=== PATIENT | female | born 1985 | race Caucasian/White ===

== ENCOUNTER 2018-05-16 11:42 | Outpatient (REF) | payer SELFPAY ==
[2018-05-16 14:19] LABS: TSH (W/Ref FT4) 1.11 uIU/mL (0.358-3.74)
== END 2018-05-16 12:02 ==
LOC: NCHCN 11:42
PROVIDERS: PCP Nurse Practitioner Family; Visit Provider Nurse Practitioner Family
DX: E89.0 Postprocedural hypothyroidism (principal)
CPT/HCPCS: 84443

== ENCOUNTER 2018-11-08 06:20 | Emergency (ER) | payer SELFPAY ==
[2018-11-08 06:24] VITALS: BP 126/93; PULSE 75; RESP 18; TEMP 36.4; O2SAT 99
--- NOTE | 2018-11-08 06:26 | W.ED.GENAD ---
Discharge Plan Disposition Patient Disposition: HOME Condition: Good Discharge Details Chief Complaint: Sorethroat Clinical Impression: Strep pharyngitis Primary Care Provider: Kelley Martin ED Provider: Wan Santamaria Home Meds and New Rx's Prescriptions: New clindamycin HCl 300 mg capsule 300 mg PO TID 7 Days Qty: 21 RF: 0 No Action acetaminophen [Tylenol Extra Strength] 500 MG tablet 1,000 mg PO Q6H PRN PRNRF: 0 levothyroxine [Synthroid] 112 MCG tablet 112 mcg PO DAILY RF: 0 ibuprofen 200 mg tablet 800 mg PO TID RF: 0 Discharge Instructions Instructions: Strep Throat (ED) Additional Instructions: You have strep throat. Please take the clindamycin 300 mg 3 times daily. Please take this with the yogurt with live cultures to prevent any diarrhea. Please take 1000 mg of Tylenol every 6 hours and 800 mg of ibuprofen every 6 hours to help with the pain sore throat. If you notice any worsening of your symptoms, or any new symptoms such as vomiting, diarrhea, fever, chills, shortness of breath, chest pain, numbness, weakness, or fainting , please return immediately to the emergency department for reevaluation. Please follow up with your primary care provider as soon as possible for reassessment and reevaluation. As always, it was a pleasure participating in your medical care today. Stand Alone Forms: Work Release Referrals: Kelley Martin [Primary Care Provider] - Medical Decision Making This is a pleasant 33-year-old female who presents today for evaluation of sore throat. Symptoms have been present for the last 24 hours. Physical exam demonstrates no concerning meningeal signs. No evidence of peritonsillar abscess. She has notable enlargement of the tonsils with exudate and notable erythema. Signs and symptoms are clinically consistent with strep. Strep testing was done but was negative, unfortunately this does not correlate with her current clinical scenario. We will send for culture, and treat with clindamycin secondary to her penicillin allergy. We discussed red flags which to return, the importance of fluids and NSAIDs. I have extensively reviewed the treatment plan and discharge instructions with the patient. I have addressed all patient concerns at this time. The patient was made aware of what symptoms to monitor for that would warrant a return to the emergency department. Discussed the plan with the patient, they demonstrate verbal understanding and agreement with our assessment and plan at this time. HPI General Date/Time Provider Initiated Documentation: 11/08/18 06:22. HPI Narrative: This is a pleasant 33-year-old female with a past medical history of hypothyroidism who presents today for evaluation of sore throat. Patient states that for the last 24 hours she has had a mild to moderate sore throat. She noticed exudates in her posterior oropharynx today, and keep to the ER for further evaluation and assessment. She denies any headache, posterior neck pain, cough, fever but does admit to occasional chills. She denies any numbness tingling weakness. She denies any other complaints at this time. Related Data Home Medications Medication Instructions Recorded Confirmed acetaminophen [Tylenol Extra 1,000 mg PO Q6H PRN PRN tab-cap 01/09/14 09/07/18 Strength] levothyroxine [Synthroid] 112 mcg PO DAILY 01/07/15 09/07/18 ibuprofen 200 mg tablet 800 mg PO TID tab 04/20/18 09/07/18 clindamycin HCl 300 mg PO TID 7 Days #21 cap 11/08/18 Previous Rx's Medication Instructions Recorded clindamycin HCl 300 mg PO TID 7 Days #21 cap 11/08/18 Allergies Allergy/AdvReac Type Severity Reaction Status Date / Time Penicillins Allergy Mild Uncertain Unverified 08/30/17 15:07 - very young age with previous reaction Sulfa (Sulfonamide Allergy Mild Uncertain Unverified 08/30/17 15:07 Antibiotics) of reaction - very young age w/previous reaction General Stated Complaint: Sorethroat EKTA: 5 Review of Systems Review of Systems All systems reviewed & are unremarkable except as noted in HPI and below PFSH Social History Smoking/Tobacco Use Status: Current-Occasional Tobacco Type: cigarettes Alcohol Intake: never Drug use: Never Substance use type: does not use 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 3.ENT: Atraumatic external nose and ears. Moist MM. Neck: Symmetric, trachea midline, No thyromegaly. Posterior oropharynx demonstrates notable erythema in the posterior oropharynx, enlarged tonsils, and notable tonsillar exudate. Patient demonstrates good movement of cervical neck. There is no nuchal rigidity, no nuchal tenderness. Patient is able to flex the neck without any difficulty or significant pain. Negative Kernig's and Brudzinski sign. 4.CVS: +S1/S2, No murmurs or gallops. Peripheral pulses 2+ and equal in all extremities. Brisk capillary refill in all extremities. 5.RESP: Unlabored respiratory effort. Clear to auscultation bilaterally. No wheezes rales or rhonchi 6.GI: Soft, Nontender/Nondistended, No hepatosplenomegaly. No guarding or rebound. 7.MSK: Normocephalic/Atraumatic, Extremities w/o deformity or ttp No cyanosis or clubbing, Normal movement of all extremities 8.Skin: Warm, Dry. No rashes or lesions. 9.Neuro: observer gravity prospecting II-XII grossly intact. Sensation grossly intact, no focal neurologic deficits. 10.Psych: (AAO) x3. Appropriate mood and affect Course Vital Signs Temperature 36.4 C L 11/08/18 06:24 Pulse 75 11/08/18 06:24 Respiratory Rate 18 11/08/18 06:24 Blood Pressure 126/93 H 11/08/18 06:24 Pulse Oximetry 99 11/08/18 06:24 Temperature 36.4 C L 11/08/18 06:24 Temperature Source Skin 11/08/18 06:24 Pulse 75 11/08/18 06:24 Respiratory Rate 18 11/08/18 06:24 Blood Pressure 126/93 H 11/08/18 06:24 Blood Pressure Position Sitting 11/08/18 06:24 Pulse Oximetry 99 11/08/18 06:24 Oxygen Delivery Method Room Air 11/08/18 06:24 Oxygen Flow Rate 0 11/08/18 06:24
[2018-11-08] MEDS: Clindamycin 300 MG CAP PO (06:36)
== END 2018-11-08 06:43 | disposition home or self-care (01) ==
LOC: ER 06:32
PROVIDERS: Emergency Provider Student in an Organized Health Care Education/Training Program; PCP Nurse Practitioner Family
DX: J02.0 Streptococcal pharyngitis (principal)
CPT/HCPCS: 99283

== ENCOUNTER 2018-12-28 12:01 | Outpatient (CLI) | payer MEDICAID, SELFPAY ==
[2018-12-28 12:45] LABS: Abs Immature Grans 0.04 k/cumm (0.0-0.09); Absolute Basophil Count 0.03 k/cumm (0.0-0.2); Absolute Eosinophil Count 0.21 k/cumm (0.0-0.7); Absolute Lymphocyte Count 2.54 k/cumm (1.2-3.4); Absolute Monocyte Count 0.64 k/cumm (0.11-0.7); Absolute Neutrophil Count 7.96 k/cumm (1.2-6.7); Basophils % 0.3; Eosinophils % 1.8; HCT 37.3 % (36.0-46.0); HGB 12.6 g/dL (12.0-15.5); Immature Grans % 0.4; Lymphocytes % 22.2; Mean Corp. HGB Concentration 33.8 g/dL (32.0-36.0); Mean Corpuscular Volume 91.6 fL (80-95); Mean Platelet Volume 10.3 fL (8.0-11.0); Monocytes % 5.6; Neutrophils % 69.7; Platelet Count 304 x1000/uL (130-400); RBC 4.07 m/cumm (4.00-5.20); RBC Distribution Width 13.1 % (11.7-14.6); White Blood Cell Count 11.42 k/cumm (4.4-10.8)
[2018-12-28 13:40] LABS: FREE T4 1.07 ng/dL (0.76-1.46); TSH 5.43 uIU/mL (0.36-3.74)
[2018-12-29 10:21] LABS: HIV-1/2 Ag & Ab Screen Negative (NEGAT)
[2018-12-29 10:24] LABS: Hepatitis B Surface Ag Negative (NEGAT)
[2018-12-29 10:25] LABS: Rubella IgG Ab (UVM) Positive; Varicella IgG Antibody Positive
[2018-12-29 10:43] LABS: Hepatitis C Ab w Rflx HCV PCR Negative (NEGAT)
[2018-12-29 16:45] LABS: Syphilis Total Ab w/Reflex Nonreactive (Nonreactive)
[2019-01-05 00:20] LABS: Specimen WB Whole Blood
== END 2018-12-28 12:21 ==
PROVIDERS: PCP Nurse Practitioner Family; Visit Provider Advanced Practice Midwife
DX: Z34.91 Encounter for supervision of normal pregnancy, unspecified, first trimester (principal); E03.9 Hypothyroidism, unspecified; Z11.4 Encounter for screening for human immunodeficiency virus [HIV]; Z11.59 Encounter for screening for other viral diseases; Z01.84 Encounter for antibody response examination
CPT/HCPCS: 36415; 81329; 86787; 86803; 86850; 86900; 86901; 87340; 87389; 84439; 84443; 85025; 86762; 86780

== ENCOUNTER 2018-12-28 14:41 | Outpatient (REF) | payer MEDICAID, SELFPAY ==
[2018-12-28 15:31] LABS: *AMPHETAMINES SCREEN URINE Negative (Negative); *BARBITURATES SCREEN URINE Negative (Negative); *BENZODIAZEPINES SCREEN URINE Negative (Negative); Cannabinoids THC Negative (Negative); Cocaine Screen,Urine Negative (Negative); METHADONE URINE SCREEN Negative (Negative); OPIATES URINE SCREEN Negative (Negative)
[2018-12-28 15:37] LABS: Tricyclic Antidepressants Negative (Negative)
[2018-12-29 16:02] LABS: Chlamydia Result Negative (Negative); GC Result Negative (Negative); Specimen Description CERVIX
[2019-01-01 21:09] LABS: Buprenorphine Negative; Norbuprenorphine Negative
== END 2018-12-28 15:01 ==
LOC: LBN 14:41
PROVIDERS: PCP Nurse Practitioner Family; Visit Provider Advanced Practice Midwife
DX: Z34.91 Encounter for supervision of normal pregnancy, unspecified, first trimester (principal); Z11.3 Encounter for screening for infections with a predominantly sexual mode of transmission
CPT/HCPCS: 80307; 87491; 87591; 87086

== ENCOUNTER 2019-01-11 10:40 | Outpatient (CLI) | payer MEDICAID, SELFPAY ==
[2019-01-11 11:04] LABS: Kit/Specimen SENT
== END 2019-01-11 11:00 ==
PROVIDERS: PCP Nurse Practitioner Family; Visit Provider Advanced Practice Midwife
DX: Z34.91 Encounter for supervision of normal pregnancy, unspecified, first trimester (principal); Z36.89 Encounter for other specified antenatal screening
CPT/HCPCS: 36415

== ENCOUNTER 2019-03-10 09:30 | Outpatient (CLI) | payer MEDICAID, SELFPAY ==
[2019-03-10 11:47] LABS: TSH (W/Ref FT4) 3.14 uIU/mL (0.36-3.74)
== END 2019-03-10 09:50 ==
PROVIDERS: PCP Nurse Practitioner Family; Visit Provider Advanced Practice Midwife
DX: E03.9 Hypothyroidism, unspecified (principal)
CPT/HCPCS: 36415; 84443

== ENCOUNTER 2019-05-03 02:26 | Outpatient (CLI) | payer MEDICAID, SELFPAY ==
[2019-05-03 09:17] LABS: HCT 35.8 % (36.0-46.0); HGB 11.9 g/dL (12.0-15.5); Mean Corp. HGB Concentration 33.2 g/dL (32.0-36.0); Mean Corpuscular Hemoglobin 31.2 pg (27.0-33.0); Mean Platelet Volume 10.4 fL (8.0-11.0); Platelet Count 233 x1000/uL (130-400); RBC 3.81 m/cumm (4.00-5.20); RBC Distribution Width 13.5 % (11.7-14.6); White Blood Cell Count 11.98 k/cumm (4.4-10.8)
[2019-05-03 09:19] LABS: Glucose,1 Hr (Glucola) 138 mg/dL (80-140)
[2019-05-03 10:11] LABS: TSH 4.67 uIU/mL (0.36-3.74)
[2019-05-03 10:31] LABS: FREE T4 0.97 ng/dL (0.76-1.46)
== END 2019-05-03 02:46 ==
PROVIDERS: PCP Nurse Practitioner Family; Visit Provider Advanced Practice Midwife
DX: O99.282 Endocrine, nutritional and metabolic diseases complicating pregnancy, second trimester (principal); E03.9 Hypothyroidism, unspecified; Z3A.26 26 weeks gestation of pregnancy
CPT/HCPCS: 36415; 82950; 85027; 84439; 84443

== ENCOUNTER 2019-05-08 07:43 | Outpatient (CLI) | payer MEDICAID, SELFPAY ==
[2019-05-08 09:48] LABS: Glucose 1 Hour 153 mg/dL
[2019-05-08 11:46] LABS: Glucose 3 Hour 123 mg/dL
== END 2019-05-08 08:03 ==
PROVIDERS: PCP Nurse Practitioner Family; Visit Provider Advanced Practice Midwife
DX: R73.09 Other abnormal glucose (principal); Z34.92 Encounter for supervision of normal pregnancy, unspecified, second trimester
CPT/HCPCS: 36415; 82951

== ENCOUNTER 2019-06-15 01:01 | Outpatient (CLI) | payer MEDICAID, SELFPAY ==
--- NOTE | 2019-06-15 11:45 | DI.US_ITS ---
EXAM: US OB RODNEY WEIGHT CLINICAL HISTORY: Hypothyroidism, , E03.9, Z34.90. COMPARISON: OB US 2-3 TRIMESTER TRANSABD*P from 02/25/2011 TECHNIQUE: Limited obstetrical ultrasound. FINDINGS: There is a single living intrauterine gestation. The estimated sonographic age is 34 weeks 1 day. T he fetus is in the cephalic presentation. heart rate is 158 beats per minute. Estimated weight is 2308 grams which is in the 70th percentile. Amniotic fluid index is 14.5 cm. Visually, t his is within normal limits. The placenta is posterior without evidence of previa. IMPRESSION: Single live intrauterine gestation as above. DATA REPOSITORY:
== END 2019-06-15 01:21 ==
PROVIDERS: PCP Nurse Practitioner Family; Visit Provider Advanced Practice Midwife
DX: O99.283 Endocrine, nutritional and metabolic diseases complicating pregnancy, third trimester (principal); E03.9 Hypothyroidism, unspecified; Z3A.34 34 weeks gestation of pregnancy
CPT/HCPCS: 76816

== ENCOUNTER 2019-07-05 16:31 | Outpatient (REF) | payer MEDICAID, SELFPAY | END 2019-07-05 16:51 | LOC: LBN 16:31 | PROVIDERS: PCP Nurse Practitioner Family; Visit Provider Advanced Practice Midwife | DX: Z34.93 Encounter for supervision of normal pregnancy, unspecified, third trimester (principal); Z36.85 Encounter for antenatal screening for Streptococcus B | CPT/HCPCS: 87081 ==

== ENCOUNTER 2019-07-07 16:41 | Outpatient (REF) | payer MEDICAID, SELFPAY | END 2019-07-07 17:01 | LOC: LBN 16:41 | PROVIDERS: PCP Nurse Practitioner Family; Visit Provider Advanced Practice Midwife | DX: Z34.93 Encounter for supervision of normal pregnancy, unspecified, third trimester (principal); Z36.85 Encounter for antenatal screening for Streptococcus B | CPT/HCPCS: 87081 ==

== ENCOUNTER 2019-07-26 15:53 | Outpatient (CLI) | payer MEDICAID, SELFPAY ==
[2019-07-26 16:55] LABS: FREE T4 0.95 ng/dL (0.76-1.46)
== END 2019-07-26 16:13 ==
PROVIDERS: PCP Nurse Practitioner Family; Visit Provider Advanced Practice Midwife
DX: E03.9 Hypothyroidism, unspecified (principal)
CPT/HCPCS: 84439; 84443

== ENCOUNTER 2019-08-02 12:33 | Outpatient (REF) | payer MEDICAID, SELFPAY ==
[2019-08-02 13:59] LABS: *AMPHETAMINES SCREEN URINE Negative (Negative); *BARBITURATES SCREEN URINE Negative (Negative); *BENZODIAZEPINES SCREEN URINE Negative (Negative); Cannabinoids THC Negative (Negative); Cocaine Screen,Urine Negative (Negative); METHADONE URINE SCREEN Negative (Negative); OPIATES URINE SCREEN Negative (Negative)
[2019-08-02 14:00] LABS: Tricyclic Antidepressants Negative (Negative)
[2019-08-10 14:42] LABS: Buprenorphine Negative
== END 2019-08-02 12:53 ==
LOC: LBN 12:33
PROVIDERS: PCP Nurse Practitioner Family; Visit Provider Advanced Practice Midwife
DX: Z34.93 Encounter for supervision of normal pregnancy, unspecified, third trimester (principal)
CPT/HCPCS: 80307

== ENCOUNTER 2019-08-09 02:19 | Inpatient (IN) | payer MEDICAID, SELFPAY ==
[2019-08-09 03:40] LABS: HCT 37.4 % (36.0-46.0); HGB 12.8 g/dL (12.0-15.5); Mean Corp. HGB Concentration 34.2 g/dL (32.0-36.0); Mean Corpuscular Hemoglobin 31.8 pg (27.0-33.0); Mean Corpuscular Volume 92.8 fL (80-95); Mean Platelet Volume 10.5 fL (8.0-11.0); Platelet Count 219 x1000/uL (130-400); RBC 4.03 m/cumm (4.00-5.20); RBC Distribution Width 14.4 % (11.7-14.6); White Blood Cell Count 9.34 k/cumm (4.4-10.8)
[2019-08-09] MEDS: Lactated Ringers 1,000 ML 125 ML IV (07:30)
[2019-08-09] MEDS: Normal Saline Flush 10 ML SYR IVP ×2 (07:40→09:36)
[2019-08-09] MEDS: Water,Injection,Sterile 10 ML VIAL (09:53)
[2019-08-09] MEDS: Lactated Ringers 1,000 ML 999 ML IV (11:53)
[2019-08-09] MEDS: FentaNYL/ROPIvacaine 2 mcg/ml and 0.1% 200 ML CADD Cassette EP (12:14)
[2019-08-09] MEDS: Hamamelis Leaf/Glycerin 100 EACH BOX PR (17:40)
[2019-08-09] MEDS: Ibuprofen 600 MG TAB PO (19:45)
[2019-08-09] MEDS: Acetaminophen 325 MG TAB 650 MG PO (19:45)
[2019-08-09 21:54] LABS: COVID-19 RT-PCR UVMMC Result Negative (Negative)
[2019-08-10] MEDS: Levothyroxine 125 MCG TAB PO (06:23)
[2019-08-10 06:26] LABS: HCT 32.6 % (36.0-46.0); HGB 10.6 g/dL (12.0-15.5); Mean Corp. HGB Concentration 32.5 g/dL (32.0-36.0); Mean Corpuscular Hemoglobin 30.7 pg (27.0-33.0); Mean Corpuscular Volume 94.5 fL (80-95); Mean Platelet Volume 10.5 fL (8.0-11.0); Platelet Count 189 x1000/uL (130-400); RBC 3.45 m/cumm (4.00-5.20); RBC Distribution Width 14.5 % (11.7-14.6); White Blood Cell Count 9.57 k/cumm (4.4-10.8)
[2019-08-10] MEDS: Ibuprofen 600 MG TAB PO ×2 (08:17→16:18)
[2019-08-10] MEDS: Acetaminophen 325 MG TAB 650 MG PO ×2 (08:17→16:18)
== END 2019-08-10 20:00 | disposition home or self-care (01) | DRG 806 ==
PROVIDERS: Advanced Practice Midwife; Admitting Provider Advanced Practice Midwife; PCP Nurse Practitioner Family; Visit Provider Advanced Practice Midwife
DX: O62.1 Secondary uterine inertia (principal); O71.4 Obstetric high vaginal laceration alone; Z37.0 Single live birth; O69.81X0 Labor and delivery complicated by cord around neck, without compression, not applicable or unspecified; Z3A.40 40 weeks gestation of pregnancy; O76 Abnormality in fetal heart rate and rhythm complicating labor and delivery; O48.0 Post-term pregnancy; O75.89 Other specified complications of labor and delivery; M54.9 Dorsalgia, unspecified; Z14.1 Cystic fibrosis carrier; O99.284 Endocrine, nutritional and metabolic diseases complicating childbirth; E03.9 Hypothyroidism, unspecified; Z87.891 Personal history of nicotine dependence; Z11.59 Encounter for screening for other viral diseases
CPT/HCPCS: 36415; 85027; 86850; 86900; 86901; U0003; J0595; J3490

== ENCOUNTER 2019-09-07 04:30 | Outpatient (CLI) | payer MEDICAID, SELFPAY ==
[2019-09-07 13:51] LABS: FREE T4 1.32 ng/dL (0.76-1.46); TSH 1.15 uIU/mL (0.36-3.74)
[2019-09-08 08:38] LABS: Thyroperoxidase Antibody >1300 U/mL (<=60)
== END 2019-09-07 04:50 ==
PROVIDERS: PCP Nurse Practitioner Family; Visit Provider Advanced Practice Midwife
DX: E03.9 Hypothyroidism, unspecified (principal)
CPT/HCPCS: 36415; 84439; 84443; 86376

== ENCOUNTER 2020-01-09 19:14 | Outpatient (REF) | payer MEDICAID, SELFPAY ==
[2020-01-09 19:07] LABS: TSH (W/Ref FT4) 7.24 uIU/mL (0.36-3.74)
[2020-01-09 19:47] LABS: FREE T4 1.09 ng/dL (0.76-1.46)
== END 2020-01-09 19:34 ==
LOC: NCHCN 19:14
PROVIDERS: PCP Nurse Practitioner Family; Visit Provider Nurse Practitioner Family
DX: E89.0 Postprocedural hypothyroidism (principal)
CPT/HCPCS: 84439; 84443

== ENCOUNTER 2020-01-19 15:00 | Emergency (ER) | payer MEDICAID, SELFPAY ==
[2020-01-19 15:05] VITALS: BP 134/79; PULSE 85; RESP 16; TEMP 36.2; O2SAT 98
--- NOTE | 2020-01-19 15:47 | ED.GENADUL_ITS ---
Discharge Plan Disposition Patient Disposition: HOME Condition: Stable Discharge Details Clinical Impression: Throat pain Primary Care Provider: Kelley Martin ED Provider: Tila Jain Home Meds and New Rx's Prescriptions: No Action One-A-Day Women's 1 28 mg iron- 800 mcg-235 mg capsule 1 cap PO DAILY Qty: 60 RF: 0 docusate sodium [Colace] 100 mg capsule 100 mg PO BID PRN (Reason: constipation, ) RF: 0 medroxyprogesterone [Depo-Provera] 150 mg/mL suspension 150 mg IM Q12W Qty: 1 RF: 4 levothyroxine 125 mcg capsule 137 mcg PO DAILY RF: 0 Discharge Instructions Instructions: Neck Pain (ED) Additional Instructions: You are scheduled for an ultrasound of your thyroid at 10 AM on Wednesday please report to the radiology department approximately 15 minutes before 10 AM. Follow up with primary care provider in 3-5 days. Return to ED sooner if any worsening or concerns. Increase oral fluids. Please take Tylenol or Ibuprofen with food every 4-6 hours as needed for pain and swelling. Referrals: Kelley Martin [Primary Care Provider] - Discharge Data Discharge Date/Time-TO BE ENTERED AT DEPARTURE: 01/19/20 16:52 Medical Decision Making <CHAN Waterman - Last Filed: 01/20/20 16:20> 34-year-old female presents with anterior neck discomfort over her thyroid for the past 24-36 hours. Recent medication changes noted. Clinically she does have mild discomfort to palpation but I do not appreciate any obvious nodules, swelling, erythema, etc. We discussed our options. Will obtain routine laboratory values including TSH and free T4. We will attempt to obtain ultrasound of her thyroid however it is Wednesday afternoon and this may not be a reality. Discussed if ultrasound is not able to be obtained, we could set this up for early next week versus obtaining CT imaging today. Patient will think about it, is unsure at the moment. Clinically she appears well, nontoxic, no evidence of thyroid storm. Medical Records Medical records reviewed: Yes I reviewed the patient's medical records. Lab Data Lab results reviewed: Yes I reviewed the patient's lab results. Lab results narrative: Laboratory Tests Range/Units 01/19/20 15:42 WBC (4.4-10.8) 10^3/uL 7.83 RBC (3.93-5.22) 10^6/uL 4.50 Hgb (11.2-15.7) g/dL 13.9 Hct (36.0-46.0) % 41.2 MCV (80-95) fL 91.6 MCH (27.0-33.0) pg 30.9 MCHC (32.0-36.0) % 33.7 RDW (11.7-14.6) % 12.6 Plt Count (130-400) 10^3/uL 290 MPV (8.0-11.0) fL 10.0 Immature Gran % 0.4 Neutrophils % 52.0 Lymphocytes % 38.8 Monocytes % 5.9 Eosinophils % 2.6 Basophils % 0.3 Nucleated RBC % % 0 Absolute Neutrophils (1.2-6.7) 10^3/uL 4.08 Absolute Lymphocytes (1.2-3.4) 10^3/uL 3.04 Absolute Monocytes (0.1-0.8) 10^3/uL 0.46 Absolute Eosinophils (0.0-0.7) 10^3/uL 0.20 Absolute Basophils (0.0-0.2) 10^3/uL 0.02 <Tila Jain - Last Filed: 01/19/20 17:18> Care handed off to me pending labs and reevaluation by my colleague CHAN Rivero. Please see his original HPI and physical exam. Labs resulted and are largely within normal limits, CBC has no abnormalities, CMP shows carbon dioxide level of 20.2, 12.8 anion gap. TSH level is 3.64 which is in the normal range. Discussed with radiology regarding having patient follow-up on Wednesday morning at 10 AM for an ultrasound they have put her in the schedule rotation as such and I will inform patient of this. HPI <CHAN Waterman - Last Filed: 01/20/20 16:20> General Mode of arrival: ambulatory . Date/Time Provider Initiated Documentation: 01/19/20 15:03 . Limitations to Documentation: no limitations . Information obtained by: patient . HPI Narrative: This is a 34-year-old female, past medical history Paramjit's disease, migraines, former smoker, currently breast-feeding. She states that she had her thyroid studies drawn sometime last week. Her levothyroxine was recently upped from 125, now to 137. She states that over the past 24-36 hours she has had anterior external neck pain over my thyroid. It started off as mild but now is moderate in nature. She denies any injury or trauma. She has never experienced anything like this. She denies any visual changes, sore throat, fever, chest pain, shortness of breath, abdominal pain, nausea, vomiting, jitteriness, excessive thirst, palpitations, anxiety. Related Data Home Medications Medication Instructions Recorded Confirmed vit 123-iron 28 mg-folic 1 cap PO DAILY #60 cap 07/19/19 01/19/20 acid 800 [id number] 235 mg capsule docusate sodium 100 mg capsule 100 mg PO BID PRN cap 09/20/19 medroxyprogesterone 150 mg/mL 150 mg IM Q12W #1 ml 09/20/19 01/19/20 intramuscular suspension levothyroxine 137 mcg PO DAILY 01/19/20 01/19/20 Previous Rx's Medication Instructions Recorded vit 123-iron 28 mg-folic 1 cap PO DAILY #60 cap 07/19/19 acid 800 [id number] 235 mg capsule medroxyprogesterone 150 mg/mL 150 mg IM Q12W #1 ml 09/20/19 intramuscular suspension Allergies Allergy/AdvReac Type Severity Reaction Status Date / Time Penicillins Allergy Mild Uncertain Unverified 01/19/20 15:09 - very young age with previous reaction Sulfa (Sulfonamide Allergy Mild Uncertain Unverified 01/19/20 15:09 Antibiotics) of reaction - very young age w/previous reaction General Stated Complaint: Sorethroat EKTA: 3 Review of Systems <CHAN Waterman - Last Filed: 01/20/20 16:20> Constitutional Constitutional: Denies fatigue, Denies fever(s), Denies headache(s) and Denies weakness Eyes Eyes: Denies change in vision ENT Ears, Nose, Mouth, and Throat: Denies headache(s), Reports neck pain, Denies sore throat, Denies throat swelling and Denies tongue swelling Cardiovascular Cardiovascular: Denies chest pain and Denies dyspnea Respiratory Respiratory: Denies cough and Denies dyspnea Gastrointestinal Gastrointestinal: Denies abdominal pain, Denies nausea and Denies vomiting Musculoskeletal Musculoskeletal: Reports neck pain, Denies numbness and Denies tingling Integumentary/Breasts Skin/Breast: Denies rash Neurologic Neurologic: Denies headache(s), Denies numbness, Denies tingling and Denies weakness Psychiatric Psychiatric: Denies anxiety Endocrine Endocrine: Denies fatigue Allergic/Immunologic Allergic/Immunologic: Denies throat swelling and Denies tongue swelling PFSH <CHAN Waterman - Last Filed: 01/20/20 16:20> Medical History Back pain 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) Partner also a carrier Hypothyroidism Migraine Tobacco use disorder (02/28/14) Family History Other Diabetes Hyperlipidemia Osteoporosis Personal history of malignant neoplasm Social History Smoking/Tobacco Use Status: Former Tobacco Use Quit Date: 02/04/19 Pack-years: 8 Tobacco: How many years used: 16 Quit status: considering quitting Smoking risk assessment performed?: Yes Alcohol Intake: never Drug use: Never Substance use type: does not use Number of Children: 1 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 Date GA/Weeks # Outcome Route Wgt Sex Labor Lgth Anesthes ia Location [facility] 04/16/11 42 No Successful vaginal 3628.739 g Female 6 hrs local [facility] other 08/09/19 40 No Successful vaginal 3770.487 g Female piper Faulkner CNM Delivery Date: 04/16/11 episiotomy, stripped membranes due to post dates. Tracie Santos Delivery Date: 08/09/19 No notes to display Exam <CHAN Waterman - Last Filed: 01/20/20 16:20> Const General: cooperative, healthy appearing, comfortable and no acute distress Orientation: alert, awake and oriented x3 HENMT Head: normal to inspection, normocephalic and atraumatic Ears: external ears normal, TM's normal bilaterally and EAC's normal General nose exam: external nose normal Face and sinus: normal facial exam Mouth: oral mucosae normal and moist mucous membranes Throat: posterior oropharynx normal Eyes General: appearance normal, both eyes and all related structures Alignment and Position: alignment normal Periorbital: periorbital findings normal Eyelids: eyelids normal Conjunctivae: conjunctivae normal Sclera: sclerae normal Cornea: corneas normal Pupils: PERRL EOM: EOM intact bilaterally Direct ophthalmoscopy: normal light reflex Neck Neck: normal visual inspection, full ROM, no lymphadenopathy, no meningeal signs, trachea midline and supple Thyroid: tender (Diffuse, mild) Resp Effort & Inspection: normal respiratory effort and able to speak in complete sentences Auscultation: clear to auscultation bilaterally Cardio Rate: regular rate Rhythm: regular rhythm Skin General skin exam: no rashes or lesions noted Neuro General: patient alert, patient awake, patient oriented x3, moves all extremities and no focal motor deficits Cranial Nerves: CN's II-XI intact bilaterally Cognition: normal cognition Speech: speech normal Gait: normal gait Motor: muscle tone normal throughout Sensory Exam: no sensory deficits noted Psych Appearance: grossly normal Mental Status: mental status grossly normal Course <CHAN Waterman - Last Filed: 01/20/20 16:20> Vital Signs Vital signs: Vital Signs Temperature 36.2 C L 01/19/20 15:05 Pulse 85 01/19/20 15:05 Respiratory Rate 16 01/19/20 15:05 Blood Pressure 134/79 01/19/20 15:05 Pulse Oximetry 98 01/19/20 15:05 Temperature 36.2 C L 01/19/20 15:05 Temperature Source Skin 01/19/20 15:05 Pulse 85 01/19/20 15:05 Respiratory Rate 16 01/19/20 15:05 Respiratory Effort Non-Labored 01/19/20 15:09 Blood Pressure 134/79 01/19/20 15:05 Blood Pressure Position Sitting 01/19/20 15:05 Pulse Oximetry 98 01/19/20 15:05 Oxygen Delivery Method Room Air 01/19/20 15:05 Oxygen Flow Rate 0 01/19/20 15:05 Pain Level 5 01/19/20 15:05 Sign Out <CHAN Waterman - Last Filed: 01/20/20 16:20> Sign Out Data: Sign Out Comment: Awaiting laboratory values and imaging. Last updated by Jose Zamarripa PA at 01/19/20 16:05
[2020-01-19 15:52] LABS: Abs Immature Grans 0.03 10^3/uL (0.0-0.06); Absolute Basophil Count 0.02 10^3/uL (0.0-0.2); Absolute Lymphocyte Count 3.04 10^3/uL (1.2-3.4); Absolute Monocyte Count 0.46 10^3/uL (0.1-0.8); Absolute Neutrophil Count 4.08 10^3/uL (1.2-6.7); Basophils % 0.3; Eosinophils % 2.6; HCT 41.2 % (36.0-46.0); HGB 13.9 g/dL (11.2-15.7); Immature Grans % 0.4; Lymphocytes % 38.8; MCH 30.9 pg (27.0-33.0); MCHC 33.7 % (32.0-36.0); MCV 91.6 fL (80-95); Monocytes % 5.9; Nucleated RBC 0 %; Platelet Count 290 10^3/uL (130-400); RDW 12.6 % (11.7-14.6); WBC 7.83 10^3/uL (4.4-10.8)
[2020-01-19 16:13] LABS: ALT 24 U/L (14-59); AST 12 U/L (15-37); Albumin 4.1 g/dL (3.4-5.0); Alkaline Phosphatase 77 U/L (46-116); Anion Gap 12.8 mmol/L (3-11); BUN 14 mg/dL (7-18); Bilirubin, Total 0.3 mg/dL (0.2-1.0); CO2 20.2 mmol/L (21.0-32.0); CREATININE 0.87 mg/dL (0.55-1.02); Calcium 9.5 mg/dL (8.5-10.1); Chloride 104 mmol/L (98-107); Glucose 91 mg/dL (74-106); Potassium 3.7 mmol/L (3.5-5.1); Sodium 137 mmol/L (136-145); TSH (W/Ref FT4) 3.64 uIU/mL (0.36-3.74); Total Protein 8.2 g/dL (6.4-8.2)
[2020-01-19 16:51] VITALS: BP 110/73; PULSE 78; RESP 18; TEMP 36.6; O2SAT 98
== END 2020-01-19 16:52 | disposition home or self-care (01) ==
PROVIDERS: Physician Assistant; Emergency Provider Registered Nurse Emergency; PCP Nurse Practitioner Family
DX: R07.0 Pain in throat (principal); E03.9 Hypothyroidism, unspecified
CPT/HCPCS: 36415; 80053; 99283; 84443; 85025

== ENCOUNTER 2020-07-24 09:33 | Outpatient (REF) | payer MEDICAID, SELFPAY ==
[2020-07-24 16:12] LABS: ALT 25 U/L (14-59); AST 13 U/L (15-37); Albumin 3.9 g/dL (3.4-5.0); Alkaline Phosphatase 65 U/L (46-116); Anion Gap 12.6 mmol/L (3-11); BUN 12 mg/dL (7-18); Bilirubin, Total 0.5 mg/dL (0.2-1.0); CO2 21.4 mmol/L (21.0-32.0); CREATININE 0.7 mg/dL (0.55-1.02); Calcium 8.7 mg/dL (8.5-10.1); Chloride 109 mmol/L (98-107); Glucose 87 mg/dL (74-106); Potassium 4.3 mmol/L (3.5-5.1); Sodium 143 mmol/L (136-145); TSH (W/Ref FT4) 2.54 uIU/mL (0.36-3.74); Total Protein 7.2 g/dL (6.4-8.2)
[2020-07-24 16:31] LABS: Calculated LDL 164 mg/dL (<100); Cholesterol 218 mg/dL (<200); HDL Cholesterol 38 mg/dL (40-60); Triglyceride 81 mg/dL (<150)
== END 2020-07-24 09:34 | disposition home or self-care (01) ==
LOC: NCHCN 09:33
PROVIDERS: PCP Nurse Practitioner Family; Visit Provider Nurse Practitioner Family
DX: E89.0 Postprocedural hypothyroidism (principal)
CPT/HCPCS: 80053; 80061; 84443

== ENCOUNTER 2020-11-01 06:24 | Emergency (ER) | payer MEDICAID, SELFPAY ==
[2020-11-01 06:28] VITALS: BP 131/91; PULSE 100; RESP 18; TEMP 36.2; O2SAT 99
--- NOTE | 2020-11-01 06:35 | W.ED.GENAD ---
Discharge Plan Disposition Patient Disposition: HOME Condition: Stable Discharge Details Clinical Impression: Spasm of thoracic back muscle Primary Care Provider: Kelley Martin ED Provider: Og Baker Home Meds and New Rx's Prescriptions: New orphenadrine citrate 100 mg tablet extended release 100 mg PO BID Qty: 10 RF: 0 Continued medroxyprogesterone [Depo-Provera] 150 mg/mL suspension 150 mg IM Q12W Qty: 1 RF: 4 levothyroxine 125 mcg capsule 137 mcg PO DAILY RF: 0 Discharge Instructions Instructions: Muscle Spasm (ED) Additional Instructions: Take it easy over the weekend. Heat and gentle stretching in addition to continued use of naproxen or ibuprofen as well as the prescribed muscle relaxant. Follow-up with primary care next week if not improving. Return to the ED if you develop any neurologic changes, shortness of breath, fever, worsening pain. Stand Alone Forms: Work Release Referrals: Kelley Martin [Primary Care Provider] - Medical Decision Making Patient took 2 [id number] this morning. Pain certainly seems to be related to muscle spasm and despite pleuritic component is way worse with movement. She has no shortness of breath. I am able to PERC her out for PE as heart rate mostly below 100 and only goes up when she moves or haves spasmodic pain. Do not believe this is PE or dissection. Will treat with IM Norflex and discharged home to continue nonsteroidals, Norflex,, stretching. Patient notes that she is breast-feeding. Norflex has no published information in regards to . Patient agreeable to pump and dump over the next few days. Patient is given a work note for today. Follow-up with primary care next week if not improving. Return to the ED if she develops fever, shortness of breath, chest pain, neurologic change, other concerns. HPI General Mode of arrival: ambulatory. Date/Time Provider Initiated Documentation: 11/01/20 06:35. Limitations to Documentation: no limitations. Information obtained by: patient and RN notes reviewed. HPI Narrative: Patient presents with upper thoracic back pain and spasm that goes up into her neck. It is worse on the left side. It hurts to move or breathe. There is no known injury or trauma. Started yesterday become worse overnight. She is supposed to be going to work this morning but can barely move her head because of pain into her neck and back. She has no fever, cough, shortness of breath. She has no neurologic changes. There is no prior history of DVT or PE. She has no leg pain or leg swelling. She has some discomfort into the chest with deep breathing only. Related Data Home Medications Medication Instructions Recorded Confirmed medroxyprogesterone 150 mg/mL 150 mg IM Q12W #1 ml 09/20/19 01/19/20 intramuscular suspension levothyroxine 137 mcg PO DAILY 01/19/20 11/01/20 orphenadrine citrate 100 mg PO BID #10 tab 11/01/20 Previous Rx's Medication Instructions Recorded medroxyprogesterone 150 mg/mL 150 mg IM Q12W #1 ml 09/20/19 intramuscular suspension orphenadrine citrate 100 mg PO BID #10 tab 11/01/20 Allergies Allergy/AdvReac Type Severity Reaction Status Date / Time Penicillins Allergy Mild Uncertain Unverified 11/01/20 06:32 - very young age with previous reaction Sulfa (Sulfonamide Allergy Mild Uncertain Unverified 11/01/20 06:32 Antibiotics) of reaction - very young age w/previous reaction General Stated Complaint: Orthopedic EKTA: 4 Review of Systems Narrative: As documented in HPI otherwise negative as below. 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) Partner also a carrier Hypothyroidism Migraine Tobacco use disorder (02/28/14) Family History Other Diabetes Hyperlipidemia Osteoporosis Personal history of malignant neoplasm Social History Smoking/Tobacco Use Status: Former Tobacco Use Quit Date: 02/04/19 Pack-years: 8 Tobacco: How many years used: 16 Quit status: considering quitting Smoking risk assessment performed?: Yes Alcohol Intake: never Drug use: Never Substance use type: does not use Number of Children: 1 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 Date GA/Weeks # Outcome Route Wgt Sex Labor Lgth Anesthesia Location Prov Complic 04/16/11 42 No Successful vaginal 3628.739 g Female 6 hrs local [facility] other 08/09/19 40 No Successful vaginal 3770.487 g Female chesterayesha StephensonVALDEMAR Arauz Delivery Date: 04/16/11 episiotomy, stripped membranes due to post dates. CristamarkTracie saunders Delivery Date: 08/09/19 No notes to display Exam Narrative Exam Narrative: Const: WDWN female sitting on stretcher, uncomfortable and unable to range upper back/neck without pain. HEENT: NC/AT. Normal facial exam. Neck: Decreased ROM due to pain in upper back. Trachea midline. Lungs: Normal respiratory effort. Lungs are clear. Cor: RRR without murmur/gallop. Back: No midline spinal tenderness. + paraspinal tenderness in thoracic area more left side than right. Decrease ROM due to pain. Neuro: A+O x 3. Normal speech, mentation, gait. Cranial nerves II - XII grossly intact. No gross motor or sensory deficit. Ext: No C/C/E. Skin: Warm and dry without rash. Course Vital Signs Vital signs: Vital Signs Temperature 97.2 F L 11/01/20 06:28 Pulse 100 H 11/01/20 06:28 Respiratory Rate 18 11/01/20 06:28 Blood Pressure 131/91 H 11/01/20 06:28 Pulse Oximetry 99 11/01/20 06:28 Temperature 97.2 F L 11/01/20 06:28 Temperature Source Temporal Artery Scan 11/01/20 06:28 Pulse 100 H 11/01/20 06:28 Respiratory Rate 18 11/01/20 06:28 Respiratory Effort Non-Labored 11/01/20 06:30 Blood Pressure 131/91 H 11/01/20 06:28 Blood Pressure Position Sitting 11/01/20 06:28 Pulse Oximetry 99 11/01/20 06:28 Oxygen Delivery Method Room Air 11/01/20 06:28 Oxygen Flow Rate 0 11/01/20 06:28 Pain Level 8 11/01/20 06:28
[2020-11-01] MEDS: Orphenadrine 60 MG/2 ML VIAL IM (06:58)
== END 2020-11-01 07:13 | disposition home or self-care (01) ==
PROVIDERS: Emergency Provider Emergency Medicine; PCP Nurse Practitioner Family
DX: M62.830 Muscle spasm of back (principal)
CPT/HCPCS: 96372; 99284; J2360; 99283

== ENCOUNTER 2021-06-17 20:30 | Outpatient (REF) | payer MEDICAID, SELFPAY ==
[2021-06-17 21:44] LABS: TSH (W/Ref FT4) 1.41 uIU/mL (0.36-3.74)
== END 2021-06-17 20:31 | disposition home or self-care (01) ==
LOC: NCHCN 20:30
PROVIDERS: PCP Nurse Practitioner Family; Visit Provider Nurse Practitioner Family
DX: E89.0 Postprocedural hypothyroidism (principal)
CPT/HCPCS: 84443

== ENCOUNTER 2022-04-07 01:44 | Outpatient (CLI) | payer MEDICAID, SELFPAY ==
--- NOTE | 2022-04-07 | DI.US_ITS ---
Exam(s) US BREAST LT COMPLETE US BREAST RT COMPLETE MG MAMMO DIAGNOSTIC BI EXAM: MG MAMMO DIAGNOSTIC BI AND BILATERAL COMPLETE BREAST ULTRASOUND CLINICAL HISTORY: F/U TO US, LT BREAST PAIN, ANATOMY, N64.4. TECHNIQUE: Both CC and MLO views of both breasts/ mammographic images were obtained with 3D tomosyn thesis technique and utilizing computer aided detection (CAD). BILATERAL COMPLETE BREAST ULTRASOUND was performed including all 4 quadrants of both breasts as well as both axillary regions. COMPARISON: None. This is a 36-year-old patient complaining left breast pain (denies lumps and jorge l es bloody nipple discharge). She is occasionally still breast-feeding a her 3-year-old child. She d enies fever and skin changes in the breasts. FINDINGS: DIAGNOSTIC BILATERAL MAMMOGRAM: The fibroglandular tissue pattern is moderately dense. There are no significant radiograph findings in left breast. In the right breast there is a subtle suggestion of a noncalcified slightly lobulated nodular density at approximately 6 o'clock position is seen on the CC view. This less evident on the MLO view. We performed additional spot compression view of the right breast which does not completely dissipate th is asymmetric density-possible nodule. No malignant-appearing microcalcification groups in either breast. There is no significant architectural distortion or skin thickening-traction. We proceeded to perform complete bilateral breast ultrasound due to her left breast symptoms and righ t breast mammographic findings. BILATERAL COMPLETE BREAST ULTRASOUND: There is no evidence of solid or significant cystic lesions in all 4 quadrants of either breast. Als o no evidence of edema nor abscess in the breasts in this patient who is still occasionally breast-fe eding. Absence of focal finding on ultrasound in the right breast implies that the finding on the mammogram is either asymmetric tissue or possibly a benign intramammary lymph node. Scanning of both axillary regions is negative for adenopathy. IMPRESSION: 1. No mammographic nor ultrasound evidence of malignancy in the left breast which is the side of her pain. No breast edema. No abscess. 2. Also no evidence of malignancy in the opposite-right breast. 3. No axillary adenopathy on either side. Appropriate follow-up is repeat breast imaging in 1 year, earlier if clinically indicated.. The patient was informed of the findings and follow-up recommendations by myself prior to leaving the department today. BI-RADS Category 2 - Benign Findings Breast Density - Category C - Heterogeneously dense Breast density Category C or D implies that the patient has dense breast tissue. Dense breast tissue can make it harder to find cancer on a mammogram. Dense breast tissue is also associated with an incr eased risk of breast cancer. This information about the result of the mammogram report was provided to the patient to raise their awareness. Use this report when you speak with the patient about their risks for breast cancer, which includes their family history. At that time, you may recommend additional screening tests (Ultrasoun d or MRI) as these tests may add significant information. A negative radiographic report should not delay biopsy if a dominant or clinically suspicious mass is present. Up to ten percent of cancers are not identified on mammography. A negative report may reinforce clinical impression. Adenosis and dense breasts may obscure an underlying neoplasm. False positive reports average 6 to 10%. Patient will receive a letter notifying them of these results.
== END 2022-04-07 02:04 ==
PROVIDERS: PCP Nurse Practitioner Family; Visit Provider Obstetrics & Gynecology
DX: N64.4 Mastodynia (principal)
CPT/HCPCS: 76642; 77062; 77066; G0279

== ENCOUNTER 2022-06-23 14:46 | Outpatient (REF) | payer MEDICAID, SELFPAY ==
[2022-06-23 16:47] LABS: ALT 38 U/L (14-59); AST 20 U/L (15-37); Albumin 3.9 g/dL (3.4-5.0); Alkaline Phosphatase 52 U/L (46-116); Anion Gap 12.1 mmol/L (3-11); BUN 10 mg/dL (7-18); Bilirubin, Total 0.3 mg/dL (0.2-1.0); CO2 25.9 mmol/L (21.0-32.0); CREATININE 0.9 mg/dL (0.55-1.02); Calcium 9.3 mg/dL (8.5-10.1); Calculated LDL 147 mg/dL (<100); Chloride 104 mmol/L (98-107); Cholesterol 220 mg/dL (<200); Glucose 86 mg/dL (74-106); HDL Cholesterol 43 mg/dL (40-60); Potassium 4.3 mmol/L (3.5-5.1); Sodium 142 mmol/L (136-145); Total Protein 7.3 g/dL (6.4-8.2); Triglyceride 152 mg/dL (<150)
== END 2022-06-23 14:47 | disposition home or self-care (01) ==
LOC: NCHCN 14:46
PROVIDERS: PCP Nurse Practitioner Family; Visit Provider Nurse Practitioner Family
DX: E89.0 Postprocedural hypothyroidism (principal); G43.109 Migraine with aura, not intractable, without status migrainosus; Z13.220 Encounter for screening for lipoid disorders
CPT/HCPCS: 80053; 80061; 84443

== ENCOUNTER 2022-07-15 01:10 | Outpatient (CLI) | payer MEDICAID, SELFPAY ==
--- NOTE | 2022-07-15 | DI.US_ITS ---
Exam(s) US THYROID EXAM: US THYROID CLINICAL HISTORY: ENLARGED THYROID,E04.9,MULTINODULAR GOITER, E04.2. TECHNIQUE: Ultrasound thyroid performed using standard protocol. COMPARISON: US THYROID ULTRASOUND from 09/26/2014 US THYROID ULTRASOUND from 03/24/2016 FINDINGS: ISTHMUS: 6 mm RIGHT LOBE: Size: 3.8 x 1.4 x 1.2 cm Echogenicity: Heterogeneous Nodules: 2.0 x 0.9 x 1.5 centimeter solid isoechoic nodule with smooth margins and no echogenic foci, TR 3. this nodule was seen on the prior exams but was not discretely measured. Measurements are espinoza roximately 1.1 x 0.7 by. 1.6 cm in 2017. LEFT LOBE: Size: 3.8 x 1.0 x 0.9 cm Echogenicity: . Genius Nodules: None. OTHER FINDINGS: No adenopathy. IMPRESSION: Small heterogeneous thyroid gland with similar appearance to prior. 2 centimeter maximal dimension nodule right lower lobe, TR 3. Present on prior exams with mild incre ase in size, likely benign. Follow-up could be considered due to size. DATA REPOSITORY:
== END 2022-07-15 01:30 ==
LOC: DI 01:10
PROVIDERS: PCP Nurse Practitioner Family; Visit Provider Nurse Practitioner Family
DX: E04.2 Nontoxic multinodular goiter (principal)
CPT/HCPCS: 76536

== ENCOUNTER 2022-12-07 22:22 | Emergency (ER) | payer MEDICAID, SELFPAY ==
--- NOTE | 2022-12-07 22:23 | W.ED.GENAD ---
Discharge Plan Discharge Details Chief Complaint: [facility]Medical Clinical Impression: Acute right lower quadrant pain, Rectal pain Primary Care Provider: Deb Haas ED Provider: Doug Ribeiro Home Meds and New Rx's Prescriptions: No Action sumatriptan succinate 50 mg tablet 50 mg PO ONCE levothyroxine 125 mcg capsule 137 mcg PO DAILY Medical Decision Making This is an overall very well-appearing normothermic and not tachycardic 37-year-old female with rectal pain and right lower quadrant tenderness concerning for the possibility of appendicitis versus rectal abscess. No obvious internal nor external hemorrhoids on exam. Given right lower quadrant tenderness I am concerned for acute appendicitis so will complete CT abdomen pelvis with IV contrast. Will obtain basic labs. Patient is not meeting sepsis criteria so will defer empiric antibiotics lactate and blood cultures at this point time. No pain out of proportion to suggest necrotizing soft tissue infection. No rash to abdomen to suggest zoster. No left lower quadrant tenderness nor diarrhea to suggest diverticulitis. No left upper quadrant tenderness and patient is not recently to suggest increased risk splenic arterial aneurysm. No right upper quadrant tenderness to suggest acute cholecystitis. No history of AAA and no hypotension to suggest ruptured AAA. No flank pain to suggest ureteral lithiasis. Patient has no history of inflammatory bowel disease so my suspicion is low for IBD. No dysuria nor frequency to suggest UTI. Patient denies abnormal vaginal discharge so I am not concerned for sexually transmitted infection. Patient denies any receptive anal intercourse so I am not concerned for any retained foreign bodies nor any rectal perforation. If patient has a reassuring CT scan and is appropriate for discharge she will likely benefit from stool softeners with outpatient general surgery follow-up for reassessment with possibility of office reassessment with consideration of flex sig based on clinical status at this point time. 11:08 PM We will sign patient out to Dr. Ruiz pending CT scan. 11:28 PM hCG negative. Basic metabolic panel with no ILIANA no anion gap. CBC with no anemia thrombocytopenia nor leukocytosis. 11:45 PM I signed patient out to Dr. Ruiz. If her CTs scan is reassuring she may benefit from MiraLAX to ensure that her stool remains soft. HPI General Date/Time Provider Initiated Documentation: 12/07/22 22:23. HPI Narrative: This is a 37-year-old female with a history of Paramjit's thyroiditis arriving to the emergency department from her job upstairs in the setting of rectal pain. Patient reports that she has had rectal pain for the past approximately 1 week. She last had a soft brown well-formed bowel movement yesterday. She says today she has not been able to pass stool as she has rectal discomfort. She has a history of external hemorrhoids but notes that this feels different. She took ibuprofen 5 hours ago. She has a bulging today whenever she attempts to take a bowel movement. She has no personal history of inflammatory bowel disease and she denies a family history of IBD Crohn's and ulcerative colitis. She has had no black nor bloody stools. She denies nausea vomiting fevers and chills. She denies abdominal pain. She denies dysuria and frequency. She has never had any surgeries to her stomach. She denies any anal sex. She denies routine tobacco, ethanol, and illicits. 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 Related Data Home Medications Medication Instructions Recorded Confirmed levothyroxine 125 mcg capsule 137 mcg PO DAILY 01/19/20 12/07/22 sumatriptan succinate 50 mg tablet 50 mg PO ONCE 07/20/22 12/07/22 Allergies Allergy/AdvReac Type Severity Reaction Status Date / Time Penicillins Allergy Mild Uncertain Unverified 03/20/22 08:53 - very young age with previous reaction Sulfa (Sulfonamide Allergy Mild Uncertain Unverified 03/20/22 08:53 Antibiotics) of reaction - very young age w/previous reaction General EKTA: 4 PFSH All Active Problems (Updated 12/07/22 @ 22:56 by Doug Ribeiro MD) Acute right lower quadrant pain (Acute) Rectal pain (Acute) Back pain (Acute) Tobacco use disorder (Acute 02/28/14) History of migraine (Acute) Hypothyroid (Acute 07/30/16) Hashimotos Multinodular non-toxic goiter (Acute 05/06/15) Medical History (Updated 12/07/22 @ 22:56 by Doug Ribeiro MD) Anxiety 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) Partner also a carrier Enlarged thyroid History of blood transfusion Hypothyroidism Low back pain Migraine Multinodular goiter Palpitations Right thyroid nodule TMJ tenderness Family History Other Diabetes Hyperlipidemia Osteoporosis Personal history of malignant neoplasm Social History Smoking/Tobacco Use Status: Former Tobacco Use Quit Date: 02/04/19 Pack-years: 8 Tobacco: How many years used: 16 Quit status: considering quitting Smoking risk assessment performed?: Yes Alcohol Intake: never Drug use: Never Substance use type: does not use Housing: apartment Number of Children: 1 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 Date GA/Weeks # Preg Succ Route Wgt Sex Labor Lgth Anesthesia Location Prov Complic 04/16/11 42 No vaginal 3628.739 g Female 6 hrs local Anea other 08/09/19 40 No vaginal 3770.487 g Female ppier Faulkner CNM Delivery Date: 04/16/11 Last Updated by: Tracie Santos CNM episiotomy, stripped membranes due to post dates. Exam Narrative Exam Narrative: General: Well-appearing in no acute distress speaking in complete sentences. Head: Normocephalic, atraumatic. Eye: Extraocular eye movements intact. No conjunctival injection. No scleral icterus. Ear, nose, mouth, throat: Grossly normal inspection. Normal voice, handling secretions normally. Neck: Trachea midline. Cardiovascular: Well-perfused distal extremities. Regular rate and rhythm. Respiratory: Nonlabored respiration. Clear lungs bilaterally. Gastrointestinal: Nondistended abdomen. Soft with right lower quadrant tenderness. No rebound. No guarding. Rectal exam: With nurse Tiffanie as assistant professor of religion I completed an external rectal inspection. Patient no obvious external hemorrhoids nor any obvious fissures. No signs of rectal prolapse. On internal exam patient had no focal areas of rectal wall tenderness nor any internal hemorrhoids. Musculoskeletal: No edema. Moving all 4 extremities spontaneously. Skin: Normal for age and race, grossly normal temperature and turgor. No acute rash. Neurologic: Alert and appropriate, no apparent acute deficits. Psychiatric: Mood and manner are appropriate. Grooming and personal hygiene are appropriate.
[2022-12-07 22:26] VITALS: BP 138/94; PULSE 71; RESP 16; TEMP 36.8; O2SAT 99
--- NOTE | 2022-12-07 22:45 | DI.CT_ITS ---
Exam(s) CT ABDOMEN PELVIS W EXAM: CT ABDOMEN PELVIS W CLINICAL HISTORY: Right lower quadrant tenderness rectal pain TECHNIQUE: Imaging Protocol: Axial computed tomography images with coronal and sagittal reformatted images were created and reviewed CONTRAST MATERIAL: Intravenous: Omnipaque 350 contrast volume:100 mL Oral: No COMPARISON: CT ABD PELVIS WITH CONTRAST from 10/23/2016 FINDINGS: ABDOMEN: Lung Bases: Calcified granuloma in the right lower lobe. Liver: Fatty infiltration of the liver. No measurable mass. Portal, Superior Mesenteric, and Splenic Veins: Unremarkable. Gallbladder and Biliary Tract: No radiodense calculus or dilation. Pancreas: Normal density, no abnormal calcifications or inflammatory process. Spleen: Normal. Adrenals: No masses seen. Kidneys: Normal size, contour and axis. No radiodense stones or obstructive uropathy. There is a 6 mm simple cyst in the right kidney. No follow-up is recommended. Abdominal Aorta: Abdominal portion non-dilated. Mild atherosclerosis. Bowel: No obstruction or bowel wall thickening. Appendix is unremarkable. Peritoneal Cavity: No ascites, collection or mesenteric inflammatory response. No free air. Lymph Nodes: Within normal limits. Bones: Within normal limits for the patient's age. Soft Tissues: There is a small fat containing umbilical hernia. PELVIS: Bladder: Symmetric distention, no gross wall thickening. Reproductive Organs: There are left ovarian cysts. The largest measures 3.1 cm in size. Lymph Nodes: Within normal limits. Bones: Within normal limits for the patient's age. IMPRESSION: 1. No acute abdominal or pelvic process. 2. 3.1 cm left ovarian cyst. RADIATION DOSE DELIVERED: 1,139.43mGy.cm Total DLP DATA REPOSITORY: All CT scans at this facility are submitted to the National Radiology Data Registry (NRDR) Dose Index Registry (DIR) with the [employer] (A[employer]). RADIATION OPTIMIZATION: All CT scans at this facility use at least one of these dose optimization te chniques: automated exposure control; mA and/or kV adjustment per patient size (includes targeted exa ms where dose is matched to clinical indication); or iterative reconstruction.
[2022-12-07] MEDS: Normal Saline Flush 10 ML SYR IVP (23:07)
[2022-12-07] MEDS: Omnipaque 350 MG/ML 100 ML BTL IJ (23:07)
[2022-12-07] MEDS: Normal Saline - Diluent 50 ML VIAL IJ (23:08)
[2022-12-07 23:12] LABS: Abs Immature Grans 0.02 10^3/uL (0.0-0.06); Absolute Basophil Count 0.02 10^3/uL (0.0-0.2); Absolute Eosinophil Count 0.18 10^3/uL (0.0-0.7); Absolute Lymphocyte Count 3.37 10^3/uL (1.2-3.4); Absolute Monocyte Count 0.54 10^3/uL (0.1-0.8); Absolute Neutrophil Count 3.43 10^3/uL (1.2-6.7); Basophils % 0.3; Eosinophils % 2.4; HCT 38.3 % (36.0-46.0); Immature Grans % 0.3; Lymphocytes % 44.6; MCH 30.8 pg (27.0-33.0); MCHC 33.9 % (32.0-36.0); MCV 91 fL (80-95); MPV 10.2 fL (8.0-11.0); Monocytes % 7.1; Neutrophils % 45.3; Platelet Count 262 10^3/uL (130-400); RBC 4.22 10^6/uL (3.93-5.22); RDW 12.5 % (11.7-14.6); RDW-SD 41.3 fL; WBC 7.56 10^3/uL (4.4-10.8)
[2022-12-07 23:22] LABS: Anion Gap 10.8 mmol/L (3-11); BUN 11 mg/dL (7-18); CO2 24.2 mmol/L (21.0-32.0); CREATININE 0.9 mg/dL (0.55-1.02); Calcium 9.8 mg/dL (8.5-10.1); Chloride 103 mmol/L (98-107); Glucose 98 mg/dL (74-106); Potassium 3.6 mmol/L (3.5-5.1); Sodium 138 mmol/L (136-145)
[2022-12-07 23:26] LABS: HCG Qual (Serum) Negative
--- NOTE | 2022-12-08 00:08 | DI.VRAD_ITS ---
PROCEDURE INFORMATION: Exam: CT Abdomen And Pelvis With Contrast Exam date and time: 12/07/2022 11:12 PM Age: 37 years old Clinical indication: Abdominal pain and other: Rectal pain; Localized; Right lower quadrant (rlq); Patient HX: Rlq pain and tenderness, rectal pain TECHNIQUE: Imaging protocol: Computed tomography of the abdomen and pelvis with contrast. Radiation optimization: All CT scans at this facility use at least one of these dose optimization techniques: automated exposure control; mA and/or kV adjustment per patient size (includes targeted exams where dose is matched to clinical indication); or iterative reconstruction. Contrast material: OMNIPAQUE 350; Contrast volume: 100 ml; Contrast route: INTRAVENOUS (IV); COMPARISON: CT ABD PELVIS WITH CONTRAST 10/23/2016 6:57 PM FINDINGS: Liver: Normal. No mass. Gallbladder and bile ducts: Normal. No calcified stones. No ductal dilation. Pancreas: Unremarkable. Spleen: Normal. Adrenal glands: Normal. No mass. Kidneys and ureters: Normal. No hydronephrosis. Stomach and bowel: Unremarkable. No bowel wall thickening or intestinal obstruction. Appendix: Normal appendix. Intraperitoneal space: Unremarkable. No pneumoperitoneum. No abscess. Vasculature: Unremarkable. Lymph nodes: Unremarkable. Urinary bladder: Unremarkable as visualized. Reproductive: There are 2 left ovarian cysts, the larger of which measures 3.1 cm in size. Bones/joints: Unremarkable. No acute fracture. Soft tissues: Unremarkable. IMPRESSION: There are 2 left ovarian cysts, the larger of which measures 3.1 cm in size. Dictated and Authenticated by: Chris Hall MD. Ordering:SILVERIO Camacho MD
--- NOTE | 2022-12-08 00:21 | ED.PROG_ITS ---
Date of service: 12/07/22 Time of Service: 00:00 Medical Decision Making Patient signed out to me by Dr. Ribeiro at change of shift with a CT abdomen pelvis pending. This was done due to some abdominal tenderness on palpation during exam, in spite of the fact that the patient was complaining of rectal pain. Her labs were all normal. The CT abdomen pelvis is normal with the exception to left ovarian cyst larger of which measures 3.1 cm in size. The patient has been having normal soft bowel movements. Dr. Ribeiro suggested some MiraLAX to use as needed as well as surgical follow-up. This was relayed to the pt. who will also checking with her [employer] to see if they want to reassess the cyst size in a month. Sign Out Sign Out Data: Sign Out Comment: Please follow-up CT scan for this patient with rectal pain and right lower quadrant tenderness. CT is reassuring she may benefit from a course of MiraLAX to ensure persistently soft stools with outpatient clinic follow-up with general surgery. Last updated by Doug Ribeiro MD at 12/07/22 23:49 Discharge Plan Disposition Patient Disposition: Home Condition: Good Discharge Details Clinical Impression: Acute right lower quadrant pain, Rectal pain Primary Care Provider: Deb Haas ED Provider: Adilia Ruiz Home Meds and New Rx's Prescriptions: Continued sumatriptan succinate 50 mg tablet 50 mg PO ONCE levothyroxine 125 mcg capsule 137 mcg PO DAILY Discharge Instructions Instructions: Rectal Pain (ED) Additional Instructions: Try MiraLAX 1 capful with fluids as needed to keep your stools soft. Surgery should call you for follow-up ointment. Return to ED for fever of 100.4 or above, bloody stool, severe localized abdominal pain, or any other concerns.
--- NOTE | 2022-12-08 00:23 | NUR.NOTE ---
Referral faxed to [facility] to f/u in a week or so for rectal pain.Nursing Note:
== END 2022-12-08 01:13 | disposition home or self-care (01) ==
PROVIDERS: Emergency Medicine; Emergency Provider Emergency Medicine; PCP Nurse Practitioner Family
DX: R10.31 Right lower quadrant pain (principal); N83.202 Unspecified ovarian cyst, left side; E06.3 Autoimmune thyroiditis; D66 Hereditary factor VIII deficiency; Z87.891 Personal history of nicotine dependence
CPT/HCPCS: 80048; 99285; 74177; 84703; 85025; 99284; J3490

== ENCOUNTER 2023-07-21 09:28 | Outpatient (CLI) | payer OTHER, SELFPAY ==
[2023-07-21 07:23] LABS: Abs Immature Grans 0.02 10^3/uL (0.0-0.06); Absolute Basophil Count 0.01 10^3/uL (0.0-0.2); Absolute Eosinophil Count 0.15 10^3/uL (0.0-0.7); Absolute Lymphocyte Count 2.14 10^3/uL (1.2-3.4); Absolute Monocyte Count 0.46 10^3/uL (0.1-0.8); Absolute Neutrophil Count 3.24 10^3/uL (1.2-6.7); Basophils % 0.2 %; Eosinophils % 2.5 %; HCT 41.2 % (36.0-46.0); HGB 13.8 g/dL (11.2-15.7); Immature Grans % 0.3 %; Lymphocytes % 35.5 %; MCH 31.3 pg (27.0-33.0); MCHC 33.5 % (32.0-36.0); MCV 93 fL (80-95); MPV 10.2 fL (8.0-11.0); Monocytes % 7.6 %; Neutrophils % 53.9 %; Platelet Count 230 10^3/uL (130-400); RBC 4.41 10^6/uL (3.93-5.22); RDW 12.4 % (11.7-14.6); RDW-SD 42.9 fL; WBC 6.02 10^3/uL (4.4-10.8)
[2023-07-21 07:52] LABS: Hemoglobin A1C 5.5 % (<5.7)
[2023-07-21 08:18] LABS: ALT 56 U/L (14-59); AST 22 U/L (15-37); Alkaline Phosphatase 43 U/L (46-116); Anion Gap 11.5 mmol/L (3-11); BUN 12 mg/dL (7-18); Bilirubin, Total 0.5 mg/dL (0.2-1.0); CO2 25.5 mmol/L (21.0-32.0); CREATININE 0.9 mg/dL (0.55-1.02); Calculated LDL 146 mg/dL (<100); Chloride 101 mmol/L (98-107); Cholesterol 206 mg/dL (<200); Estimated GFR 84.97 (mL/min/1.73m2); Glucose 100 mg/dL (74-106); HDL Cholesterol 40 mg/dL (40-60); Potassium 3.9 mmol/L (3.5-5.1); Sodium 138 mmol/L (136-145); TSH 3.39 uIU/Ml (0.36-3.74); Total Protein 7.8 g/dL (6.4-8.2); Triglyceride 101 mg/dL (<150)
[2023-07-21 08:34] LABS: FREE T4 1.13 ng/dL (0.76-1.46)
== END 2023-07-21 09:29 | disposition home or self-care (01) ==
LOC: LBO 09:28
PROVIDERS: PCP Nurse Practitioner Family; Visit Provider Nurse Practitioner Family
DX: Z13.1 Encounter for screening for diabetes mellitus (principal); E03.9 Hypothyroidism, unspecified; F41.9 Anxiety disorder, unspecified; Z13.220 Encounter for screening for lipoid disorders
CPT/HCPCS: 36415; 80053; 80061; 83036; 84439; 84443; 85025

== ENCOUNTER → 2023-08-02 01:09 | Outpatient (CLI) | payer OTHER, SELFPAY ==
--- NOTE | 2023-08-02 | DI.MAMMO_ITS ---
Exam(s) MAMMO SCREENING EXAM: MAMMO SCREENING CLINICAL HISTORY: SCREENING, Z12.39. TECHNIQUE: Bilateral full field digital CC and MLO mammographic images were obtained with 3D tomosyn thesis and utilizing computer aided detection (CAD). COMPARISON: Prior mammograms were reviewed. FINDINGS: There has been no significant change in the appearance and distribution of the fibroglandular tissue. There are no new spiculated masses nor malignant appearing microcalcification groups. There is no significant architectural distortion nor skin thickening-retraction. IMPRESSION: No radiographic evidence of malignancy. BI-RADS Category 1 - Negative Breast Density - Category C - Heterogeneously dense Breast density Category C or D implies that the patient has dense breast tissue. Dense breast tissue can make it harder to find cancer on a mammogram. Dense breast tissue is also associated with an incr eased risk of breast cancer. This information about the result of the mammogram report was provided to the patient to raise their awareness. Use this report when you speak with the patient about their risks for breast cancer, which includes their family history. At that time, you may recommend additional screening tests (Ultrasoun d or MRI) as these tests may add significant information. A negative radiographic report should not delay biopsy if a dominant or clinically suspicious mass is present. Up to ten percent of cancers are not identified on mammography. A negative report may reinforce clinical impression. Adenosis and dense breasts may obscure an underlying neoplasm. False positive reports average 6 to 10%. Patient will receive a letter notifying them of these results.
== END ==
PROVIDERS: PCP Nurse Practitioner Family; Visit Provider Nurse Practitioner Family
DX: Z12.31 Encounter for screening mammogram for malignant neoplasm of breast (principal); R92.333 Mammographic heterogeneous density, bilateral breasts
CPT/HCPCS: 77063; 77067

== ENCOUNTER 2023-08-05 13:32 | Emergency (ER) | payer OTHER, SELFPAY ==
[2023-08-05 13:38] VITALS: BP 148/108; PULSE 80; RESP 16; TEMP 36.3; O2SAT 95
--- NOTE | 2023-08-05 14:00 | DI.US_ITS ---
Exam(s) US ABDOMEN LIMITED EXAM: US ABDOMEN LIMITED CLINICAL HISTORY: ruq pain TECHNIQUE: Ultrasound abdomen performed using standard protocol. COMPARISON: CT ABD PELVIS WITH CONTRAST from 10/23/2016 FINDINGS: There is no ascites evident. LIVER: There is somewhat hyperechoic indicating element of steatosis. There no discrete focal hepati c lesions identified. GALLBLADDER/BILIARY: There are narrowing gallstones evident. No gallbladder wall edema nor perichole cystic fluid. The common hepatic duct isnot dilated, measuring 6mm at the level of hrio hepatis. PANCREAS: There is no evidence of pancreatic mass nor dilatation of the pancreatic duct. RIGHT KIDNEY:No evidence of solid mass, calculus, nor hydronephrosis. No cortical cysts evident. IMPRESSION: 1. Cholelithiasis. For, no obvious ultrasound evidence of acute cholecystitis and the patient was a pparently not tender over this area during scanning today biliary tree is not dilated. 2. Hepatic steatosis. No focal hepatic lesions. 3. No other right upper quadrant ultrasound findings and there is no ascites. DATA REPOSITORY:
[2023-08-05 14:04] VITALS: BP 148/108; PULSE 80; RESP 16; TEMP 36.3; O2SAT 95
[2023-08-05 14:21] LABS: Abs Immature Grans 0.01 10^3/uL (0.0-0.06); Absolute Basophil Count 0.03 10^3/uL (0.0-0.2); Absolute Eosinophil Count 0.11 10^3/uL (0.0-0.7); Absolute Lymphocyte Count 1.89 10^3/uL (1.2-3.4); Absolute Monocyte Count 0.41 10^3/uL (0.1-0.8); Absolute Neutrophil Count 2.61 10^3/uL (1.2-6.7); Basophils % 0.6 %; Eosinophils % 2.2 %; HCT 39.4 % (36.0-46.0); HGB 13.5 g/dL (11.2-15.7); Immature Grans % 0.2 %; Lymphocytes % 37.4 %; MCH 31.3 pg (27.0-33.0); MCHC 34.3 % (32.0-36.0); MCV 91 fL (80-95); MPV 10.7 fL (8.0-11.0); Monocytes % 8.1 %; Neutrophils % 51.5 %; Platelet Count 259 10^3/uL (130-400); RBC 4.31 10^6/uL (3.93-5.22); RDW 11.9 % (11.7-14.6); RDW-SD 40.3 fL; WBC 5.06 10^3/uL (4.4-10.8)
--- NOTE | 2023-08-05 14:31 | W.ED.GENAD ---
Discharge Plan Discharge Details Chief Complaint: Abd Prob Primary Care Provider: Deb Haas ED Provider: Eric Coreas Home Meds and New Rx's Prescriptions: No Action sumatriptan succinate 50 mg tablet 50 mg PO ONCE buspirone 5 mg tablet 5 mg PO BID levothyroxine 125 mcg capsule 137 mcg PO DAILY HPI General Mode of arrival: ambulatory. Date/Time Provider Initiated Documentation: 08/05/23 13:34. Limitations to Documentation: no limitations. Information obtained by: patient. HPI Narrative: 38-year-old female presents with chief complaint of abdominal pain. Patient states she has had intermittent abdominal pain over the past 3 to 4 days, worse postprandial. She notes she had lunch today around noon and has had significant pain since that time. Pain is localized to right upper quadrant. She has had associated nausea, no vomiting. No fever. Related Data Home Medications Medication Instructions Recorded Confirmed levothyroxine 125 mcg capsule 137 mcg PO DAILY 01/19/20 08/05/23 sumatriptan succinate 50 mg tablet 50 mg PO ONCE 07/20/22 08/05/23 buspirone 5 mg tablet 5 mg PO BID 08/05/23 08/05/23 Allergies Allergy/AdvReac Type Severity Reaction Status Date / Time Penicillins Allergy Mild Uncertain Unverified 08/05/23 13:41 - very young age with previous reaction Sulfa (Sulfonamide Allergy Mild Uncertain Unverified 08/05/23 13:41 Antibiotics) of reaction - very young age w/previous reaction General Stated Complaint: Abd Prob EKTA: 3 Exam Const General: cooperative and no acute distress HENMT Mouth: moist mucous membranes Eyes Conjunctivae: normal conjunctivae Sclera: normal sclerae Resp Auscultation: clear to auscultation bilaterally, no rales, no rhonchi and no wheezes Cardio Rate: regular rate and not tachycardic Rhythm: regular rhythm GI Inspection: non-distended Palpation: soft, not firm, no guarding, no masses, not rigid, tender in the RUQ; Park's sign negative and No ascites Skin General skin exam: no rashes or lesions noted Neuro General: patient alert, patient awake and tone normal Extrem General: no edema Course Vital Signs Vital signs: Vital Signs Temperature 36.3 C L 08/05/23 13:38 Pulse 80 08/05/23 13:38 Respiratory Rate 16 08/05/23 13:38 Blood Pressure 148/108 H 08/05/23 13:38 Pulse Oximetry 95 08/05/23 13:38 Temperature 36.3 C L 08/05/23 14:04 Temperature Source Tympanic 08/05/23 14:04 Pulse 80 08/05/23 14:04 Respiratory Rate 16 08/05/23 14:04 Blood Pressure 148/108 H 08/05/23 14:04 Blood Pressure Position Sitting 08/05/23 14:04 Pulse Oximetry 95 08/05/23 14:04 Oxygen Delivery Method Room Air 08/05/23 14:04 Oxygen Flow Rate 0 08/05/23 13:38 Pain Level 5 08/05/23 14:04 Comment taking ibuprofen and tylenol but has not had anything today. 08/05/23 13:38 Lab/Test Results Lab/Test Results: Laboratory Tests Range/Units 08/05/23 13:52 WBC (4.4-10.8) 10^3/uL 5.06 RBC (3.93-5.22) 10^6/uL 4.31 Hgb (11.2-15.7) g/dL 13.5 Hct (36.0-46.0) % 39.4 MCV (80-95) fL 91 MCH (27.0-33.0) pg 31.3 MCHC (32.0-36.0) % 34.3 RDW (11.7-14.6) % 11.9 Plt Count (130-400) 10^3/uL 259 MPV (8.0-11.0) fL 10.7 Immature Gran % % 0.2 Neutrophils % % 51.5 Lymphocytes % % 37.4 Monocytes % % 8.1 Eosinophils % % 2.2 Basophils % % 0.6 Nucleated RBC % (0.0-0.3) % 0.0 Absolute Neutrophils (1.2-6.7) 10^3/uL 2.61 Absolute Lymphocytes (1.2-3.4) 10^3/uL 1.89 Absolute Monocytes (0.1-0.8) 10^3/uL 0.41 Absolute Eosinophils (0.0-0.7) 10^3/uL 0.11 Absolute Basophils (0.0-0.2) 10^3/uL 0.03 Medical Decision Making 1434 --38-year-old female presents with right upper quadrant abdominal pain intermittent over the past 3 to 4 days, worse postprandial. Concern for acute cholecystitis. Consider pancreatitis. POCUS performed by me: Cholelithiasis noted. No pericholecystic fluid. Positive sonographic Park's. Plan for formal right upper quadrant ultrasound. I will check labs to assess for transaminitis and pancreatitis. Toradol IV given for pain. Patient remain n.p.o. with IV fluids. 1530 --Labs reviewed: No leukocytosis. Mild transaminitis noted. I spoke with Dr. Collado, discussed ED presentation course, she will evaluate the patient. 154??ultrasound of the right upper quadrant was interpreted by radiology: 1. Cholelithiasis. For, no obvious ultrasound evidence of acute cholecystitis and the patient was apparently not tender over this area during scanning today biliary tree is not dilated. 2. Hepatic steatosis. No focal hepatic lesions. 3. No other right upper quadrant ultrasound findings and there is no ascites. Lab Data Lab results reviewed: Yes I reviewed the patient's lab results. Labs: Laboratory Tests Range/Units 08/05/23 13:52 WBC (4.4-10.8) 10^3/uL 5.06 RBC (3.93-5.22) 10^6/uL 4.31 Hgb (11.2-15.7) g/dL 13.5 Hct (36.0-46.0) % 39.4 MCV (80-95) fL 91 MCH (27.0-33.0) pg 31.3 MCHC (32.0-36.0) % 34.3 RDW (11.7-14.6) % 11.9 Plt Count (130-400) 10^3/uL 259 MPV (8.0-11.0) fL 10.7 Immature Gran % % 0.2 Neutrophils % % 51.5 Lymphocytes % % 37.4 Monocytes % % 8.1 Eosinophils % % 2.2 Basophils % % 0.6 Nucleated RBC % (0.0-0.3) % 0.0 Absolute Neutrophils (1.2-6.7) 10^3/uL 2.61 Absolute Lymphocytes (1.2-3.4) 10^3/uL 1.89 Absolute Monocytes (0.1-0.8) 10^3/uL 0.41 Absolute Eosinophils (0.0-0.7) 10^3/uL 0.11 Absolute Basophils (0.0-0.2) 10^3/uL 0.03 Sodium (136-145) mmol/L 139 Potassium (3.5-5.1) mmol/L 3.7 Chloride (98-107) mmol/L 105 Carbon Dioxide (21.0-32.0) mmol/L 26.0 Anion Gap (3-11) mmol/L 8.0 BUN (7-18) mg/dL 12 Creatinine (0.55-1.02) mg/dL 1.0 Est GFR (CKD-EPI 2020) (mL/min/1.73m2) 74.88 Glucose (74-106) mg/dL 89 Calcium (8.5-10.1) mg/dL 8.6 Total Bilirubin (0.2-1.0) mg/dL 0.6 Conjugated Bilirubin (0.0-0.2) mg/dL 0.1 AST (15-37) U/L 38 H ALT (14-59) U/L 78 H Alkaline Phosphatase (46-116) U/L 48 Total Protein (6.4-8.2) g/dL 7.8 Albumin (3.4-5.0) g/dL 4.0 Lipase (16-77) U/L 32 Quality:SDOH Health Related Social Needs: No Data to Display PFSH All Active Problems (Updated 08/04/23 @ 19:42 by Samantha Collado DO) Nausea (Acute) Postprandial RUQ pain (Acute) Left elbow pain (Acute) Carpal tunnel syndrome, left (Acute) Left wrist pain (Acute) Cubital tunnel syndrome on left (Acute) Acute anal fissure (Acute) Ovarian cyst (Acute) Left ovarian cyst Back pain (Acute) Tobacco use disorder (Acute 02/28/14) History of migraine (Acute) Hypothyroid (Acute 07/30/16) Hashimotos Multinodular non-toxic goiter (Acute 05/06/15) Medical History History of blood transfusion Palpitations TMJ tenderness Low back pain Anxiety Multinodular goiter Enlarged thyroid Congenital factor VIII disorder 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) Partner also a carrier Migraine Family History Other Diabetes Hyperlipidemia Osteoporosis Personal history of malignant neoplasm Social History Smoking/Tobacco Use Status: Former Tobacco Use Quit Date: 02/04/19 Pack-years: 8 Tobacco: How many years used: 16 Quit status: considering quitting Smoking risk assessment performed?: Yes Alcohol Intake: never Drug use: Never Substance use type: does not use Housing: apartment Number of Children: 1 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 Date GA/Weeks # Preg Succ Route Wgt Sex Labor Lgth Anesthesia Location Prov Complic 04/16/11 42 No vaginal 3628.739 g Female 6 hrs local [place] other 08/09/19 40 No vaginal 3770.487 g Female piper Faulkner CNM Delivery Date: 04/16/11 Last Updated by: Tracie Santos CNM episiotomy, stripped membranes due to post dates. POCUS Exam (ED) Limited Gallbladder Exam DATE OF EXAM: 08/05/23 TIME OF EXAM: 14:33 PROVIDER THAT PERFORMED THE STUDY: Eric Coreas IS THIS A REPEAT EXAM DURING THIS ENCOUNTER: No REASON FOR VISIT: RUQ pain VISUALIZED STRUCTURES: Gallbladder and Liver PERTINENT FINDINGS/IMPRESSION: Cholelithiasis and Gallstones DIFFERENTIAL DIAGNOSIS: Cholelithiasis, cholecystitis Exam complete
[2023-08-05] MEDS: Ketorolac 15 MG/ML VIAL IVP (14:42)
[2023-08-05] MEDS: Lactated Ringers 1,000 ML 125 ML IV (14:43)
[2023-08-05 14:54] LABS: ALT 78 U/L (14-59); AST 38 U/L (15-37); Alkaline Phosphatase 48 U/L (46-116); BUN 12 mg/dL (7-18); Bilirubin, Direct 0.1 mg/dL (0.0-0.2); Bilirubin, Total 0.6 mg/dL (0.2-1.0); Calcium 8.6 mg/dL (8.5-10.1); Chloride 105 mmol/L (98-107); Estimated GFR 74.88 (mL/min/1.73m2); Glucose 89 mg/dL (74-106); Lipase 32 U/L (16-77); Potassium 3.7 mmol/L (3.5-5.1); Sodium 139 mmol/L (136-145); Total Protein 7.8 g/dL (6.4-8.2)
--- NOTE | 2023-08-05 15:47 | ED.PROG_ITS ---
Date of service: 08/05/23 Time of Service: 15:47 Medical Decision Making This dictation utilizes [id number] dictation software and may contain unedited grammatical errors. Patient seen in sign-out from Dr. Coreas, please see his note. Essentially, this 38 y/o F presents to ED today with a chief complaint of RUQ pain post-prandial- onset 3-4 days now. Was scheduled for US RUQ tomorrow, but nausea getting worse. Denies fever/chills. Patients' medical history: noncontributory. Family and social history: noncontributory. Pertinent exam findings / vital signs include RUQ tenderness. Differential / pathologies of concern include cholecystitis, cholelithiasis. Diagnostic studies of: -CBC, BMP, LFT, Lipase, US ABD RUQ. -CBC shows no leukocytosis -Lipase WNL -LFTs mildly elevated, do not suspect CBD obstruction -US shows cholelithiasis without choledocholithiasis, without cholecystitis Interventions of: -Gen Surg Consult w Dr. Collado > home on tramadol, zofran, and Augmentin, lap dean on Wednesday ED Course/Assessment/Plan: 38-year-old female presents with postprandial right upper quadrant pain with nausea without vomiting. Her labs are reassuring for no cholecystitis, no pancreatitis or cholangitis, ultrasound shows cholelithiasis, reasonable for elective cholecystectomy, consulted with general surgery they would like the patient home on tramadol, Zofran, Augmentin. Findings not consistent with cholangiitis, sepsis, cholecystitis, choledocholithiasis. Disposition of Cholelithiasis. Patient verbalized understanding of the plan and return to ED criteria and engaged in shared decision making. Medical Records Medical records reviewed: Yes I reviewed the patient's medical records. Imaging Data Radiologic Study: Attestation: I personally reviewed and interpreted this imaging study as follows: Imaging: Ultrasound Radiologist's impression: EXAM: US ABDOMEN LIMITED CLINICAL HISTORY: ruq pain TECHNIQUE: Ultrasound abdomen performed using standard protocol. COMPARISON: CT ABD PELVIS WITH CONTRAST from 10/23/2016 FINDINGS: There is no ascites evident. LIVER: There is somewhat hyperechoic indicating element of steatosis. There no discrete focal hepatic lesions identified. GALLBLADDER/BILIARY: There are narrowing gallstones evident. No gallbladder wall edema nor pericholecystic fluid. The common hepatic duct isnot dilated, measuring 6mm at the level of hiro hepatis. PANCREAS: There is no evidence of pancreatic mass nor dilatation of the pancreatic duct. RIGHT KIDNEY:No evidence of solid mass, calculus, nor hydronephrosis. No cortical cysts evident. IMPRESSION: 1. Cholelithiasis. For, no obvious ultrasound evidence of acute cholecystitis and the patient was apparently not tender over this area during scanning today biliary tree is not dilated. 2. Hepatic steatosis. No focal hepatic lesions. 3. No other right upper quadrant ultrasound findings and there is no ascites. Lab Data Lab results reviewed: Yes I reviewed the patient's lab results. Labs: Laboratory Tests Range/Units 08/05/23 13:52 WBC (4.4-10.8) 10^3/uL 5.06 RBC (3.93-5.22) 10^6/uL 4.31 Hgb (11.2-15.7) g/dL 13.5 Hct (36.0-46.0) % 39.4 MCV (80-95) fL 91 MCH (27.0-33.0) pg 31.3 MCHC (32.0-36.0) % 34.3 RDW (11.7-14.6) % 11.9 Plt Count (130-400) 10^3/uL 259 MPV (8.0-11.0) fL 10.7 Immature Gran % % 0.2 Neutrophils % % 51.5 Lymphocytes % % 37.4 Monocytes % % 8.1 Eosinophils % % 2.2 Basophils % % 0.6 Nucleated RBC % (0.0-0.3) % 0.0 Absolute Neutrophils (1.2-6.7) 10^3/uL 2.61 Absolute Lymphocytes (1.2-3.4) 10^3/uL 1.89 Absolute Monocytes (0.1-0.8) 10^3/uL 0.41 Absolute Eosinophils (0.0-0.7) 10^3/uL 0.11 Absolute Basophils (0.0-0.2) 10^3/uL 0.03 Sodium (136-145) mmol/L 139 Potassium (3.5-5.1) mmol/L 3.7 Chloride (98-107) mmol/L 105 Carbon Dioxide (21.0-32.0) mmol/L 26.0 Anion Gap (3-11) mmol/L 8.0 BUN (7-18) mg/dL 12 Creatinine (0.55-1.02) mg/dL 1.0 Est GFR (CKD-EPI 2020) (mL/min/1.73m2) 74.88 Glucose (74-106) mg/dL 89 Calcium (8.5-10.1) mg/dL 8.6 Total Bilirubin (0.2-1.0) mg/dL 0.6 Conjugated Bilirubin (0.0-0.2) mg/dL 0.1 AST (15-37) U/L 38 H ALT (14-59) U/L 78 H Alkaline Phosphatase (46-116) U/L 48 Total Protein (6.4-8.2) g/dL 7.8 Albumin (3.4-5.0) g/dL 4.0 Lipase (16-77) U/L 32 Quality:[facility] Health Related Social Needs: No Data to Display Sign Out Sign Out Data: Sign Out Comment: Follow-up on recommendations from Dr. Collado. Disposition pending reassessment and Dr. Collado's recommendations. Last updated by Eric Coreas MD at 08/05/23 15:44 Discharge Plan Disposition Patient Disposition: Home Condition: Stable Discharge Details Clinical Impression: Cholelithiasis Primary Care Provider: Deb Haas ED Provider: Wan Carrillo Home Meds and New Rx's Prescriptions: New ondansetron 4 mg tablet,disintegrating 4 mg PO Q8H PRNQty: 30 0RF tramadol 50 mg tablet 50 mg PO BID PRN (Reason: acute pain) Qty: 16 0RF ciprofloxacin HCl 500 mg tablet 500 mg PO BID 7 Days Qty: 14 0RF metronidazole 500 mg tablet 500 mg PO TID 7 Days Qty: 21 0RF Continued sumatriptan succinate 50 mg tablet 50 mg PO ONCE buspirone 5 mg tablet 5 mg PO BID levothyroxine 125 mcg capsule 137 mcg PO DAILY Discharge Instructions Instructions: Ciprofloxacin (By mouth), Metronidazole (By mouth), Tramadol (By mouth), Ondansetron (By mouth), Gallstones (ED), Laparoscopic Cholecystectomy (DC) Additional Instructions: You were seen in the emergency department for your right upper quadrant pain is worse after eating, and ultrasound we found evidence of gallstones, your labs are reassuring for no acute emergency that gallstones blocking the common bile duct, gallbladder infection or cholangitis. You were seen by general surgery Dr. Collado and you are on the OR schedule for a laparoscopic cholecystectomy on Wednesday. Please call the general surgery office for exact time of scheduling. Per their orders I am sending you home with a prescription for Augmentin, an antibiotic. I am sending you home with an antinausea medicine called ondansetron as well as a pain medicine called tramadol. Please return to the ED for any developing fever, worsening pain, inability to tolerate PO intake with nausea/vomiting. Referrals: [facility] [Provider Group] Deb Haas [Primary Care Provider] - Discharge Data Discharge Date/Time-TO BE ENTERED AT DEPARTURE: 08/05/23 16:49
[2023-08-05 16:48] VITALS: BP 142/90; PULSE 76; RESP 16; TEMP 36.3; O2SAT 95
--- NOTE | 2023-08-05 18:00 | SCONE_ITS ---
Date of service: 08/05/23 Time of Service: 15:30 Assessment and Plan Assessment and plan (1) Multinodular non-toxic goiter: Status: Acute (2) Cholelithiasis: Status: Acute Assessment and plan: Acute on chronic cholecystitis/cholelithiasis. Today we will send her home with pain medication/antibiotics/nausea medication Patient is scheduled for lap dean with Dr. Kirk on Wednesday Reviewed the importance of low-fat diet and what this entails. If she develops appear severe pain/fever or chills and is vomiting and cannot keep fluids down she should return to the ER. Plan:? The patient will be scheduled for laparoscopic cholecystectomy. They were given an information booklet on GB Dx and surgery.? The alternatives to surgery, risks, complications, and the possible need to convert to open cholecystectomy were discussed. Also bleeding, infection, pneumonia, blood clots, complications of anesthesia, damage to bowel, bladder, blood vessels, or bile ducts, liver, need for blood transfusions. Also: chronic pain, chronic diarrhea/post-dean syndrome, reoccurrence of signs and symptoms, port site hernias, adhesions.? All questions were answered, and the patient elected to proceed with surgery. Also d/w pt dietary restrictions, pt was given a handout on GB diet tips they should follow prior to surgery and for 2-6 wks after surgery, any warning signs to look for and when to go to ER- (severe pain, inability to keep fluids down, fever, jaundice). The pt was given a copy of the postop orders to make home arrangements for the postop stop state and encouraged to obtain Tylenol and ibuprofen, ice packs, and Miralax. We discussed expectations for the postop state and recovery time, and return to work (if applicable). This document was created with voice activated software and may contain errors. 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 She has been having severe right upper quadrant pain and nausea for the last 2 weeks. It escalated today and she went up in the ER. She ate a fried turkey burger today. She has right upper quadrant pain that radiates into her back and shoulder with associated nausea. She has not been having any diarrhea. Ultrasound today does show she has a large stone. She has a mild bump of her LFTs. She has never had any abdominal surgery before. She has no problems with anesthesia. She does smoke. US: IMPRESSION: 1. Cholelithiasis. For, no obvious ultrasound evidence of acute cholecystitis and the patient was apparently not tender over this area during scanning today biliary tree is not dilated. 2. Hepatic steatosis. No focal hepatic lesions. 3. No other right upper quadrant ultrasound findings and there is no ascites. Review of Systems All systems reviewed & are unremarkable except as noted in HPI and below PFSH All Active Problems Cholelithiasis (Acute) Nausea (Acute) Postprandial RUQ pain (Acute) Left elbow pain (Acute) Carpal tunnel syndrome, left (Acute) Left wrist pain (Acute) Cubital tunnel syndrome on left (Acute) Acute anal fissure (Acute) Ovarian cyst (Acute) Left ovarian cyst Back pain (Acute) Tobacco use disorder (Acute 02/28/14) History of migraine (Acute) Hypothyroid (Acute 07/30/16) Hashimotos Multinodular non-toxic goiter (Acute 05/06/15) Medical History History of blood transfusion Palpitations TMJ tenderness Low back pain Anxiety Multinodular goiter Enlarged thyroid Congenital factor VIII disorder 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) Partner also a carrier Migraine Family History Other Diabetes Hyperlipidemia Osteoporosis Personal history of malignant neoplasm Social History Smoking/Tobacco Use Status: Former Tobacco Use Quit Date: 02/04/19 Pack-years: 8 Tobacco: How many years used: 16 Quit status: considering quitting Smoking risk assessment performed?: Yes Alcohol Intake: never Drug use: Never Substance use type: does not use Housing: apartment Number of Children: 1 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 Date GA/Weeks # Preg Succ Route Wgt Sex Labor Lgth Anesth esia Location Prov [facility] 04/16/11 42 No vaginal 3628.739 g Female 6 hrs local [place] other 08/09/19 40 No vaginal 3770.487 g Female piper Faulkner CNM Delivery Date: 04/16/11 Last Updated by: Tracie Santos CNM episiotomy, stripped membranes due to post dates. Exam Narrative Exam Narrative: PHYSICAL EXAM GENERAL APPEARANCE: Alert, healthy appearance, oriented, x 3,? in no acute distress HYDRATION: Well hydrated HEAD, EYES, EARS, NECK, THROAT: Head is normocephalic, pupils equal, round, reactive to light and accommodation, ocular movement intact, sclera clear and no jaundice. ?Dentition intact. LUNGS: normal respiration/normal chest excursion. ?Clear to auscultation bilaterally. ? ?HEART: Regular rate and rhythm. no murmurs ABDOMEN: soft and non-tender to palpation.? Normal bowel sounds.? No hernias.? Right upper quadrant pain that radiates into the back. No umbilical hernias. Results Last Vital Signs Temp 36.3 C L 08/05/23 16:48 Pulse 76 08/05/23 16:48 Resp 16 08/05/23 16:48 BP 142/90 H 08/05/23 16:48 Pulse Ox 95 08/05/23 16:48 Labs 08/05/23 13:52 08/05/23 13:52 Labs: Laboratory Results - last 24 hr 08/05/23 13:52 WBC 5.06 RBC 4.31 Hgb 13.5 Hct 39.4 MCV 91 MCH 31.3 MCHC 34.3 RDW 11.9 Plt Count 259 MPV 10.7 Immature Gran % 0.2 Neutrophils % 51.5 Lymphocytes % 37.4 Monocytes % 8.1 Eosinophils % 2.2 Basophils % 0.6 Nucleated RBC % 0.0 Absolute Neutrophils 2.61 Absolute Lymphocytes 1.89 Absolute Monocytes 0.41 Absolute Eosinophils 0.11 Absolute Basophils 0.03 Sodium 139 Potassium 3.7 Chloride 105 Carbon Dioxide 26.0 Anion Gap 8.0 BUN 12 Creatinine 1.0 Est GFR (CKD-EPI 2020) 74.88 Glucose 89 Calcium 8.6 Total Bilirubin 0.6 Conjugated Bilirubin 0.1 AST 38 H ALT 78 H Alkaline Phosphatase 48 Total Protein 7.8 Albumin 4.0 Lipase 32
== END 2023-08-05 16:49 | disposition home or self-care (01) ==
PROVIDERS: Student in an Organized Health Care Education/Training Program; Emergency Provider Physician Assistant; PCP Nurse Practitioner Family
DX: K80.20 Calculus of gallbladder without cholecystitis without obstruction; E04.2 Nontoxic multinodular goiter; D66 Hereditary factor VIII deficiency; Z87.891 Personal history of nicotine dependence; Z14.1 Cystic fibrosis carrier
CPT/HCPCS: 00123; 36415; 76705; 80048; 80076; 83690; 96374; 99284; 85025; J1885

== ENCOUNTER 2023-08-09 07:39 | Day surgery (SDC) | payer OTHER, SELFPAY ==
--- NOTE | 2023-08-08 16:22 | SCONE_ITS ---
Date of service: 08/09/23 Time of Service: 09:15 Assessment and Plan Assessment and plan (1) Cholelithiasis: Status: Acute Assessment and plan: 38 yo woman with symptomatic gallstones. We had a long and detailed talk about indications, potential risks as well as likely benefits of having surgery. We had a detailed discussion about Gallbladder purpose/function and post- surgical anatomy. In particular the biggest risk being persistence/non-resolution of her symptoms. Namely, that her pain is from something else such as PUD or ovarian cysts to name some options. There is small risk of post-cholecystectomy syndrome. There is a small risk of bile leak and/or bile duct injury. She is in agreement and wishes to proceed with surgery. LFTs were grossly normal recently. Overall plan: Laparoscopic Cholecystectomy History of Present Illness Narrative: 38-year-old woman has been having right upper quadrant abdominal pain on and off for the last week. It severe when she eats. It lasts for an hour or 2 and then goes away. She thinks it happened a little bit at the end of her but it has not been an issue since then. Imaging shows gallstones in the neck of the gallbladder. PFSH All Active Problems Cholelithiasis (Acute) Nausea (Acute) Postprandial RUQ pain (Acute) Left elbow pain (Acute) Carpal tunnel syndrome, left (Acute) Left wrist pain (Acute) Cubital tunnel syndrome on left (Acute) Acute anal fissure (Acute) Ovarian cyst (Acute) Left ovarian cyst Back pain (Acute) History of migraine (Acute) Hypothyroid (Acute 07/30/16) Hashimotos Multinodular non-toxic goiter (Acute 05/06/15) Tobacco use disorder (Acute 02/28/14) Medical History History of blood transfusion Pt states she has never had a blood tranfusion Palpitations Pt. states caused by hypothyroidism TMJ tenderness Low back pain Anxiety Multinodular goiter Enlarged thyroid Congenital factor VIII disorder Pt. states she had this worked up and she does not have this. 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 Date GA/Weeks # Preg Succ Route Wgt Sex Labor Lgth Anesth esia Location Prov Complic 04/16/11 42 No vaginal 8 lb Female 6 hrs local Anea ot her 08/09/19 40 No vaginal 8 lb 5 oz Female piper Arauz CNM Delivery Date: 04/16/11 Last Updated by: Tracie Santos CNM episiotomy, stripped membranes due to post dates. Exam Narrative Exam Narrative: Gen: Nontoxic, comfortable and interactive Neuro: AxOx3 Psych: Good mood and affect, good insight and understanding Heart: Regular Lungs: Nonlabored breathing, without wheezing Abdomen: Soft, nondistended, grossly nontender
[2023-08-09] VITALS (14 sets, daily range): BP systolic 99–132; BP diastolic 59–70; PULSE 83–108; RESP 14–20; TEMP 35.9–36.5; O2SAT 94–99; BMI 31.3
--- NOTE | 2023-08-09 06:34 | W.ANESPRE ---
General Info Date of Service Date Performed: 08/09/23 Height: 5 ft 7 in Weight: 90.718 kg Body Mass Index (BMI): 31.3 Surgical Procedure: Operation Date: 08/09/23 09:10 Proposed Procedure Side Surgeon p Cholecystectomy Laparoscopic possible Open Reji Oneil MD Meds Allergies and Home Medications Allergies Allergy/AdvReac Type Severity Reaction Status Date / Time Penicillins Allergy Mild Uncertain Verified 08/09/23 08:12 - very young age with previous reaction Sulfa (Sulfonamide Allergy Mild Uncertain Verified 08/09/23 08:12 Antibiotics) of reaction - very young age w/previous reaction Home Medication Medication Instructions Recorded levothyroxine 125 mcg capsule 137 mcg PO DAILY 01/19/20 sumatriptan succinate 50 mg tablet 50 mg PO ONCE 07/20/22 buspirone 5 mg tablet 5 mg PO BID 08/05/23 ciprofloxacin HCl 500 mg tablet 500 mg PO BID 7 days #14 tabs 08/05/23 metronidazole 500 mg tablet 500 mg PO TID 7 days #21 tabs 08/05/23 ondansetron 4 mg disintegrating 4 mg PO Q8H PRN #30 tabs 08/05/23 tablet tramadol 50 mg tablet 50 mg PO BID PRN acute pain #16 08/05/23 tabs Current Visit Medications: Current Medications Generic Name Dose Route Start Last Admin Trade Name Freq PRN Reason Stop Dose Admin Acetaminophen 1,000 mg 08/09/23 06:00 Acetaminophen 500 Mg Tab PO 08/09/23 23:59 PREOP SANTY Gabapentin 600 mg 08/09/23 06:00 Gabapentin 300 Mg Cap PO 08/09/23 23:59 PREOP SANTY Ringer's Solution 1,000 mls @ 80 mls/hr 08/09/23 06:00 IV 08/09/23 23:59 INFUSION SANTY Cefazolin Sodium/Dextrose 2 gm in 50 mls @ 100 mls/hr 08/09/23 06:00 Ancef Duplex IVPB 08/09/23 23:59 PREOP SANTY Metronidazole 500 mg in 100 mls @ 100 mls/hr 08/09/23 06:00 Flagyl IVPB 08/09/23 23:59 PREOP SANTY IV Miscellaneous Supplies 1 each 08/09/23 06:00 Iv Access IV 08/09/23 23:59 DIRECTED SANTY Indocyanine Green 5 mg 08/09/23 06:00 Indocyanine Green 25 Mg Vial IVP 08/09/23 23:59 DIRECTED SANTY Sodium Chloride 0 ml 08/09/23 06:00 Normal Saline Flush 10 Ml Syr IV 08/09/23 23:59 PRN PRN Sodium Chloride 0 ml 08/09/23 06:00 Normal Saline 10 Ml Vial IJ 08/09/23 23:59 DIRECTED PRN Sterile Water 0 ml 08/09/23 06:00 Water,Injection,Sterile 10 Ml Vial IJ 08/09/23 23:59 DIRECTED PRN PFSH Active Problems Active Problems: Problem Status Onset Code Cholelithiasis K80.20 Nausea R11.0 Postprandial RUQ pain R10.11 Left elbow pain M25.522 Carpal tunnel syndrome, left G56.02 Left wrist pain M25.532 Cubital tunnel syndrome on left G56.22 Acute anal fissure K60.0 Ovarian cyst N83.209 Back pain M54.9 History of migraine Z86.69 Hypothyroid 07/30/16 E03.9 Multinodular non-toxic goiter 05/06/15 E04.2 Tobacco use disorder 02/28/14 F17.200 Medical History Medical History History of blood transfusion Pt states she has never had a blood tranfusion Palpitations Pt. states caused by hypothyroidism TMJ tenderness Low back pain Anxiety Multinodular goiter Enlarged thyroid Congenital factor VIII disorder Pt. states she had this worked up and she does not have this. 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 Date GA/Weeks # Preg Succ Route Wgt Sex Labor Lgth Anesthesia Location Prov Complic 04/16/11 42 No vaginal 3628.739 g Female 6 hrs local Anea other 08/09/19 40 No vaginal 3770.487 g Female minhrs VALDEMAR Faulkner Delivery Date: 04/16/11 Last Updated by: Tracie Santos CNM episiotomy, stripped membranes due to post dates. Vital Signs and Lab Results Lab Results Blood Type / Crossmatch: No Data to Display Complete Blood Count: White Blood Count 5.06 10^3/uL (4.4-10.8) 08/05/23 13:52 Red Blood Count 4.31 10^6/uL (3.93-5.22) 08/05/23 13:52 Hemoglobin 13.5 g/dL (11.2-15.7) 08/05/23 13:52 Hematocrit 39.4 % (36.0-46.0) 08/05/23 13:52 Platelet Count 259 10^3/uL (130-400) 08/05/23 13:52 Complete Metabolic Panel: Sodium 139 mmol/L (136-145) 08/05/23 13:52 Potassium 3.7 mmol/L (3.5-5.1) 08/05/23 13:52 Chloride 105 mmol/L (98-107) 08/05/23 13:52 Carbon Dioxide 26.0 mmol/L (21.0-32.0) 08/05/23 13:52 BUN 12 mg/dL (7-18) 08/05/23 13:52 Creatinine 1.0 mg/dL (0.55-1.02) 08/05/23 13:52 Est GFR (CKD-EPI 2020) 74.88 (mL/min/1.73m2) 08/05/23 13:52 Calcium 8.6 mg/dL (8.5-10.1) 08/05/23 13:52 Albumin 4.0 g/dL (3.4-5.0) 08/05/23 13:52 Glucose 89 mg/dL (74-106) 08/05/23 13:52 Hemoglobin A1c 5.5 % (<5.7) 07/21/23 07:10 Liver Function Panel: Alanine Aminotransferase (ALT/SGPT) 78 U/L (14-59) H 08/05/23 13:52 Aspartate Amino Transf (AST/SGOT) 38 U/L (15-37) H 08/05/23 13:52 Coagulation Panel: No Data to Display Cardiac Panel: No Data to Display Arterial Blood Gas: No Data to Display Venous Blood Gas: No Data to Display Pancreas Panel: Lipase 32 U/L (16-77) 08/05/23 13:52 Thyroid Panel: Thyroid Stimulating Hormone (TSH) 3.39 uIU/Ml (0.36-3.74) 07/21/23 07:10 Infectious Disease: No Data to Display Blood Cultures: No Data to Display Toxicology Panel: No Data to Display Panel: No Data to Display Anesthesia Assessment and Plan Anesthesia History Personal History: No History of Anesthesia Complications Family History: No Family History of Anesthesia Complications Exercise Tolerance Exercise Tolerance: Metabolic Equivalents>4 Cardiac & Pulmonary Exam Cardiac Exam: Normal S1/S2 Heart Sounds Pulmonary Exam: Clear Bilateral Breath Sounds Implantable Cardiac Device Does patient have a Pacemaker or an ICD?: No Airway Exam Known Difficult Airway: No Mallampati Class: 1 Mouth Opening: Normal (> 3cm) Thyromental Distance: Greater than 3 cm Neck Range of Motion: Full ROM Neck Circumference: Normal Teeth Condition: Normal Dentition ASA Classification ASA Score: ASA 2 Emergency Case?: No NPO Status NPO Status: NPO Clears >2 hours, Solids >8 hours Status Status: Negative HCG Anesthesia Plan Resuscitation Status: Full Code Anesthesia Technique: General Anesthesia Airway Planned: Endotracheal Tube Monitors Used: Standard Monitors Preoperative Comments:: 38 yo female for lap dean. Sig PMHx: anxiety, hypothyroid (on replacement), TMJ, former smoker.
[2023-08-09] MEDS: Acetaminophen 500 MG TAB 1000 MG PO (08:36)
[2023-08-09] MEDS: Gabapentin 300 MG CAP 600 MG PO (08:37)
[2023-08-09] MEDS: Lactated Ringers 1,000 ML 80 ML IV (08:45)
[2023-08-09] MEDS: Indocyanine green 25 MG VIAL 5 MG IVP (08:56)
[2023-08-09] MEDS: Normal Saline Flush 10 ML SYR IV (08:56)
[2023-08-09] MEDS: Heparin 5,000 UNITS/ML VIAL 5000 UNITS (10:16)
[2023-08-09] MEDS: Bupivacaine 0.25% Pres-Free 30 ML VIAL (10:26)
--- NOTE | 2023-08-09 10:48 | GB_PTH ---
PATIENT: Preeti Campbell LOC: [facility] U#:[id number] AGE/SX: 38/F ROOM: RE08/09/[address]: Reji Oneil : 1985 BED: DIS: 08/09/2023 SPEC #: [id number] RECD: 08/09/23 13:13 STATUS: LACY REQ #: [id number] NOÉ: 08/09/23 10:[address]: Reji Oneil DEPT: Surgical Specimen RECD BY: Karen Daniel ENTERED: 08/09/23 13:14 SP TYPE: GB OTHR DR: CONRADO JEAN Tissues: 1 - GALLBLADDER Procedures: GROSS AND MICRO LEVEL 3 Comments: [id number]
[2023-08-09] MEDS: Droperidol 5 MG/2 ML VIAL 0.625 MG IVP (11:37)
--- NOTE | 2023-08-09 11:38 | W.PM.OP ---
Date of service: 08/09/23 Time of Service: 15:07 Operative Note Operative Note Refer to Anesthesia Record Procedure Description: Procedures performed: 1. Laparoscopic cholecystectomy Pre-op diagnosis: Biliary colic Postoperative diagnosis: Same Surgeon: Guanakito Oneil Anesthesia: [employer] Teacher: Johnny Indication for procedure: 38-year-old woman with postprandial epigastric discomfort for more than a week in the setting of sludge and gallstones. FINDINGS: Nondistended and overall non-inflamed gallbladder. Normal biliary anatomy Specimens: 1. Gallbladder Complications: None Blood loss: 5 cc Urine output: Not measured Implants/drains: None Procedure in detail: Patient gave written consent and was in agreement with the indications, the likely benefits as well as the potential risks of surgery. She was taken back to the operating room where anesthesia was administered which was tolerated well. She was positioned supine on the operating room table and we then prepped and draped in sterile fashion. We confirmed DVT prophylaxis as well as antibiotics had been administered. When we were all in agreement with our timeout we started the procedure. Local anesthetic was injected at the umbilicus. A small stab incision was made within the umbilicus and a 5 mm trocar was used to enter the abdominal cavity through this. Insufflation was performed which was tolerated well. 2 more trocars were placed under direct visualization in the right hemiabdomen. Local anesthetic was also given in each of the sites. A 12 mm port was placed in the epigastrium under visualization. The fundus of the gallbladder was grasped and retracted towards the patient's left shoulder cephalad. This nicely exposed the biliary plate and the relevant anatomy. A combination of blunt and electrocautery dissection was performed isolating the cystic duct and the cystic artery. The entire cystic plate was cleared off confirming only 2 structures seen going into the gallbladder. These were clipped and divided. I then removed the rest of the gallbladder off the liver bed using electrocautery. It was placed in an Endo Catch bag and removed from the abdominal cavity. The specimen was passed off the back table and placed in formalin. I then checked the gallbladder fossa for any bile leaking or any bleeding. Hemostasis was excellent and there was no evidence of any bile leaking from the bed. The 12 mm port site was then closed with 0 Vicryl in the fascia using a Ed-Roula. I rechecked for hemostasis 1 last time and it remained excellent. We released pneumoperitoneum. I removed the 5 mm trocars. The skin was closed with running Monocryl and Dermabond was placed on top of each site. Patient tolerated the procedure well. The sponge, instruments and sharps counts were correct x3 at the end of the procedure. She was extubated and taken to the PACU in hemodynamically stable condition.
--- NOTE | 2023-08-09 11:39 | W.PM.DSUDISC ---
Date of service: 08/09/23 Time of Service: 11:39 Discharge Plan Disposition Patient Disposition: Home Condition: Good Discharge Details Attending Provider: Reji Oneil Primary Care Provider: Deb Haas Home Meds and New Rx's Prescriptions: No Action sumatriptan succinate 50 mg tablet 50 mg PO ONCE buspirone 5 mg tablet 5 mg PO BID ondansetron 4 mg tablet,disintegrating 4 mg PO Q8H PRNQty: 30 0RF Patient Comments: pt. hasnt taken tramadol 50 mg tablet 50 mg PO BID PRN (Reason: acute pain) Qty: 16 0RF ciprofloxacin HCl 500 mg tablet 500 mg PO BID 7 Days Qty: 14 0RF metronidazole 500 mg tablet 500 mg PO TID 7 Days Qty: 21 0RF levothyroxine 125 mcg capsule 137 mcg PO DAILY Discharge Instructions Additional Instructions: Incisions: Keep clean and dry but they do not need to be covered. It is okay to shower but no tub bathing for 1 week. You can peel the glue off after 1 week. Activity: As tolerated. There are no restrictions. Return to work, as tolerated in the next few days. If you need a work note call the surgery office and/or have any paperwork faxed to us to fill out for you. Diet: Regular diet as tolerated Medications: Resume all of your usual/regular home medications Follow-up: Follow-up is optional. If you are having any issues or concerns call the surgery office immediately. If you want to have a routine follow-up that is perfectly fine and you can call and schedule an. If everything is otherwise going well, you do not need to follow-up. Pain control: Take Tylenol, 1000 mg, every 6 hours on a schedule for the next 3 days. You can use ibuprofen in addition to Tylenol. Use heat and ice as needed. Narcotics should not be necessary and should be avoided as much as possible. Overall: Symptoms should not be worsening. If you have any difficulty breathing or you have return of symptoms of brought you to the hospital or your pain is otherwise worsening each day and you should call the doctor's office or come into the hospital to be checked out. Activity:: Activity as Tolerated Diet:: As Tolerated Discharge Orders Discharge Orders: Discharge Order (Routine); Ordered 08/09/23 Ordered By: Reji Oneil DS: Diagnosis Discharge Diagnosis (1) Cholelithiasis: Status: Acute Asessment and Plan: Laparoscopic cholecystectomy was uneventful and straightforward.
[2023-08-09] MEDS: HYDROmorphone 2 MG/ML SYR IVP ×2 (12:22→12:35)
--- NOTE | 2023-08-09 13:33 | W.ANESPOSTOP ---
Postoperative Evaluation Date, Time and Location Date Performed: 08/09/23 Time Performed: 13:34 Patient Location: Day Surgery Unit Vital Signs Most Recent Imported Vital Signs: Most Recent Vital Signs Temp Pulse Resp BP Pulse Ox 36.3 C L 87 18 119/65 94 08/09/23 12:55 08/09/23 12:55 08/09/23 12:55 08/09/23 12:55 08/09/23 12:55 Pain Score Most Recent Pain Score: Most Recent Pain Score Pain Level 4 08/09/23 12:55 Assessment Mental Status: Awake (Alert & Oriented to Patient Baseline) Airway and Respiratory Function: Patent airway with normal (patient baseline) respiratory exam Cardiovascular Function: Hemodynamically Stable Hydration Status: Adequately Hydrated Nausea & Vomiting: Active Nausea or Vomiting Present Nausea and Vomiting Management: Nausea and vomiting active, being addressed with medication and Other (received ephedrine and droperidol in PACU. ) Pain: Pain is tolerable per patient Peripheral Nerve Block: Patient did not receive a nerve block Postoperative Comments:: woke up in PACU I don't feel well, stating that it was mostly nausea related.
[2023-08-09] MEDS: Ondansetron 4 MG/2 ML VIAL IVP (14:32)
[2023-08-09] MEDS: ACETAMINOPHEN 1,000 MG/100 ML BTL 400 MG IVPB (14:56)
== END 2023-08-09 16:25 | disposition home or self-care (01) ==
PROVIDERS: PCP Nurse Practitioner Family; Visit Provider Student in an Organized Health Care Education/Training Program
PROC: 0FT44ZZ Resection of Gallbladder, Percutaneous Endoscopic Approach (ICD-10-PCS; CPT 47562; principal; 2023-08-09 09:00)
DX: K80.10 Calculus of gallbladder with chronic cholecystitis without obstruction (principal); E06.3 Autoimmune thyroiditis
CPT/HCPCS: 47562; 00123; 81025; 88304; J0131; J0665; J1100; J1170; J1644; J1790; J1805; J1885; J2250; J2371; J2405; J2704; J3475

== ENCOUNTER 2023-09-29 05:46 | Day surgery (SDC) | payer OTHER, SELFPAY ==
--- OUTSIDE RECORDS SUMMARY | 2023-09-29 05:48 | XMS_ITS | Continuity of Care Document ---
Author Name Unknown Organization [facility] Address [address] [place] [id number] Care Team Providers Care Sociology Faculty Member Name Role Phone Deb Haas Primary Care Physician Unavailab le Encounter [facility] Date(s): 05/14/23 - 05/14/23 [facility] [address] [place] [id number] Encounter Diagnosis Left carpal tunnel syndrome(Discharge Diagnosis) - 05/14/23 Left hand paresthesia(Discharge Diagnosis) - 05/14/23 Discharge Disposition: Home Attending Physician: Nikunj Jim DO Admitting Physician: Nikunj Jim DO Referring Physician: Sunni Kilpatrick ANP Allergies, Adverse Reactions, Alerts Substance Reaction Severity Status penicillin Unknown Active sulfa drugs Unknown Active Assessment and Plan Extracted from: Title:Consult Note Author:Nikunj Jim DO Date:05/14/23 Left Elbow pain and Hand par esthesias R/O Left Ulnar Neuropathy at the elbow vs CTS ?? She is a good candidate for EMG/NCV of her LUE today.? EMG/NCV Left UE and Cervical Spine Please see my full report in [employer] Consent was??obtained.? Sensory Nerve Conduction Study ? Nerve / Sites Rec. Site Onset Lat Peak Lat Amp Segments Distance Velocity ? ms ms ??V ?? mm m/s L Median - Dig II (Antidromic) ? Wrist Index 3.6 4.4 12.8 Wrist - Index 140 38 L Ulnar - Dig V (Antidromic) ? Wrist Dig V 1.9 2.4 23.8 Wrist - Dig V 140 75 L Radial - Superficial (Antidromic) ? Forearm Wrist 1.6 2.3 19.4 Forearm - Wrist 115 71 ? Motor Nerve Conduction Study? Nerve / Sites Muscle Latency Amplitude Segments Distance Lat Diff Velocity Dur. ? ms mV ?? mm ms m/s ms L Median - APB ? Wrist APB 3.9 5.9 Wrist - APB 80 ? 5.85 ? Elbow APB 9.0 6.4 Elbow - Wrist 295 5.1 58 6.02 L Ulnar - ADM ? Wrist ADM 2.1 9.4 Wrist - ADM 80 ? 5.46 ? B.Elbow ADM 5.8 7.4 B.Elbow - Wrist 225 3.7 61 5.69 ? A.Elbow ADM 7.0 8.4 A.Elbow - B.Elbow 65 1.2 55 5.75 ? F Waves ? Nerve F Latency ?? ms L Median - APB 29.3 L Ulnar - ADM 25.9 ? EMG Summary Table ? Spontaneous MUAP Recruitment Muscle IA Fib PSW Fasc Other Amp Dur. PPP Config Pattern L. Deltoid N None None None ----- N N None N N L. Biceps brachii (long head) N None None None ----- N N None N N L. Triceps brachii N None None None ----- N N None N N L. Flexor carpi radialis N None None None ----- N N None N N L. Flexor carpi ulnaris N None None None ----- N N None N N L. Abductor pollicis brevis N None None None ----- N N None N N ? Summary ?? The motor conduction test was normal in all 2 of the tested nerves: L Median - APB, L Ulnar - ADM. ?? The sensory conduction test was performed on 3 nerve(s). The results were normal in 2 nerve(s): L Ulnar - Dig V (Antidromic), L Radial - Superficial (Antidromic). Results outside the specified normal range were found in 1 nerve(s), as follows: ?In the L Median - Dig II (Antidromic) study o?the peak latency result was increased for Wrist stimulation ?? The F wave study was unremarkable in all 2 of the tested nerves: L Median - APB, L Ulnar - ADM ?? The needle EMG study was normal in all 6 tested muscles: L. Deltoid, L. Biceps brachii (long head), L. Triceps brachii, L. Flexor carpi radialis, L. Flexor carpi ulnaris, L. Abductor pollicis brevis. ? Conclusion: ?? Mild Left CTS No evidence of Ulnar Neuropathy or Cervical Radiculopathy ?? The above findings were discussed with her. ??She does have mild CTS on the left wrist and was advised to cont OT/splinting/stretching/nerve glides as well as working on proper ergonomics at her work space. ??If her symptoms persist then a Left Carpal Tunnel Cortisone injection would relieve her symptoms.??She noted she has an appointment to see Ortho Hand surgery in a few days.?? Please contact me with any questions/concerns.? Thank you for allowing me to participate in the care of this patient. ?? Dr. Nikunj Jim, DO Physiatry ? Functional Status 05/14/23 COVID-19 Screening None Medications levothyroxine 137 mcg (0.137 mg) oral tablet 137 mcg = 1 tab(s), TAKE ONE TABLET BY MOUTH EVERY DAY Start Date: 05/07/23 Status: Ordered SUMAtriptan 50 mg oral tablet TAKE ONE TABLET BY MOUTH AT ONSET OF HEADACHE, MAY REPEAT IN TWO HOURS IF NECESSARY (MAX OF 2 TABS/24 HOURS) Start Date: 05/07/23 Status: Ordered Problem List Condition Confirmation Course Effective Dates Status [facility] atus Informant Acute anal fissure Confirmed Active Anxiety Confirmed Active Back pain Confirmed Active Cystic fibrosis carrier Confirmed Active Ovarian cyst Confirmed Active Congenital factor VIII deficiency disease Confirmed Active Hypothyroid Confirmed Active Migraine Confirmed Active Multinodular non-toxic goiter Confirmed Active Left wrist pain Confirmed Active Cubital tunnel syndrome Confirmed Active Vital Signs Most recent to oldest [Reference Range]: 1 Peripheral Pulse Rate [60-100 bpm] 75 bp m (05/14/23 10:26 AM) Blood Pressure [90-140/60-90 mmHg] 119/8 4mmHg (05/14/23 10:26 AM) Mean Arterial Pressure, Cuff [70-110 mmH g] 96 mmHg (05/14/23 10:26 AM) Social History Social History Type Response Tobacco Former tobacco user Tobacco Use:. Sex Patient Care team information Care Team Personnel Name: Deb Haas Position: [facility] No Access Member Role: Primary Care Physician Name: Sunni Kilpatrick ANP Position: [facility] No Access Member Role: Informed Provider Address: Address: [facility] Occupational Medicine [address] [place] [address] [place] [address]
--- OUTSIDE RECORDS SUMMARY | 2023-09-29 05:48 | XMS_ITS | Continuity of Care Document ---
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 Name Role Phone Deb Haas Primary Care Physician Unavailab le Encounter [facility] Date(s): 05/14/23 - 05/14/[address] [phone] Discharge Disposition: Home Attending Physician: Nikunj Jim DO Admitting Physician: Nikunj Jim DO Referring Physician: Sunni Kilpatrick ANP Allergies, Adverse Reactions, Alerts Substance Reaction Severity Status penicillin Unknown Active sulfa drugs Unknown Active Medications levothyroxine 137 mcg (0.137 mg) oral [...] List Condition Confirmation Course Effective Dates Status [facility] Informant Acute anal fissure Confirmed Active Anxiety Confirmed Active Back pain Confirmed Active Cystic fibrosis carrier Confirmed Active Ovarian cyst Confirmed Active Congenital factor VIII deficiency disease Confirmed Active Hypothyroid Confirmed Active Migraine Confirmed Active Multinodular non-toxic goiter Confirmed Active Left wrist pain Confirmed Active Cubital tunnel syndrome Confirmed Active Social History Social History Type Response Tobacco Former tobacco user Tobacco Use:. Sex Patient Care team information Care Team Personnel Name: Deb Haas Position: [facility] No Access Member Role: Primary Care Physician Name: Sunni Kilpatrick ANP Position: [facility] No Access Member Role: Informed Provider Address: Address: [facility] Occupational Medicine [facility] [place], [place] [address]
--- NOTE | 2023-09-29 06:16 | ANES.PREOP_ITS ---
General Info Date of Service Date Performed: 09/29/23 Height: 5 ft 7 in Weight: 91.8 kg Body Mass Index (BMI): 31.6 Surgical Procedure: Operation Date: 09/29/23 07:40 Proposed Procedure Side Surgeon p Wrist ECTR Left Mamadou Joyce MD Meds Allergies and Home Medications Allergies Allergy/AdvReac Type Severity Reaction Status Date / Time Penicillins Allergy Mild Uncertain Verified 09/29/23 06:29 - very young age with previous reaction Sulfa (Sulfonamide Allergy Mild Uncertain Verified 09/29/23 06:29 Antibiotics) of reaction - very young age w/previous reaction Home Medication Medication Instructions Recorded levothyroxine 125 mcg capsule 137 mcg PO DAILY 01/19/20 sumatriptan succinate 50 mg tablet 50 mg PO ONCE 07/20/22 buspirone 5 mg tablet 5 mg PO BID 08/05/23 ondansetron 4 mg disintegrating 4 mg PO Q8H PRN #30 tabs 08/05/23 tablet cyclobenzaprine 5 mg tablet 5 mg PO QHS PRN muscle spasm #28 09/08/23 tabs Current Visit Medications: Current Medications Generic Name Dose Route Start Last Admin Trade Name Freq PRN Reason Stop Dose Admin Ringer's Solution 1,000 mls @ 80 mls/hr 09/29/23 06:00 IV 09/29/23 23:59 INFUSION SANTY Cefazolin Sodium/Dextrose 2 gm in 50 mls @ 100 mls/hr 09/29/23 06:00 Ancef Duplex IVPB 09/29/23 23:59 PREOP SANTY IV Miscellaneous Supplies 1 each 09/29/23 06:00 Iv Access IV 09/29/23 23:59 DIRECTED SANTY Sodium Chloride 0 ml 09/29/23 06:00 Normal Saline Flush 10 Ml Syr IV 09/29/23 23:59 PRN PRN Sodium Chloride 0 ml 09/29/23 06:00 Normal Saline 10 Ml Vial IJ 09/29/23 23:59 DIRECTED PRN Sterile Water 0 ml 09/29/23 06:00 Water,Injection,Sterile 10 Ml Vial IJ 09/29/23 23:59 DIRECTED PRN PFSH Active Problems Active Problems: Problem Status Onset Code PONV (postoperative nausea and vomiting) R11.2, Z98.890 Nausea R11.0 Postprandial RUQ pain R10.11 Left elbow pain M25.522 Carpal tunnel syndrome, left G56.02 Left wrist pain M25.532 Cubital tunnel syndrome on left G56.22 Acute anal fissure K60.0 Ovarian cyst N83.209 Back pain M54.9 History of migraine Z86.69 Hypothyroid 07/30/16 E03.9 Multinodular non-toxic goiter 05/06/15 E04.2 Tobacco use disorder 02/28/14 F17.200 Medical History Medical History History of blood transfusion Pt states she has never had a blood tranfusion Palpitations Pt. states caused by hypothyroidism TMJ tenderness Low back pain Anxiety Multinodular goiter Enlarged thyroid Congenital factor VIII disorder Pt. states she had this worked up and she does not have this. 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 Date GA/Weeks # Preg Succ Route Wgt Sex Labor Lgth Anesth esia Location Prov [facility] 04/16/11 42 No vaginal 3628.739 g Female 6 hrs local [facility] other 08/09/19 40 No vaginal 3770.487 g Female piper Faulkner CNM Delivery Date: 04/16/11 Last Updated by: Tracie Santos CNM episiotomy, stripped membranes due to post dates. Vital Signs and Lab Results Vital Signs Most Recent Vital Signs in EMR: Temp Pulse Resp BP Pulse Ox 36.5 C 80 16 119/81 98 09/29/23 06:23 09/29/23 06:23 09/29/23 06:23 09/29/23 06:23 09/29/23 06:23 Lab Results Blood Type / Crossmatch: No Data to Display Complete Blood Count: No Data to Display Complete Metabolic Panel: No Data to Display Liver Function Panel: No Data to Display Coagulation Panel: No Data to Display Cardiac Panel: No Data to Display Arterial Blood Gas: No Data to Display Venous Blood Gas: No Data to Display Pancreas Panel: No Data to Display Thyroid Panel: No Data to Display Infectious Disease: No Data to Display Blood Cultures: No Data to Display Toxicology Panel: No Data to Display Panel: No Data to Display Anesthesia Assessment and Plan Anesthesia History Personal History: PONV Family History: No Family History of Anesthesia Complications Exercise Tolerance Exercise Tolerance: Metabolic Equivalents>4 Cardiac & Pulmonary Exam Cardiac Exam: Normal S1/S2 Heart Sounds Pulmonary Exam: Clear Bilateral Breath Sounds Implantable Cardiac Device Does patient have a Pacemaker or an ICD?: No Airway Exam Known Difficult Airway: No Mallampati Class: 1 Mouth Opening: Normal (> 3cm) Thyromental Distance: Greater than 3 cm Neck Range of Motion: Full ROM Neck Circumference: Normal Teeth Condition: Normal Dentition ASA Classification ASA Score: ASA 2 Emergency Case?: No NPO Status NPO Status: NPO Clears >2 hours, Solids >8 hours Status Status: Negative HCG Anesthesia Plan Resuscitation Status: Full Code Anesthesia Technique: General Anesthesia Airway Planned: Natural Airway Monitors Used: Standard Monitors Preoperative Comments:: 38 yo female for ECTR Sig PMHx: anxiety, hypothyroid (on replacement), TMJ, former smoker. Previous Anes: - lap dean, mac 3 grade 2a, easy mask. PONV immediately on awakening (had received prop, decadron, zofran. IM ephedrine and drop in PACU). Due to PONV history discussed block as primary vs propofol only anesthesia. Plan for propofol only as she does not want to be awake at all.
[2023-09-29 06:23] VITALS: BP 119/81; PULSE 80; RESP 16; TEMP 36.5; O2SAT 98
[2023-09-29 06:39] VITALS: BMI 31.6
[2023-09-29] MEDS: Lactated Ringers 1,000 ML 80 ML IV (06:47)
--- NOTE | 2023-09-29 07:14 | W.PM.DSUDISC ---
Date of service: 09/29/23 Time of Service: 07:14 Discharge Plan Disposition Patient Disposition: Home Condition: Good Discharge Details Reason For Visit: L ECTR Attending Provider: Mamadou Joyce Primary Care Provider: Deb Haas Home Meds and New Rx's Prescriptions: New hydrocodone-acetaminophen 5-325 mg tablet 1 tab PO Q6H PRN (Reason: pain) Qty: 4 0RF acetaminophen 500 mg tablet 1,000 mg PO TID Qty: 90 0RF ibuprofen 600 mg tablet 600 mg PO TID PRN (Reason: pain) Qty: 90 0RF Continued cyclobenzaprine 5 mg tablet 5 mg PO QHS PRN (Reason: muscle spasm) Qty: 28 0RF Patient Comments: 09/29/23 pt reports does not take. FS sumatriptan succinate 50 mg tablet 50 mg PO ONCE buspirone 5 mg tablet 5 mg PO BID ondansetron 4 mg tablet,disintegrating 4 mg PO Q8H PRNQty: 30 0RF Patient Comments: 09/29/23: pt no loinger takes. Last took 08/09/23. FS levothyroxine 125 mcg capsule 137 mcg PO DAILY Discharge Instructions Stand Alone Forms: Anesthesia Discharge Inst., Noel Taylor ([facility]), Isiah Cain Tunnel Release Referrals: Mamadou Joyce MD [ [facility] STAFF PHYSICIAN] - 10/08/23 8:00 am Activity:: Activity as Tolerated Remove Dressings/Wound Care:: 48 hours Shower/Bathe:: 48 hours Diet:: As Tolerated Discharge Orders Discharge Orders: Discharge Order (Routine); Ordered 09/29/23 Ordered By: Johnny Riley DS: Diagnosis Discharge Diagnosis (1) Cubital tunnel syndrome on left: Status: Acute
--- NOTE | 2023-09-29 07:17 | W.PREOPHP ---
Assessment and Plan Assessment and plan (1) Carpal tunnel syndrome, left: Status: Acute Assessment and plan: Preeti is a 38-year-old female who has carpal tunnel syndrome about the left side although atypical. She resolved completely with an injection and therefore I recommend we proceed with carpal tunnel release. I discussed the technical details of carpal tunnel release and that I perform an endoscopic release, but would make a larger, open, incision if necessary for visualization. I discussed the risks of the procedure to include, but not limited to, bleeding, infection, palmar pain, stiffness, damage to nerves, damage to vessels, damage to tendons, weakness, recurrence, and incomplete release. Given these risks, Preeti desires to proceed. History of Present Illness History of Present Illness Chief Complaint: Left Carpal tunnel syndrome Narrative: Preeti is a 38-year-old female whose had ongoing pain, numbness, and stiffness about the left wrist. This she had a carpal tunnel injection which completely resolved her symptoms for short period of time. Therefore, she is here today for carpal tunnel release. Review of Systems All systems reviewed & are unremarkable except as noted in HPI and below PFSH All Active Problems PONV (postoperative nausea and vomiting) (Acute) Nausea (Acute) Postprandial RUQ pain (Acute) Left elbow pain (Acute) Carpal tunnel syndrome, left (Acute) Left wrist pain (Acute) Cubital tunnel syndrome on left (Acute) S/P ECTR: 09/29/2023 Acute anal fissure (Acute) Ovarian cyst (Acute) Left ovarian cyst Back pain (Acute) History of migraine (Acute) Hypothyroid (Acute 07/30/16) Hashimotos Multinodular non-toxic goiter (Acute 05/06/15) Tobacco use disorder (Acute 02/28/14) Medical History History of blood transfusion Pt states she has never had a blood tranfusion Palpitations Pt. states caused by hypothyroidism TMJ tenderness Low back pain Anxiety Multinodular goiter Enlarged thyroid Congenital factor VIII disorder Pt. states she had this worked up and she does not have this. 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) Partner also a carrier Migraine Surgical History S/P laparoscopic cholecystectomy (~07/2023) H/O wisdom tooth extraction Family History Other Diabetes Hyperlipidemia Osteoporosis Personal history of malignant neoplasm Social History Smoking/Tobacco Use Status: Former Tobacco Use Quit Date: 02/04/19 Pack-years: 8 Tobacco: How many years used: 16 Quit status: considering quitting Smoking risk assessment performed?: Yes Alcohol Intake: never Drug use: Never Substance use type: does not use Housing: house Number of Children: 1 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 Date GA/Weeks # Preg Succ Route Wgt Sex Labor Lgth Anesthesia Location Prov Complic 04/16/11 42 No vaginal 3628.739 g Female 6 hrs local [facility] other 08/09/19 40 No vaginal 3770.487 g Female piper Faulkner CNM Delivery Date: 04/16/11 Last Updated by: Tracie Santos CNM episiotomy, stripped membranes due to post dates. Meds Allergies and Home Medications Allergies Allergy/AdvReac Type Severity Reaction Status Date / Time Penicillins Allergy Mild Uncertain Verified 09/29/23 06:29 - very young age with previous reaction Sulfa (Sulfonamide Allergy Mild Uncertain Verified 09/29/23 06:29 Antibiotics) of reaction - very young age w/previous reaction Home Medications Medication Instructions Recorded Confirmed Type levothyroxine 125 mcg capsule 137 mcg PO DAILY 01/19/20 09/29/23 History sumatriptan succinate 50 mg tablet 50 mg PO ONCE 07/20/22 09/29/23 History buspirone 5 mg tablet 5 mg PO BID 08/05/23 09/29/23 History ondansetron 4 mg disintegrating 4 mg PO Q8H PRN #30 tabs 08/05/23 09/28/23 Rx tablet cyclobenzaprine 5 mg tablet 5 mg PO QHS PRN muscle spasm #28 09/08/23 09/28/23 Rx tabs acetaminophen 500 mg tablet 1,000 mg (2 x 500 mg) PO TID #90 09/29/23 Rx tabs hydrocodone 5 mg-acetaminophen 325 1 tab PO Q6H PRN pain #4 tabs 09/29/23 Rx mg tablet ibuprofen 600 mg tablet 600 mg PO TID PRN pain #90 tabs 09/29/23 Rx Exam Const General: cooperative, healthy appearing, comfortable and no acute distress Resp Effort & Inspection: normal respiratory effort Auscultation: clear to auscultation bilaterally Cardio Rate: regular rate Rhythm: regular rhythm Results Last Vital Signs Temp 36.5 C 09/29/23 06:23 Pulse 80 09/29/23 06:23 Resp 16 09/29/23 06:23 BP 119/81 09/29/23 06:23 Pulse Ox 98 09/29/23 06:23
[2023-09-29] MEDS: ceFAZolin 2 GM/50 ML BAG IVPB (07:24)
[2023-09-29] MEDS: Sodium Bicarbonate 50 MEQ/50 ML VIAL (07:42)
[2023-09-29] MEDS: Lidocaine 1% Multi-Dose W/EPI 1/100,000 50 ML VIAL (07:42)
[2023-09-29 07:51] VITALS: BP 113/67; PULSE 84; RESP 16; TEMP 36.2; O2SAT 97
--- NOTE | 2023-09-29 07:51 | W.PM.OP ---
Date of service: 09/29/23 Time of Service: 07:30 Operative Note Operative Note PRE-OP DIAGNOSIS: Left Carpal Tunnel Syndrome POST-OP DIAGNOSIS: same PROCEDURE: Left Endoscopic Carpal Tunnel Release SURGEON: Mamadou Joyce ANESTHESIA TYPE: General:No Airway Refer to Anesthesia Record ESTIMATED BLOOD LOSS: 0 PATHOLOGY: none sent TOURNIQUET TIME: 4 COMPLICATIONS: None Patient was transported to: same day Patient's condition: stable Indications: I have seen Preeti in clinic for symptoms of carpal tunnel syndrome. The numbness, tingling, and pain limited function. Clinical exam findings along with a confirmatory carpal tunnel injection confirmed the diagnosis of carpal tunnel syndrome. Nonoperative measures such as bracing, time, activity modifications had been tried but disability and pain persisted. I discussed carpal tunnel release with the patient. I reviewed the risks of the procedure to include, but not limited to, bleeding, infection, pain, stiffness, incomplete release, damage to nerves or vessels, persistent numbness, recurrence. Despite these risks, the patient elected to proceed. Findings: There was tightened carpal tunnel. This was dilated and released successfully with the endoscopic with increased space within the tunnel. The antebrachial fascia was released proximally freeing the median nerve at the wrist. Procedure Description: Preeti was greeted in the preoperative holding area where the correct side was identified and marked. The consent was reviewed with the patient and signed. The history and physical was updated. All questions were answered. She was taken back to the operating room. The patient was placed into the supine position on the operating room table with the left arm on an arm board. A nonsterile tourniquet was placed high onto the arm. All bony prominences were well padded. Prophylactic antibiotics in the form of Cefazolin were administered. The left arm was then prepped with Chloraprep and draped in a standard fashion with stockinette and extremity drape. A timeout to confirm correct identity, side and site, procedure, allergies, anesthesia, and medical concerns was performed. The surgical site was marked in the volar wrist creases in line with the radial border of the fourth ray. This area was anesthetized with approximately 6cc of 1% Lidocaine. The limb was then exsanguinated with an Esmarch. The skin was incised with a 15 blade, approximately 1cm. The skin only was cut and the deeper tissue was dissected bluntly with a tenotomy scissor, avoiding passing nerve and venous structures. The fascia was penetrated and opened bluntly. A two-prong skin hook was placed under this proximal fascial edge. A series of hamate finders were used to identify and dilate the carpal tunnel. Synovial elevator was used to free synovial attachments to the underside of the transverse carpal ligament. My thumb was kept in the palm to srini the distal extent of the carpal tunnel and correctly position the hand. The Microaire endoscope was inserted without difficulty and without resistance. Excellent visualization showed horizontally running fibers of the transverse carpal ligament (TCL). The distal extent of the TCL was visualized and the end of the scope palpated with the thumb. The blade was elevated and withdrawn from distal to proximal. The TCL was split into two flaps. The endoscope was reinserted to confirm complete release and any remnant ligament was incised. The scope was withdrawn and the proximal aspect of the carpal tunnel was grossly inspected and appeared release with the median nerve visible. The antebrachial fascia at the level of the wrist was then freed from the overlying skin and then the underlying median nerve with blunt dissection. This was transected longitudinally for about 3cm proximal to the wrist incision. The wound was then irrigated with easy flow of irrigant distally and proximally. The incision was closed with a single 4-0 Nylon suture. The wound was dressed with Xeroform, Gauze, Kerlix and . The tourniquet was deflated with the initial dressing and held with some pressure. Blood flow returned easily to all digits with capillary refill less than 2 seconds. The patient tolerated the procedure well and was returned to the Same Day Surgery area in a stable condition suffering no known complication.
[2023-09-29] MEDS: LORazepam 2 MG/ML VIAL 0.5 MG IVP (08:12)
[2023-09-29] MEDS: Normal Saline Flush 10 ML SYR IV (08:13)
--- NOTE | 2023-09-29 08:24 | W.ANESPOSTOP ---
Postoperative Evaluation Date, Time and Location Date Performed: 09/29/23 Time Performed: 08:24 Patient Location: Day Surgery Unit Vital Signs Most Recent Imported Vital Signs: Most Recent Vital Signs Temp Pulse Resp BP Pulse Ox 36.5 C 80 16 119/81 98 09/29/23 06:23 09/29/23 06:23 09/29/23 06:23 09/29/23 06:23 09/29/23 06:23 Assessment Mental Status: Awake (Alert & Oriented to Patient Baseline) Airway and Respiratory Function: Patent airway with normal (patient baseline) respiratory exam Cardiovascular Function: Hemodynamically Stable Hydration Status: Adequately Hydrated Nausea & Vomiting: No Nausea or Vomiting Pain: Pt. Denies Any Pain Peripheral Nerve Block: Patient did not receive a nerve block Postoperative Comments:: Woke up nauseated again. Lorazapam ordered with good effect.
[2023-09-29 08:26] VITALS: BP 113/90; PULSE 73; RESP 16; TEMP 36; O2SAT 100
== END 2023-09-29 08:52 | disposition home or self-care (01) ==
PROVIDERS: PCP Nurse Practitioner Family; Visit Provider Student in an Organized Health Care Education/Training Program
PROC: 01N54ZZ Release Median Nerve, Percutaneous Endoscopic Approach (ICD-10-PCS; CPT 29848; principal; 2023-09-29 07:30)
DX: G56.02 Carpal tunnel syndrome, left upper limb (principal); G56.22 Lesion of ulnar nerve, left upper limb; E03.9 Hypothyroidism, unspecified; F17.200 Nicotine dependence, unspecified, uncomplicated
CPT/HCPCS: 29848; 81025; J0690; J1100; J1885; J2004; J2060; J2405; J2704

== ENCOUNTER 2024-01-14 14:59 | Outpatient (REF) | payer OTHER, SELFPAY ==
--- NOTE | 2024-01-14 12:15 | PAPFT_PTH ---
PATIENT: Preeti Campbell LOC: [facility]#:[id number] AGE/SX: 38/F ROOM: RE01/14/[address]: Deb Haas : 1985 BED: DIS: 01/14/2024 SPEC #: [id number] RECD: 01/14/24 18:35 STATUS: LACY REQ #: [id number] NOÉ: 01/14/24 12:[address]: Deb Haas DEPT: [facility] Cytology RECD BY: Karen Daniel Tissues: 1 - CX/ENDOCX FOR PAP SMEARS Procedures: PAP THIN PREP/UVM Screening HPV DNA PROBE Comments: [id number] (HPV 16 & 18/45)
--- OUTSIDE RECORDS SUMMARY | 2024-01-14 15:01 | XMS_ITS | Encounter Summary ---
[facility] Organization [facility] Address [facility] [place] [address] Care Team Providers Care Sorting Machine Attendant Name Role Phone Stefani Banda APRN Primary Care Provider [phone] Encounter Details Date Type Department Care Team (Latest Contact Info) Description 12/16/2010 9:23 AM EDT - 12/16/2010 11:59 PM EDT Hospital Encounter [place] [id number] CLINIC, Pedro Ramos MD [facility] [place]STETR[place] [address] Discharge Disposition: Home Social History Tobacco Use Types Packs/Day Years Used Date Smoking Tobacco: Former Cigarettes Q uit: 12/11/2010 Alcohol Use Standard Drinks/Week Comments No 0 (1 standard drink = 0.6 oz pur e alcohol) Comments Yes Sex and Gender Information Value Date Recorded Sex Assigned at Not on file Gender Identity Not on file Sexual Orientation Not on file documented as of this encounter Medications at Time of Discharge Medication Sig Dispensed Refills Start Date End Date acetaminophen (TYLENOL) 80 mg chewable tablet Take 80 mg by mouth every 4 hours as needed. Reported on 05/01/2016 vitamin 27 & [id number] 60 mg (Iron)-1 mg tablet Take 1 tablet by mouth daily. 10/02/2014 documented as of this encounter Plan of Treatment Not on file documented as of this encounter Procedures Procedure Name Priority Date/Time Associated Diagnosis Comments US OB DETAILED MORPHOLOGY Routine 12/16/2010 10:42 AM EDT documented in this encounter Results * US OB TARGETED MORPHOLOGY (12/16/2010 10:42 AM EDT) Anatomical Region Laterality Modality Pelvis, Abdomen Ultrasound 12/16/2010 10:4 2 AM EDT Narrative 12/16/2010 10:44 AM EDT ? OBSTETRICS REPORT ? (Signed Final 12/16/2010 10:40 am) Patient Info ID: ?[id number] ?: ??[birth year] (25 yrs) Name: ?PREETI Cook ?Visit Date: 12/16/2010 10:01 am ?JIA Performed By Performed By: ?? LILY Vargas ??Rachna Attending: ?Michael GUTIERREZ E ??Malena Referred By: ?[facility] Accession#: ? [id number] Procedures [facility] - Targeted Morphology - Genetics - ? [id number] Indications Patient and FOB CF carriers Evaluation Num Of Fetuses: ?1 Heart Rate: ??135 ? bpm Cardiac Activity: ??Observed, normal rhythm Presentation: ?Breech Placenta: ?Posterior Fundal P. Cord ?Within Normal Limits Insertion: Amniotic Fluid RODNEY FV: ?Normal -------- Biometry -------- BPD: ?53.4 ??mm ?G. Age: ?? 22w 2d HC: ?213.9 ??mm ?G. Age: ?? 23w 3d AC: ?186.7 ??mm ?G. Age: ?? 23w 3d FL: ? 43.4 ??mm ?G. Age: ?? 24w 2d HUM: ?39.3 ??mm ?G. Age: ?? 24w 0d CER: ?22.9 ??mm ?G. Age: ?? 21w 3d CI: ? 64.46 ??% ? 70 - 86 FL/HC: ? 20.3 ??% ? 18.7 - 20.9 HC/AC: ? 1.15 ?1.05 - 1.21 FL/BPD: ?81.3 ??% ? 71 - 87 FL/AC: ? 23.2 ??% ? 20 - 24 Est. FW: ? 618 ??gm ?1 lb 6 oz Gestational Age LMP: ? 25w 0d ?Date: ??06/24/10 ? MARA: ?? 03/31/11 Clinical MARA: ??23w 6d ?MARA: ?? 04/08/11 U/S Today: ? 23w 3d ?MARA: ?? 04/11/11 Best: ?23w 6d ?? Det. By: ??Early ?MARA: ?? 04/08/11 ? Ultrasound ? (09/08/10) Targeted Anatomy Central Nervous System Calvarium: ?Within Normal Limits Intracranial: ? Within Normal Limits Lat. Ventricles: ?Within Normal Limits Cerebellum: ? Within Normal Limits Choroid Plexus: ? Within Normal Limits Cisterna Magna: ? Within Normal Limits Spine Cervical: ? Visualized Thoracic: ? Visualized Lumbar: ? Visualized Sacral: ? Visualized Head/Neck Face: ? Within Normal Limits Nuchal Fold: ?Not evaluated at this gestational age Thorax Four Chamber: ? Within Normal Limits Cardiac Motion: ? Normal Rhythm R Outflow Tract: ?Visualized L Outflow Tract: ?Visualized Cardiac [place]: ? Visualized Diaphragm: ?Visualized Abdomen Ventral Wall: ? Visualized Stomach: ?Visualized Lt Kidney: ?Visualized Rt Kidney: ?Visualized Bladder: ?Visualized Extremities Lt Humerus: ? Within Nomal Limits Rt Humerus: ? Within Normal Limits Lt Forearm: ? Within Normal Limits Rt Forearm: ? Within Normal Limits Lt Hand: ?Within Normal Limits Rt Hand: ?Within Normal Limits Lt Femur: ? Within Normal Limits Rt Femur: ? Within Normal Limits Lt Lower Leg: ? Within Normal Limits Rt Lower Leg: ? Within Normal Limits Lt Foot: ?Visualized Rt Foot: ?Visualized Other Umbilical Cord: ? 3 vessel cord Cord Insertion: ? WIthin Normal Limits Cervix Uterus Adnexa Left Ovary: ?? Visualized Right Ovary: ??Visualized Impression 2nd Trimester - Targeted Morphology- Summary Single intrauterine with a gestational age of 23w 6d based on early ultrasound. Composite age based on the current ultrasound alone is 23w 3d. Amniotic fluid volume is Normal. Current growth parameters are consistent indicating normal growth. Detailed anatomic evaluation was performed and no structural abnormalities are noted. I viewed the images and agree with the above interpretation. Thank you for allowing us to participate in the care of PREETI CAMPBELL. Please do not hesitate to call if you have any questions. ? Pedro Rodriguez MD Electronically Signed Final Report ?? 12/16/2010 10:40 am Procedure Note Pedro Rodriguez MD - 12/16/2010 OBSTETRICS REPORT (Signed Final 12/16/2010 10:40 am) Patient Info ID: [id number] : [birth year] (25 yrs) Name: PREETI Cook Visit Date: 12/16/2010 10:01 am CHESEBROGAY Performed By Performed By: LILY Vargas Attending: Pedro Rodriguez MD Referred By: [facility] Procedures [facility] - Targeted Morphology - Genetics - [id number] Indications Patient and FOB CF carriers Evaluation Num Of Fetuses: 1 Heart Rate: 135 bpm Cardiac Activity: Observed, normal rhythm Presentation: Breech Placenta: Posterior Fundal P. Cord Within Normal Limits Insertion: Amniotic Fluid RODNEY FV: Normal -------- Biometry -------- BPD: 53.4 mm G. Age: 22w 2d HC: 213.9 mm G. Age: 23w 3d AC: 186.7 mm G. Age: 23w 3d FL: 43.4 mm G. Age: 24w 2d HUM: 39.3 mm G. Age: 24w 0d CER: 22.9 mm G. Age: 21w 3d CI: 64.46 % 70 - 86 FL/HC: 20.3 % 18.7 - 20.9 HC/AC: 1.15 1.05 - 1.21 FL/BPD: 81.3 % 71 - 87 FL/AC: 23.2 % 20 - 24 Est. FW: 618 gm 1 lb 6 oz Gestational Age LMP: 25w 0d Date: 06/24/10 MARA: 03/31/11 Clinical MARA: 23w 6d MARA: 04/08/11 U/S Today: 23w 3d MARA: 04/11/11 Best: 23w 6d Det. By: Early MARA: 04/08/11 Ultrasound (09/08/10) Targeted Anatomy Central Nervous System Calvarium: Within Normal Limits Intracranial: Within Normal Limits Lat. Ventricles: Within Normal Limits Cerebellum: Within Normal Limits Choroid Plexus: Within Normal Limits Cisterna Magna: Within Normal Limits Spine Cervical: Visualized Thoracic: Visualized Lumbar: Visualized Sacral: Visualized Head/Neck Face: Within Normal Limits Nuchal Fold: Not evaluated at this gestational age Thorax Four Chamber: Within Normal Limits Cardiac Motion: Normal Rhythm R Outflow Tract: Visualized L Outflow Tract: Visualized Cardiac [place]: Visualized Diaphragm: Visualized Abdomen Ventral Wall: Visualized Stomach: Visualized Lt Kidney: Visualized Rt Kidney: Visualized Bladder: Visualized Extremities Lt Humerus: Within Nomal Limits Rt Humerus: Within Normal Limits Lt Forearm: Within Normal Limits Rt Forearm: Within Normal Limits Lt Hand: Within Normal Limits Rt Hand: Within Normal Limits Lt Femur: Within Normal Limits Rt Femur: Within Normal Limits Lt Lower Leg: Within Normal Limits Rt Lower Leg: Within Normal Limits Lt Foot: Visualized Rt Foot: Visualized Other Umbilical Cord: 3 vessel cord Cord Insertion: WIthin Normal Limits Cervix Uterus Adnexa Left Ovary: Visualized Right Ovary: Visualized Impression 2nd Trimester - Targeted Morphology- Summary Single intrauterine with a gestational age of 23w 6d based on early ultrasound. Composite age based on the current ultrasound alone is 23w 3d. Amniotic fluid volume is Normal. Current growth parameters are consistent indicating normal growth. Detailed anatomic evaluation was performed and no structural abnormalities are noted. I viewed the images and agree with the above interpretation. Thank you for allowing us to participate in the care of PREETI CAMPBELL. Please do not hesitate to call if you have any questions. Pedro Rodriguez MD Electronically Signed Final Report 12/16/2010 10:40 am Martha Duncan CNM IMG US OB ORDERABLES documented in this encounter Visit Diagnoses Not on filedocumented in this encounter Care Teams Sorting Machine Attendant Relationship Specialty Start Date End Date Stefani Banda APRN [facility] [address] [place] [address] PCP - General 12/09/10 01/11/19 documented as of this encounter
--- OUTSIDE RECORDS SUMMARY | 2024-01-14 15:01 | XMS_ITS | Encounter Summary ---
[place] [address] Care Team Providers Care Electric Switch Tester Name Role Phone Stefani Banda TECHNOLOGY DEVELOPMENT INTERN Primary Care Provider [phone]- [phone] Reason for Visit * Reason Onset Date Comments Prior Authorization 10/03/2014 Encounter Details Date Type Department Care Team (Late st Contact Info) Description 10/03/2014 Telephone [place] [phone] Tom Valladares Prior Authorization Social History Tobacco Use Types Packs/Day Years Used Date Smoking Tobacco: Former Cigarettes Q uit: 08/02/2014 Smokeless Tobacco: Never Alcohol Use Standard Drinks/Week Comments No 0 (1 standard drink = 0.6 oz pur e alcohol) Comments Yes Sex and Gender Information Value Date Recorded Sex Assigned at Not on file Gender Identity Not on file Sexual Orientation Not on file documented as of this encounter Miscellaneous Notes * Telephone Encounter - Tom Stout - 10/03/2014 9:02 AM EDT Medication Prior Authorization COMI Medication name/dose/directions: SYNTHROID 112MCG, TAKE 1 TABLET BY PO DAILY. Rationale for request: hypothyroidism Health plan: [place] MEDICAID Authorizing denial management representative name: TOM Faxed to health plan on: 10/03/14 Health plan decision: APPROVED Quantity approved: Authorization number: [id number] Start date: 10/03/14 End date: 10/04/15 Patient notified? NO Pharmacy notified? YES documented in this encounter Plan of Treatment Not on file documented as of this encounter Visit Diagnoses Not on filedocumented in this encounter Care Teams Electric Switch Tester Relationship Specialty Start Date End Date Stefani Banda APRN [facility] [address] [place] [address] PCP - General 12/09/10 01/11/19 documented as of this encounter
--- OUTSIDE RECORDS SUMMARY | 2024-01-14 15:01 | XMS_ITS | Encounter Summary ---
Author Organization [facility] Address [facility] [place] [address] Care Team Providers Care Automobile Sales Consultant Name Role Phone Deb Haas APRN Primary Care Provider Reason for Visit * Consultation (Routine) - Closed Specialty Diagnoses / Procedures Referred By Contac t Referred To Contact Hematology and Oncology Diagnoses Factor VIII deficiency Deb Haas APRN [address] [place] [address] [facility] [address] [place] [address] Referral ID Status Reason Start Date Expiration Date V isits Requested Visits Authorized [id number] Closed Consult, Test & Treat PCP Updated and/or Approved 06/25/2022 06/25/2023 12 12 Encounter Details Date Type Department Care Team (Latest Contact Info) Description 10/13/2022 10:00 AM EDT TH Visit (TeleHealth) Hematology [place] [address] Guillermina Martinez MD [facility] [address] HEMATOLOGY [place] [address] Yamileth Duggan, fiberglass tube molder history of stroke; Family history of factor V Leiden mutation; Family history of pulmonary embolism Social History Tobacco Use Types Packs/Day Years Used Date Smoking Tobacco: Former Cigarettes Q uit: 08/02/2014 Smokeless Tobacco: Never Alcohol Use Standard Drinks/Week Comments No 0 (1 standard drink = 0.6 oz pur e alcohol) Sex and Gender Information Value Date Recorded Sex Assigned at Not on file Gender Identity Not on file Sexual Orientation Not on file documented as of this encounter Progress Notes * Guillermina Martinez MD - 10/13/2022 10:00 AM EDT Images from the original note were not included. THROMBOSIS CONSULTATION DATE OF VISIT 10/13/2022 Patient Preeti Campbell 1985 REFERRING PHYSICIAN Deb Haas APRN PRIMARY CARE PHYSICIAN Deb Haas APRN REASON FOR CONSULTATION Evaluation of thrombophilia in the setting of family history of pulmonary embolism, stroke Due to COVID-19 pandemic this office visit was converted to tele visit. Patient consents to this tele visit and understands that the visit may be billed, similar to a clinic office visit. HISTORY OF THE PRESENT ILLNESS Preeti Campbell is a 37 y.o. woman with family history of stroke, pulmonary embolism, who is seen in consultation at the request of Deb Haas APRN for evaluation of inherited thrombophilia. The referral was sent in for evaluation of factor 8 deficiency which is a bleeding disorder. I confirmed with patient. She stated that there is a family history of factor V Leiden mutation (not factor 8 abnormality) .The history is obtained from the patient, and I have reviewed extensive medical records provided by the referring physician and located in the electronic medical record to fill in gaps in the patient's recollection of events, treatmentsand outcomes. Preeti has no personal history of arterial nor venous thromboembolism. She was referred to our Thrombosis Clinic for evaluation of inherited thrombophilia in context of positive family history of thrombosis. Her cousin on paternal side developed stroke in the late 30s and was diagnosed with factor V Leidenmutation. It was not clear whether this was an embolic event due to PFO + DVT or not. She does not know the details of the event. Her father also had a stroke in his early 50s, but he does have clinical risk factors for arterial disease including hyperlipidemia, being a smoker. Her paternal aunt of pulmonary embolism in her 50s, unclear whether this was provoked or unprovoked. Her mother has remote history of lung cancer in remission now (previous smoker). THROMBOSIS RISK FACTORS Risk Factor Comment Obesity (BMI >30 kg/m2) V/A COVID-19 (<3-6 months) V/A Diabetes V/A Current smoker V/A Estrogen or estrogen/progestin V/A V/A Inflammatory disease V/A Recent surgery (<3 months) V Recent hospitalization (<3 mo) V Recent travel (<3 mo) V Period of immobility V Documented thrombophilia V Accident/Trauma V/A Cancer or treatment for cancer V/A Blood transfusion V/A Central venous catheter V Family history (1st degree) V/A Varicose veins/venous insuff. V Hypertension A Hyperlipidemia A Vascular disease A Atrial fibrllation A V: Risk factor for venous thrombosis; A: Risk factor for arterial thrombosis PAST MEDICAL HISTORY Paramjit Hypothyroidism Migriane Anxiety OPERATIVE PROCEDURES adenoidectomy OBSTETRIC HISTORY Children 11 and 3 years (2 girls) 3-4 years on OCP for contraception. Currently not on OCP MEDICATIONS Current Outpatient Medications on File Prior to Visit Medication Sig Dispense Refill vit/iron fum/folic ac ( 1+1 ORAL) Take by mouth. levothyroxine (SYNTHROID) 125 mcg Tablet Take 125 mcg by mouth daily. acetaminophen (TYLENOL) 80 mg chewable tablet Take 80 mg by mouth every 4 hours as needed. Reportedon 05/01/2016 No current facility-administered medications on file prior to visit. 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 tobacco No alcohol REVIEW OF SYSTEMS Fevers/chills/sweats No Recent infections No Unexplained weight loss No Headache/lightheadedness/syncope No Sinus pain/pressure No Oral sores/lesions/bleeding No Sore throat/dysphagia No Nosebleeds No Cough/SOB/chest pain/heart racing No Nausea/vomiting/dyspepsia No Abdominal pain No Diarrhea/constipation No Urinary pain, burning, incontinence No Hematuria No Vaginal discharge/bleeding No Skin rashes/ulcers No Back/joint pain/swelling No Leg swelling/pain/redness No Bruising/petechiae/bleeding/melena No Sensory/motor No Polydipsia/polyuria/heat/cold intol No Lumps/bumps/swollen glands No Other Negative except as above PHYSICAL EXAMINATION Height and weight - 180 lbs Height 5' 7 1/2 i LABORATORY STUDIES None RADIOGRAPHIC STUDIES None IMPRESSION Preeti Campbell is a 37 y.o. woman with family history of both arterial thrombosis (stroke) and pulmonary embolism who was referred for evaluation of thrombophilia. Although the referral was for evaluation of factor 8 deficiency (bleeding disorder), she does not appear to have any history of bleeding disorder, and per patient, there is a family history of factorV Leiden mutation and hx of both arterial and venous thromboembolism. We discussed the implication of having factor V Leiden mutation. I told her that factor V Leiden iscommon affecting 5% or more of the population (about 50 million people worldwide). Heterozygous factor V Leiden has a 5-fold increased risk for developing a first episode of VTE over the general population (i.e., from 1 in 1000 per year to 1 in 200 per year in middle age). I told her thatsome patients with factor V Leiden would not develop VTE in their lifetime if they don't have otheradditive risk factors such as , obesity, hormone use, immobility, long distance travel, diabetes, cancer, surgery, trauma and even blood type (type non-O > O). I reviewed the fact that while factor V Leiden is associated with an increased risk for venous thromboembolism, it does not appear to contribute to increased risk for arterial thrombosis under most circumstances. However, if her cousin developed venous thromboembolism first and then embolized via PFO causing stroke, then the presence of factor V Leiden mutation might contribute to the event. Otherwise factor V Leiden mutation is not associated with increased risk of atherosclerosis. Her aunt of PE but we don't know whether she was a carrier of factor V Leiden mutation or not. I told Preeti that I generally do not recommend a routine screening of factor V Leiden mutation inasymptomatic patient, anna when it won't change any immediate management. The testing itself may notcover by insurance. I explained to her that it is important to modify lifestyle risk factor rather than focus on the genetic information that cannot be changed. We discussed that there is no role for aspirin or anticoagulant to take on daily basis for primary VTE prophylaxis in asymptomatic patient who carries factor V Leiden mutation. Currently Preeti is not on estrogen containing oral contraception. Even if she wants to go back onestrogen combined OCP, it is not absolute contraindicated, but we would recommend alternative contraceptive that is not associated with thrombosis risk e.g. Mirena IUD, copper IUD or progesterone only pill first. If estrogen combined OCP is needed, then I would recommend to select one with lowest dose of estrogen and use the the lowest risk of progesterone component e.g. levonorgestrel or norethindrone. I reviewed other preventative strategies for VTE including maintain good weight/activity, wearing compression during travel, consider pharmacologic thromboprophylaxis during high risk period such as trauma, surgery, period of immobility, staying up to date with cancer screening. We also talked about preventative strategies to reduce cardiovascular events such as stroke, PA. She should have a routine check of blood pressure, cholesterol, glucose level. At the end of our visit, she opted not to proceed with the testing for factor V Leiden mutation butfocus on preventative strategies. I will mail reading material about factor V Leiden mutation to her home address. PLAN No testing for factor V Leiden mutation 2. Will mail reading material about factor V Leiden mutation to patient 3. Discussed preventative strategies for VTE as well as arterial disease e.g. stroke/PA Preeti Campbell had the opportunity to ask questions and indicated that all her questions were answered to her satisfaction. She knows that she can call our office if she has any new concerns, questions. Guillermina Martinez MD Total time of care including chart review, tele visit, documentation: 45 mins ( > 50 % time spent with patient) documented in this encounter Plan of Treatment Not on file documented as of this encounter Visit Diagnoses Diagnosis Family history of stroke Family history of stroke (cerebrovascular) Family history of factor V Leiden mutation Family history of other blood disorders Family history of pulmonary embolism Family history of other cardiovascular diseases documented in this encounter Care Teams Automobile Sales Consultant Relationship Specialty Start Date End Date Deb Haas [place] [address] PCP - General Family Medicine 06/25/22 documented as of this encounter
--- OUTSIDE RECORDS SUMMARY | 2024-01-14 15:01 | XMS_ITS | Encounter Summary ---
[place] [address] Care Team Providers Care Veterinary Physiologist Name Role Phone Deb Haas APRN Primary Care Provider [phone] Reason for Referral * Consultation (Routine) - Closed Specialty Diagnoses / Procedures Referred By Contkierra t Referred To Contact Hematology and Oncology Diagnoses Factor VIII deficiency Deb Haas APRN [address] [place] [address] [facility] [address] [place] [address] Referral ID Status Reason Start Date Expiration Date V isits Requested Visits Authorized [id number] Closed Consult, Test & Treat PCP Updated and/or Approved 06/25/2022 06/25/2023 12 12 Encounter Details Date Type Department Care Team (Latest Contact Info) Description 06/25/2022 Transcribe Orders eDH Incoming Referrals [phone] Deb Haas APRN [address] [place] [address] Factor VIII deficiency Social History Tobacco Use Types Packs/Day Years Used Date Smoking Tobacco: Former Cigarettes Q uit: 08/02/2014 Smokeless Tobacco: Never Alcohol Use Standard Drinks/Week Comments No 0 (1 standard drink = 0.6 oz pur e alcohol) Sex and Gender Information Value Date Recorded Sex Assigned at Not on file Gender Identity Not on file Sexual Orientation Not on file documented as of this encounter Plan of Treatment Scheduled Referrals Name Type Priority Associated Diagnoses Order Schedule Referral to Hematology and Oncology Outpatient Referral Routine Factor VIII deficiency Ordered: 06/25/2022 documented as of this encounter Visit Diagnoses Diagnosis 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
--- OUTSIDE RECORDS SUMMARY | 2024-01-14 15:01 | XMS_ITS | Encounter Summary ---
Author Organization [facility] [place] [address] Care Team Providers Care Professional Golf Tournament Player Name Role Phone Kelley Martin APRN Primary Care Provider Reason for Visit * Reason Onset Date Comments Medical Care Coordination 06/05/2019 Encounter Details Date Type Department Care Team (Late st Contact Info) Description 06/05/2019 Telephone Obstetrics [place] [phone] [facility] [place] [address] Medical Care Coordination Social History Tobacco Use Types Packs/Day Years [...] encounter Miscellaneous Notes * Telephone Encounter - Prabhjot Villa [facility] - 06/05/2019 10:26 AM EDT Genetic Counseling Telephone Note Preeti Campbell is a 34 y.o. female currently at 31w3d gestation. 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 At her recent genetic counseling visit, Preeti shared that their first child had a sweat test about a month after , and she found the wait distressing. I reviewed this with the Medical Genetics team, who advised that DNA testing is more reliable thansweat testing and is standard of care when the parents are known carriers. I contacted Preeti's tax collection coordinator, Martha Duncan, with this information. She is able to help facilitate cystic fibrosis testing. I sent her an email with information about [facility] familial mutation testing (test ID: [id number]). Whole blood is the preferred specimen, but CFTR gene testing is available on a dried blood spot specimen. I included the ???Required Patient Information?? form with the parents' information filled in; the patient information section will need to be completed after the baby is born. documented in this encounter Plan of Treatment Not on file documented as of this encounter Visit Diagnoses Not on filedocumented in this encounter Care Teams Professional Golf Tournament Player Relationship Specialty Start Date End Date Kelley Martin APRN [address] [place] [address] PCP - General Family Medicine 01/12/19 06/24/22 documented as of this encounter
--- OUTSIDE RECORDS SUMMARY | 2024-01-14 15:01 | XMS_ITS | Encounter Summary ---
Author Organization [facility] [place] [address] Care Team Providers Care Machinery Rigger Name Role Phone Stefani Banda APRN Primary Care Provider [phone]- [phone] Reason for Visit * Reason Comments Medication Refill Encounter Details Date Type Department Care Team (Late st Contact Info) Description 09/22/2015 Refill Endocr[place] [address] Calvin Cesar MD [facility] [place] [address] Other specified hypothyroidism Social History Tobacco Use Types Packs/Day Years [...] as of this encounter Visit Diagnoses Diagnosis Other specified hypothyroidism documented in this encounter Care Teams Machinery Rigger Relationship Specialty Start Date End Date Stefani Banda APRN [facility] [address] [place], [place] [id number] PCP - General 12/09/10 01/11/19 documented as of this encounter
--- OUTSIDE RECORDS SUMMARY | 2024-01-14 15:01 | XMS_ITS | Encounter Summary ---
Author Organization [facility] [place] [address] Care Team Providers Care Woodwork Salvage Inspector Name Role Phone Stefani Banda APRN Primary Care Provider [phone]- [phone] Reason for Visit * Reason Comments Hypothyroidism Encounter Details Date Type Department Care Team (Late st Contact Info) Description 05/01/2016 10:30 AM EST Office [place] [address] Lloyd Tineo MD [facility] [place] [address] Paramjit's thyroiditis Social History Tobacco Use Types Packs/Day Years [...] on file documented as of this encounter Last Filed Vital Signs Vital Sign Reading Time Taken Comments Blood Pressure 132/81 05/01/2016 10:48 AM EST Pulse 81 05/01/2016 10:48 AM EST Temperature - - Respiratory Rate - - Oxygen Saturation - - Inhaled Oxygen Concentration - - Weight 88.1 kg (194 lb 3.2 oz) 05/01/2016 10:48 AM EST Height 170.2 cm (5' 7) 05/01/2016 10:48 AM EST Body Mass Index 30.42 05/01/2016 10:48 AM EST documented in this encounter Progress Notes * Lloyd Tineo MD - 05/01/2016 10:30 AM EST Endocrinology Follow Up Note Reason for Evaluation: Hypothyroidism fup ?? HPI: This is a 30 y/o female who presents to the clinic today for follow up of hypothyroidism. Past medical history is significant for cystic fibrosis trait. ?? Interim History Preeti has been doing well since last visit in 11/2014. She was first seen for multinodular goiter and hypothyroidism and was started on Synthroid 112 mcg daily in September 2014. She tolerates it well and takes the medication correctly. The TFT was checked in 01/2016 as her PCP called for a unilateralswelling. The TFT were reportedly normal. Patient also stopped her OCP in 01/2016 trying to conceive. ?? Fatigue - No Weight gain - No Intolerance to cold - No. Only feet have been cold Dry skin - Yes constipation - No Menstrual irregularities - Restarted again in 03/2016, stopped OCP in 01/2016. Muscle and joint pain - No Sleep disturbances - No Forgetfulness - It's been going on. Globus sensation - No Difficulty swallowing - No Difficulty breathing - No Hoarseness or voice change - No ?? Background history ?? Patient noticed a lump on the left side of her neck in July 2014. It was nontender and easily palpatable. she went to the ED, and was told that was a thyroid nodule. She went to see her PCP, who ordered an ultrasound of thyroid, which showed heterogeneous nodular appearance of both thyroid lobes, which is consistent with multinodular goiter. The TFT was checked by the primary care recently. TSH was 10.49 and free T4 was 0.88 in August 2014. Patient complained about constipation, significant coldintolerance, fatigue, hair thinning, dry skin and a weight gain of 4 pounds in September 2014. She denies swelling, change in her voice or vision, change in her menses. She has no significant family history of thyroid disease or autoimmune disease. Denies radiation exposure in the neck area. Patient is concerned about the lump in her neck. ?? Past Medical History Past Medical History Diagnosis Date ??? Cystic fibrosis gene carrier Past Surgical History No past surgical history on file. Current Medications ??? ibuprofen (ADVIL;MOTRIN) 400 mg Tablet ??? SYNTHROID 112 mcg Tablet ??? acetaminophen (TYLENOL) 80 mg chewable tablet Review of Systems 12 point review of system was negative except for stated above in history of present illness. Physical Examination BP 132/81 Pulse 81 Ht 170.2 cm (5' 7) Wt 88.1 kg (194 lb 3.2 oz) BMI 30.42 kg/m2 Appearance: Alert awake oriented ??3, not in acute distress HEENT: Pupils equal round reactive to light Oral: throat clear Neck: Thyroid exam normal, no thyroid nodule appreciated. CVS: Regular rate and rhythm Lungs: CTA B Abd: Soft, NT Ext: no pitting edema. No hand tremors. Neuro: normal reflexes Psych: normal affect Skin: no rash Labs See HPI Assessment Paramjit's thyroiditis / Hypothyroidism Preeti has been doing well on Synthroid 112 mcg since 2014. She tolerates it well and takes the medication correctly. The TFT normalized 2 months after taking Synthroid. Her symptoms significantly improved on Synthroid. She seems to be euthyroid today. Her TFT was recently done in OSH and was reportedly normal. I'll obtain the records. We will continue her Synthroid at the current dose. Of note,she stopped taking OCP trying to conceive. In that case her pre- TSH goal is 0.1-2.5. She was instructed to call endocrinology clinic if she is . Recommendations - Obtain her TFT in Jan 2016 from [facility] in [facility] - Her pre-/first trimester TSH goal is 0.1-2.5. - Continue Synthroid 112 ??g every morning. - Check TFT annually if not . Follow with endo or PCP if she is - Return to PCP for care now Plan of care has been discussed with attending physician, Dr. Arsenio MD, Department of Endocrinology Lloyd Tineo MD Endocrine Fellow * Calvin Cesar MD - 05/01/2016 10:30 AM EST I reviewed this patient with Dr Tineo . I reviewed the de souza portions of the history and physical exam, and reviewed pertinent lab data. I was involved in all medical decision making and agree with thisplan. documented in this encounter Plan of Treatment Not on file documented as of this encounter Visit Diagnoses Diagnosis Paramjit's thyroiditis Chronic lymphocytic thyroiditis documented in this encounter Care Teams Woodwork Salvage Inspector Relationship Specialty Start Date End Date Stefani Banda APRN [facility] [address] [place] [address] PCP - General 12/09/10 01/11/19 documented as of this encounter
--- OUTSIDE RECORDS SUMMARY | 2024-01-14 15:01 | XMS_ITS | Encounter Summary ---
Author Organization [facility] Address [facility] [place] [address] Care Team Providers Care Field Instructor Name Role Phone Kelley Martin APRN Primary Care Provider [phone] Encounter Details Date Type Department Care Team (Latest Contact Info) Description 01/29/2020 4:48 PM EST - 01/29/2020 11:59 PM EST Hospital [place] [phone] Discharge Disposition: Home Social History Tobacco Use [...] Sig Dispensed Refills Start Date End Date levothyroxine (Synthroid) 137 mcg tablet Take 137 mcg by mouth daily. acetaminophen (TYLENOL) 80 mg chewable tablet Take 80 mg by mouth every 4 hours as needed. Reported on 05/01/2016 vit/iron fum/folic ac ( 1+1 ORAL) Take by mouth. 10/13/2022 documented as of this encounter Plan of Treatment Not on file documented as of this encounter Procedures Procedure Name Priority Date/Time Associated Diagnosis Comments COVID-19 PCR Routine 01/29/2020 2:56 PM EST documented in this encounter Results * COVID-19 PCR (01/29/2020 2:56 PM EST) SARS-CoV-2 RNA Not Detected Not Detected [facility] Comment: This result should be interpreted in combination with the clinical observations, patient history and epidemiological information in making a final diagnosis. For testing of asymptomatic individuals, assay performance characteristics and clinical utility have not been evaluated. Testing for SARS-CoV-2 (Severe acute respiratory syndrome coronavirus 2, formerly known as 2019 novel coronavirus or 2019-nCoV) to aid in the diagnosis of COVID-19 is performed using the [employer] m SARS-CoV-2 Assay as authorized by the FDA Emergency Use Authorization (EUA). This EUA assay is intended for In-vitro Diagnostic (IVD) use with respiratory specimens such as nasopharyngeal swabs collected from individuals during the acute phase of infection. This assay is performed based on the instructions for use provided by [employer] and additional guidance provided by CDC and FDA. Testing is performed in the [facility] within the Department of Pathology and Laboratory Medicine at [facility], certified under the Clinical Laboratory Improvement Amendments of 1988 (CLIA), 42 U.S.C. 263a, to perform high complexity tests. Assay performance has been verified according to clinical laboratory regulatory requirements for use with specimens collected from individuals suspected of COVID-19. Test results are provided above. A result of ? Not Detected? indicates that the viral RNA target is not present above the limit of detection, but does not preclude SARS-CoV-2 infection. False negative results may occur if a specimen is improperly collected, transported or handled; if amplification inhibitors are present; or if inadequate numbers of viral particles are present in the specimen. When a diagnostic test is negative, the possibility of a false negative result should be considered in the context of a patient? s recent exposures and the presence of clinical signs and symptoms consistent with COVID-19. A result of ? Detected? indicates that RNA from SARS-CoV-2 was detected and the patient is infected. As required or requested by public health authorities, positive specimens may be sent for additional testing. Positive and negative predictive values for this test are highly dependent on disease prevalence. A result of ? Invalid? indicates that neither the viral RNA targets nor the internal control target was detected. An invalid result suggests the presence of inhibitors. Recollection and re-testing is recommended in the case of an invalid result. CDC COVID-19 criteria for testing on human specimens and clinical management guidance information are available at the CDC Coronavirus Disease 2019 (COVID-19) webpage under ? Information for Healthcare Professionals? (https://www.cdc.gov/coronavirus/2019-ncov/hcp/index.html) Additional information about this and other EUA tests can be found in provider and patient fact sheets at the following FDA website: https://www.fda.gov/medical-devices/mgszirdzgfc-tfromas-0918-hqshn-04-dxdwhhtvr- use-a kuiagicllycvs-wcvactn-umcjkny/rpyzp-kvaztdkxhmi-yjaw SARS-CoV-2 RNA Source Nasal [facility] Specimen from nose (specimen) Other / Unknown 01/29/2020 2:56 PM EST 01/31/2020 1:09 AM EST Narrative Resulting Agency Comment Spec In Lab Roman Weathers APRN MOLECULAR ORDERABLES Performing Organization Address City/State/[facility] Co de Phone Number [facility] [place] [address] documented in this encounter Visit Diagnoses Not on filedocumented in this encounter Care Teams Field Instructor Relationship Specialty Start Date End Date Kelley Martin APRN [address] [place] [address] PCP - General Family Medicine 01/12/19 06/24/22 documented as of this encounter
--- OUTSIDE RECORDS SUMMARY | 2024-01-14 15:01 | XMS_ITS | Encounter Summary ---
[place] [address] Care Team Providers Care General Handling Supervisor Name Role Phone Stefani Banda FARNAZ Primary Care Provider [phone]- [phone] Reason for Visit * Reason Onset Date Comments Prior Authorization 12/30/2015 Encounter Details Date Type Department Care Team (Late st Contact Info) Description 12/30/2015 Telephone [place] [phone] Tom Valladares Prior Authorization Social History Tobacco [...] * Telephone Encounter - Tom Stout - 12/30/2015 10:31 AM EDT Medication Prior Authorization COMI Medication name/dose/directions: SYNTHROID 112 mcg take 1 tablet by mouth once daily Rationale for request: HYPOTHYROIDISM Health [place] Authorizing employee representative name: TOM Faxed to health plan on: 12/30/15 Health plan decision: APPROVED Quantity approved: Authorization number: [id number] Start date: 12/30/15 End date: 12/29/16 Patient notified? YES Pharmacy notified? YES documented in this encounter Plan of Treatment Not on file documented as of this encounter Visit Diagnoses Not on filedocumented in this encounter Care Teams General Handling Supervisor Relationship Specialty Start Date End Date Stefani Banda APRN [facility] [address] [place] [address] PCP - General 12/09/10 01/11/19 documented as of this encounter
--- OUTSIDE RECORDS SUMMARY | 2024-01-14 15:01 | XMS_ITS | Encounter Summary ---
Author Organization [facility] Address [address] [place] [address] Care Team Providers Care Senior Validation Engineer Name Role Phone Unknown, Provider Primary Care Provider [phone] Encounter Details Date Type Department Care Team (Late st Contact Info) Description 11/16/2012 Results Only [facility] Laboratory Services - [facility] ([facility] [address] [place] [id number] Zahra Mclaughlin, POOL HALL INSPECTOR Social History Tobacco Use Types Packs/Day Years Used Date Smoking Tobacco: Never Assessed Sex and Gender Information Value Date Recorded Sex Assigned at Not on file Gender Identity Not on file Sexual Orientation Not on file documented as of this encounter Plan of Treatment Not on file documented as of this encounter Procedures Procedure Name Priority Date/Time Associated Diagnosis Comments PAP TEST- RESULT ONLY Routine 11/16/2012 0:00 EDT documented in this encounter Results * PAP TEST- RESULT ONLY (11/16/2012 0:00 EDT) Pathology Report: CYTOPATHOLOGY REPORT Reports generated via electronic interface contain original data; however they are lacking the format of the original report. Caution should be taken when reading/interpreti ng unformatted reports. Name: ? PREETI CAMPBELL ? Accession #: ? [id number] : ? 1985 (Age: 27) ??F ?Collect Date: ? 11/16/2012 Location: ? [facility] ? Receive Date: ? 11/17/2012 Provider: ?ZAHRA MCLAUGHLIN POOL HALL INSPECTOR Copy to: ? Specimen/Source: ?Pap Test, Cervix/Endocervix, ThinPrep Imaging System with manual evaluation Last Menstrual Period: ? 11/09/12 Hormonal/Contracep tive Status: ? Oral contraceptives ? SPECIMEN ADEQUACY ? Satisfactory for Evaluation - transformation zone component present GENERAL CATEGORIZATION ? Negative for Intraepithelial Lesion or Malignancy ? Document reviewed and electronically signed by: ? DERECK Hinkle(ASCP) ? Report Date: ??11/23/2012 13:33 End of Report [facility] 11/16/2012 11/17/2012 Zahra Mclaughlin NP PATHOLOGY ORDERABLES [facility] PETERSON [address] [place] [address] documented in this encounter Visit Diagnoses Not on filedocumented in this encounter Care Teams Senior Validation Engineer Relationship Specialty Start Date End Date Unknown, Provider, PCP - General 12/11/10 documented as of this encounter
--- OUTSIDE RECORDS SUMMARY | 2024-01-14 15:01 | XMS_ITS | Encounter Summary ---
Author Organization [facility] [place] [address] Care Team Providers Care Booking Police Officer Name Role Phone Stefani Banda APRN Primary Care Provider [phone] Reason for Visit * Reason Comments Hypothyroidism Encounter Details Date Type Department Care Team (Late st Contact Info) Description 12/06/2014 11:00 AM EDT Office [place] [address] Lloyd Tineo MD [facility] [place] [address] Acquired hypothyroidism; Paramjit's thyroiditis Discharge Disposition: Home Social History Tobacco Use [...] Sign Reading Time Taken Comments Blood Pressure 127/77 12/06/2014 11:00 AM EDT Pulse 77 12/06/2014 11:00 AM EDT Temperature - - Respiratory Rate - - Oxygen Saturation - - Inhaled Oxygen Concentration - - Weight 87.3 kg (192 lb 6.4 oz) 12/06/2014 11:00 AM EDT Height 170.2 cm (5' 7) 12/06/2014 11:00 AM EDT Body Mass Index 30.13 12/06/2014 11:00 AM EDT documented in this encounter Progress Notes * Doug Lockwood MD - 12/06/2014 9:06 PM EDT I interviewed and discussed patient along with Dr. Tineo and agree with her recommendations and plans. * Lloyd Tineo MD - 12/06/2014 11:54 AM EDT Endocrinology Follow Up Note Reason for Evaluation: Hypothyroidism HPI: This is a 29 y/o female who presents to the clinic today for follow up of hypothyroidism. Past medical history is significant for cystic fibrosis trait. Interim History Preeti has been doing well since last visit in September. She was last seen for multinodular goiter andhypothyroidism. She was started on Synthroid 112 mcg daily in September 2014. She tolerates it well and takes the medication correctly. The TFT on 11/30/2014 showed normal Free T4 of 0.99 and a normal TSH of 2.54. Patient says 85% of her hypothyroid symptoms are gone now. No more constipation, less cold intolerance and less fatigue now. Per records, she gained 5 lbs of weight but she said she wears more clothes today. Ref. Range 11/30/2014 00:00 Free T4 No range found 0.99 (External Lab) TSH No range found 2.54 (External Lab) Background history Patient noticed a lump on the left [...] concerned about the lump in her neck. She takes OCP. Past Medical History Past Medical History Diagnosis Date ??? Cystic fibrosis gene carrier Past Surgical History No past surgical history on file. Current Medications levothyroxine (SYNTHROID) 112 mcg Tablet; MONO-LINYAH 0.25-35 mg-mcg Tablet; acetaminophen (TYLENOL) 80 mg chewable tablet Review of Systems 12 point review of system was negative except for stated above in history of present illness. Physical Examination BP 127/77 mmHg Pulse 77 Ht 170.2 cm (5' 7) Wt 87.272 kg (192 lb 6.4 oz) BMI 30.13 kg/m2 Appearance: Alert awake oriented ??3, not in acute distress wt Change: Recent weight gain, mild HEENT: Pupils equal round reactive to light Neck: Thyroid exam normal, no thyroid nodule appreciated. CVS: Regular rate and rhythm Lungs: CTA B Abd: Soft, NT Ext: no pitting edema, reflexes normal. No hand tremors. Assessment Paramjit's thyroiditis / Hypothyroidism Preeti has been doing well on Synthroid 112 mcg since last visit. She tolerates it well and takes the medication correctly. The TFT normalized 2 months after taking Synthroid. Her symptoms significantly improved on Synthroid. We will continue her Synthroid at the current dose. Of note, she is taking OCP which contains estrogen. If she stops her OCP, she might require a smaller dose. She was instructed to call endocrinology clinic if she stops her OCP or she is . Recommendations - Continue Synthroid 112 ??g every morning. - Instructed patient to call endocrinology clinic if she stops her OCP or she is . - Follow up in Endocrine clinic in 12 months. - Will check TSH, Free T4 2 weeks before next visit. (external labs ordered) Plan of care has been discussed with attending physician, Dr. Fabián MD, Department of Endocrinology Lloyd Tineo MD Endocrine Fellow documented in this encounter Plan of Treatment Not on file documented as of this encounter Visit Diagnoses Diagnosis Acquired hypothyroidism Unspecified hypothyroidism Paramjit's thyroiditis Chronic lymphocytic thyroiditis documented in this encounter Care Teams Booking Police Officer Relationship Specialty Start Date End Date Stefani Banda APRN [facility] [address] [place] [address] PCP - General 12/09/10 01/11/19 documented as of this encounter
--- OUTSIDE RECORDS SUMMARY | 2024-01-14 15:01 | XMS_ITS | Referral Summary ---
Author Organization [facility] Address [address] [place] [address] Care Team Providers Care Desk Officer Name Role Phone Unknown, Provider Primary Care Provider [phone] Social History Tobacco Use Types Packs/Day Years Used Date Smoking Tobacco: Never Assessed Sex and Gender Information Value Date Recorded Sex Assigned at Not on file Gender Identity Not on file Sexual Orientation Not on file Plan of Treatment Not on file Care Teams Desk Officer Relationship Specialty Start Date End Date Unknown, Provider, PCP - General 12/11/10
--- OUTSIDE RECORDS SUMMARY | 2024-01-14 15:01 | XMS_ITS | Encounter Summary ---
Author Organization [facility] Address [address] [place] [address] Care Team Providers Care Perfect Binder Setter Name Role Phone Unavailable Primary Care Provider Unavailabl e Encounter Details Date Type Department Care Team (Late st Contact Info) Description 09/02/2010 Results Only [facility] Laboratory Services - [facility] ([facility]) [address] [place] [address] Martha Duncan [address] [place], [place] [id number] Social History Tobacco Use Types Packs/Day Years [...] Diagnosis Comments PAP TEST- RESULT ONLY Routine 09/02/2010 0:00 EDT documented in this encounter Results * PAP TEST- RESULT ONLY (09/02/2010 0:00 EDT) Pathology Report: CYTOPATHOLOGY REPORT ? Reports generated via electronic interface contain original data; ? however they are lacking the format of the original report. ? Caution should be taken when reading/interpreti ng unformatted reports. ? Name: ? PREETI CAMPBELL ? Accession #: ? [id number] ? : ? 1985 (Age: 25) ??F ?Collect Date: ? 09/02/2010 ? Location: ? [facility] ? Receive Date: ? 09/03/2010 ? Provider: ANEA LELONG CNM ? Copy to: ELYSSA BERRIAN MD ? Final Report ? SPECIMEN ADEQUACY ? Satisfactory for Evaluation ? - transformation zone component present ? GENERAL CATEGORIZATION ? Negative for Intraepithelial Lesion or Malignancy ? Last Menstural Period: 4// ? Menstural/Pregnanc y Status: ? Other: Additional clinical information: 1st pap smear ? Specimen/Source: ??Pap Test, Cervix/Endocervix, ThinPrep Imaging System with ? manual evaluation ? Document reviewed and electronically signed by: ? Estefania Clayton, [place](ASCP) ? Report ??Date: 09/09/2010 14:50 ? HPV with Pap Test ? Date Ordered: ? 09/09/2010 ? Status: ?? Signed Out ?Date Complete: ? 09/15/2010 ? By: ??System Interface ? Date Reported: ? 09/15/2010 ? Interpretation ? RESULT: Negative for HPV types 16, 18, 31, 33, 35, 39, 45, 51, 52, ? 56, 58, 59, and 68. ? Comments ? Document reviewed and electronically signed by: ? System Interface ? Report date: 09/15/2010 ? By the signature above, the attending physician certifies that he/she has ? personally conducted a gross and/or microscopic examination of the described ? specimens and rendered or confirmed the above diagnosis. ? End of Report ? KAR PETERSON 09/02/2010 09/03/2010 Martha Duncan CNM PATHOLOGY ORDERABLES KAR PETERSON [address] [place] [address] documented in this encounter Visit Diagnoses Not on filedocumented in this encounter
--- OUTSIDE RECORDS SUMMARY | 2024-01-14 15:01 | XMS_ITS | Encounter Summary ---
Author Organization [facility] Address [address] [place] [address] Care Team Providers Care Pulmonary Care Nurse Name Role Phone Unknown, Provider Primary Care Provider + [phone] Encounter Details Date Type Department Care Team (Late st Contact Info) Description 08/09/2019 Lab Requisition [facility] Pathology & Laboratory Medicine - [facility] [address] [place] [address] Outr Resulting Lab, Provider Social History Tobacco Use Types Packs/Day Years Used Date Smoking Tobacco: Never Assessed Sex and Gender Information Value Date Recorded Sex Assigned at Not on file Gender Identity Not on file Sexual Orientation Not on file documented as of this encounter Plan of Treatment Not on file documented as of this encounter Procedures Procedure Name Priority Date/Time Associated Diagnosis Comments ZZCOVID-19 TEST [facility] PCR Today 08/09/2019 3:25 EDT COVID-19 TESTING Routine 08/09/2019 3:25 EDT documented in this encounter Results * COVID-19 TEST [facility] PCR (08/09/2019 3:25 EDT) Swab ENTIRE NASOPHARYNX / Unknown 08/09/2019 3:25 EDT 08/09/2019 15:17 EDT Provider Outr Resulting Lab MICROBIOLOGY - GENERAL ORDERABLES [facility] [address] [place] [address] * COVID-19 TESTING (08/09/2019 3:25 EDT) COVID-19 rt-PCR Result Negative Negative 08/09/2019 19:39 EDT [facility] Comment: This test has not been FDA cleared or approved. This test has been authorized by FDA under an EUA for use by authorized laboratories. This test has been authorized only for detection of nucleic acid from 2019-nCoV, not for any other viruses or pathogens. This test is only authorized for the duration of the declaration that circumstances exist justifying the authorization of emergency use of in vitro diagnostic tests for detection and/or diagnosis of 2019-nCoV under section 564(b)(1) of Act, 21 U.S.C ?? 360bbb-3(b) (1), unless the authorization is terminated or revoked sooner. Negative results do not preclude 2019-nCoV infection and should not be used as the sole basis for treatment or other patient management decisions. Negative results must be combined with clinical observations, patient history, and epidemiological information. Performed on the Yostro Fusion instrument Performing Lab [place] [facility] 08/09/2019 19:39 EDT [facility] Swab ENTIRE NASOPHARYNX / Unknown 08/09/2019 3:25 EDT 08/09/2019 15:17 EDT Provider Outr Resulting Lab MICROBIOLOGY - GENERAL ORDERABLES [facility] [address] [place] [address] documented in this encounter Visit Diagnoses Not on filedocumented in this encounter Care Teams Pulmonary Care Nurse Relationship Specialty Start Date End Date Unknown, Provider, PCP - General 12/11/10 documented as of this encounter
--- OUTSIDE RECORDS SUMMARY | 2024-01-14 15:01 | XMS_ITS | Encounter Summary ---
Author Organization [facility] Address [address] [place] [address] Care Team Providers Care Test Driver Name Role Phone Unknown, Provider Primary Care Provider + [phone] Encounter Details Date Type Department Care Team (Late st Contact Info) Description 08/10/2023 Lab Requisition [facility] Pathology & Laboratory Medicine - [facility] [address] [place] [address] Reji Oneil MD [address] [place] [phone] Calculus of gallbladder without cholecystitis without obstruction Social History Tobacco Use Types Packs/Day Years Used Date Smoking Tobacco: Never Assessed Sex and Gender Information Value Date Recorded Sex Assigned at Not on file Gender Identity Not on file Sexual Orientation Not on file documented as of this encounter Plan of Treatment Not on file documented as of this encounter Procedures Procedure Name Priority Date/Time Associated Diagnosis Comments SURGICAL PATHOLOGY Today 08/09/2023 10 :48 EDT Calculus of gallbladder without cholecystitis without obstruction documented in this encounter Results * SURGICAL PATHOLOGY (08/09/2023 10:48 EDT) Note to Patient The following pathology results have been interpreted by your pathologist and may be available to you before your health provider has had the opportunity to review them. Please allow time for your provider to receive these results and explore management options, if applicable. 08/12/2023 11:07 T [facility] Final Diagnosis A. GALLBLADDER, CHOLECYSTECTOMY: - Chronic cholecystitis. - Focal cholesterolosis. - Cholelithiasis. 08/12/2023 11:07 EDT [facility] Attestation There was significant resident/fellow involvement in the diagnostic evaluation of this case. By the signature below, the attending physician certifies that they have personally conducted a gross and/or microscopic examination of the described specimens and rendered or confirmed the above diagnosis. 08/12/2023 11:07 EDT [facility] at [address] Clinical History Cholelithiasis/ch olecystitis 08/12/2023 11:07 EDT [facility] Gross Description A. Received in formalin labelled with proper patient identification (initials C, M) and gallbladder is an intact gallbladder with an attached segment of cystic duct (6.4 x 3.6 x 3.0 cm). A cystic duct lymph node is not present. The serosa is unremarkable. The mucosa is yellow-green and velvety and the wall is 0.2 cm in thickness. The cystic duct lumen is patent and measures 0.2 cm in diameter. The cystic duct margin is inked blue. There is one yellow-brown granular calculus that measures 1.4 x 1.2 x 1.2 cm.. Two product support sales representative sections and the en face cystic duct margin are submitted in A1. SHERLEY MORALES [facility] 08/10/2023 13:46 08/12/2023 11:07 EDT [facility] Resident/Alberto w: Vincent Redmond MB [facility] 08/12/2023 11:07 EDT [facility] Performing Lab [facility] 08/12/2023 11:07 EDT [facility] Scanned Images 08/12/2023 11:07 EDT [facility] Tissue GALLBLADDER STRUCTURE / Unknown 08/09/2023 10:48 EDT 08/10/2023 9:17 EDT Reji Oneil MD PATHOLOGY B[facility] KNOWLES [facility] [address] [place] [address] documented in this encounter Visit Diagnoses Diagnosis Calculus of gallbladder without cholecystitis without obstruction Calculus of gallbladder without mention of cholecystitis or obstruction documented in this encounter Care Teams Test Driver Relationship Specialty Start Date End Date Unknown, Provider, PCP - General 12/11/10 documented as of this encounter
--- OUTSIDE RECORDS SUMMARY | 2024-01-14 15:01 | XMS_ITS | Encounter Summary ---
Author Organization [facility] Address [address] [place] [address] Care Team Providers Care Pediatric Cns Name Role Phone Unknown, Provider Primary Care Provider + [phone] Encounter Details Date Type Department Care Team (Late st Contact Info) Description 09/07/2019 Lab Requisition [facility] Pathology & Laboratory Medicine - [facility] [address] [place] [address] Outr Resulting Lab, Provider Social History Tobacco [...] Procedure Name Priority Date/Time Associated Diagnosis Comments THYROPEROXIDASE ANTIBODY Routine 09/07/2019 12:45 EDT documented in this encounter Results * (ABNORMAL) THYROPEROXIDASE ANTIBODY (09/07/2019 12:45 EDT) Thyroperoxidase Ab >1,300(H) <=60 U/mL 2019 8:33 EDT [facility] Blood VENOUS BLOOD / Unknown 09/07/2019 12:45 EDT 09/07/2019 21:09 EDT Provider Outr Resulting Lab CHEMISTRY & BLOOD GAS ORDERABLES [facility] [address] [place] [address] documented in this encounter Visit Diagnoses Not on filedocumented in this encounter Care Teams Pediatric Cns Relationship Specialty Start Date End Date Unknown, Provider, PCP - General 12/11/10 documented as of this encounter
--- OUTSIDE RECORDS SUMMARY | 2024-01-14 15:01 | XMS_ITS | Encounter Summary ---
Author Organization [facility] Address [address] [place] [address] Care Team Providers Care Time Signal Wirer Name Role Phone Unknown, Provider Primary Care Provider + [phone] Encounter Details Date Type Department Care Team (Late st Contact Info) Description 08/30/[address] [facility] [phone] Lupe Shipley, [facility] [address] [place] [phone] Social History Tobacco Use Types Packs/Day Years [...] Diagnosis Comments PAP TEST- RESULT ONLY Routine 08/30/2017 0:00 EDT documented in this encounter Results * PAP TEST- RESULT ONLY (08/30/2017 0:00 EDT) Pathology Report: CYTOPATHOLOGY REPORT Reports generated via electronic interface contain original data; however they are lacking the format of the original report. Caution should be taken when reading/interpreti ng unformatted reports. Name: ? PREETI CAMPBELL ? Accession #: ? [id number] ? : ? 1985 (Age: 32) ??F ?Collect Date: ? 08/30/2017 ? Location: ? [facility] ? Receive Date: ? 08/31/2017 ? Provider: LUPE SHIPLEY MANAGER RELOCATION Copy to: VALERIE Jose SORIA MANAGER RELOCATION ? Final Report SPECIMEN ADEQUACY ? Satisfactory for Evaluation - transformation zone component present - scant squamous epithelial component secondary to excessive inflammation GENERAL CATEGORIZATION ? Negative for Intraepithelial Lesion or Malignancy ?? Last Menstrual Period: 08/21/17 Specimen/Source: ??Pap Test, Cervix, ThinPrep Imaging System with manual evaluation Document reviewed and electronically signed by: ? Estefania Samayoa, CT(ASCP) ? Report ??Date: 09/06/2017 12:39 HPV with Pap Test ? Date Ordered: ? 09/06/2017 ? Status: ?? Signed Out ?Date Complete: ? 09/07/2017 ? By: ??System Interface ? Date Reported: ? 09/07/2017 ? Interpretation RESULT: Negative for HPV. No E6 or E7 mRNA is detected from HPV types 16,18,31,33,35, 39,45,51,52,56,58, 59,66, and 68 by automotive buyer mediated amplification. Comments Document reviewed and electronically signed by: ? System Interface ? Report date: 09/07/2017 By the signature above, the attending physician certifies that he/she has personally conducted a gross and/or microscopic examination of the described specimens and rendered or confirmed the above diagnosis. End of Report [facility] 08/30/2017 08/31/2017 Lupe Shipley MANAGER RELOCATION PATHOLOGY ORDERABLES [facility] [address] [place] [address] documented in this encounter Visit Diagnoses Not on filedocumented in this encounter Care Teams Time Signal Wirer Relationship Specialty Start Date End Date Unknown, Provider, PCP - General 12/11/10 documented as of this encounter
--- OUTSIDE RECORDS SUMMARY | 2024-01-14 15:01 | XMS_ITS | Encounter Summary ---
Author Organization [facility] Address [facility] [place] [place] [address] Care Team Providers Care Prepress Proofer Name Role Phone Kelley Martin APRN Primary Care Provider Reason for Visit * Reason Comments Positive Genetic Carrier Screen patient and partner are both carriers for cystic fibrosis * Consultation (Routine) - Specialty Diagnoses / Procedures Referred By Samantha ricks Referred To Contact Obstetrics and Gynecology Diagnoses Encounter for supervision of normal , unspecified, unspecified trimester pt and FOB CF carrier Martha Duncan CNM [address] [place] [address] [facility] Calendering Machine [address] [place] [address] Referral ID Status Reason Start Date Expiration Date V isits Requested Visits Authorized [id number] Consult, Test & Treat Connection Center PCP Updated and/or Approved 01/12/2019 01/12/2020 6 6 Encounter Details Date Type Department Care Team (Late st Contact Info) Description 03/06/2019 10:00 AM EST Office Visit [place]stetric[place] [address] Prabhjot Villa, [facility] OBSTETRICS [facility] [place] [address] 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 female currently at 18w3d gestation. I met with Preeti for a 30 minute genetic counseling visit. She was accompanied to the visit by her partner, Sanchez Maravilla. Referring Provider: Martha Duncan CNM [address] [place] [address] Chief Complaint Patient presents with ??? Positive Genetic Carrier Screen patient and partner are both carriers for cystic fibrosis Past Medical History: Diagnosis Date ??? Cystic fibrosis gene carrier ??? Hypothyroidism ??? Migraines Family History Problem (# of Occurrences) Relation (Name,Age of Onset) Congenital Anomalies (1) Niece: left hand anomaly Rheumatoid Arthritis (1) Mother A pedigree was obtained and will be scanned into Preeti's electronic medical record. Preeti is ofCaucasian ancestry. Sanchez is of Chinese and [place] ancestry. Consanguinity is denied. OB History Para Term AB Living 2 1 1 0 0 1 SAB TAB Ectopic Multiple Live Births 0 0 0 0 1 # Outcome Date GA Lbr Harry/2nd Weight Sex Delivery Anes PTL Lv 2 Current 1 Term 04/16/11 42w0d 3.629 kg (8 lb) F Vag-Spont JEROME Patient's last menstrual period was 10/17/2018. Estimated Date of Delivery: 08/04/2019 based on ultrasound dating (8w0d on 12/23/2018). Screening Results Test Result ? ? [place] cell-free screen Low probability (<1/10,000) for trisomy 21, trisomy 18, & trisomy 13 ??? Cystic fibrosis carrier screen Positive (one copy of the [id number] mutation) ??? Spinal muscular atrophy carrier screen Negative (two copies of SMN1) ??? Thalassemia screen Within normal limits (MCV 91.6 fL) Assessment 1. 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 The fetus has a 25% chance of being homozygous for [id number], which would cause classic cystic fibrosis. We reviewed the options for and diagnosis. Preeti declines amniocentesis as she did with her last . She found it reassuring that her first child had no evidence of echogenic bowel by ultrasound examination and is hoping for the same outcome today. I reiterated that the absence of echogenic bowel does not exclude cystic fibrosis. We reviewed that screening for cystic fibrosis is routine. However, diagnostic testing s hould also be planned. Preeti reports that her daughter had a negative sweat test about a month after . I noted that genetic testing of the may be considered instead, or it is possible that sweat testing could be done sooner as this is done on newborns with a positive screen. I also warned the couple that newborns who are carriers are more likely to have a false positive screen. This is helpful to know because the fetus has a 50% chance of being heterozygous for [id number]. 2. Chinese [place] ancestry: Per ACOG guidelines, I offered carrier screening for Agustin-Sachs diseasebased on Sanchez's [place] ancestry. The carrier frequency is about 1 in 70 among individualsof Chinese [place] ancestry and about 1 in 300 in the general population. The chance of the couple both being carriers is about 1 in 21,000. The couple declined carrier screening for Agustin- Sachs disease. Plan Detailed morphology ultrasound and maternal- medicine consultation today as scheduled. 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
--- OUTSIDE RECORDS SUMMARY | 2024-01-14 15:01 | XMS_ITS | Encounter Summary ---
Author Organization [facility] Address [facility] [place] [place] [address] Care Team Providers Care Professor Of Graphic Design Name Role Phone Stefani Banda COMBAT SYSTEMS OPERATOR [employer] Primary Care Provider [phone] Reason for Visit * Reason Comments Positive Genetic Carrier Screen Ultrasound Encounter Details Date Type Department Care Team (Late st Contact Info) Description 12/16/2010 10:30 AM EDT Office Visit [place] [phone] Pedro Rodriguez MD [facility] OBSTETR[facility] [place] [address] Cystic fibrosis gene carrier; Social History Tobacco Use Types Packs/Day Years [...] as of this encounter Progress Notes * Pedro Rodriguez MD - 12/16/2010 12:44 PM EDT Diagnosis/Maternal Medicine Consult Note Preeti Campbell is a 25 y.o. year old female with an MARA of 04/08/11 who is at 23w6d weeks gestation. 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 She was seen today for maternal- medicine consultation, ultrasound evaluation and genetic counseling with Susan Vazquez MSc. Review of Systems Constitutional:feels well Movement: normal Contractions: none Leaking: None Bleeding: none now Patient Active Problem List Diagnoses Date Noted ??? [V22.2C] 12/16/2010 ??? Cystic fibrosis gene carrier [V83.81] Past Medical History Diagnosis Date ??? Cystic fibrosis gene carrier History reviewed. No pertinent past surgical history. Family History Problem Relation Age of Onset ??? Rheum Arthritis Mother Social History Occupational History ??? Not on file. Social History Main Topics ??? Smoking status: Former Smoker -- 0.5 packs/day Types: Cigarettes Quit date: 12/11/2010 ??? Smokeless tobacco: Not on file ??? Alcohol Use: No ??? Drug Use: No ??? Sexually Active: Yes -- Male partner(s) OB History Grav Para Term Abortions TAB SAB Ect Mult Living 1 # Outc Date GA Lbr Harry/2nd Wgt Sex Del Anes PTL Lv 1 CUR Current outpatient prescriptions Medication Sig Dispense Refill ? ? vitamin 27 & [id number] 60 mg (Iron)-1 mg tablet Take 1 tablet by mouth daily. ??? acetaminophen (TYLENOL) 80 mg chewable tablet Take 80 mg by mouth every 4 hours as needed. Allergies Allergen Reactions ??? Sulfa (Sulfonamide Antibiotics) ??? Penicillins Ultrasound Date: 12/16/2010 Growth appropriate for gestational age Amniotic fluid volume normal Placenta posterior, fundal Presentation breech anatomy appears within normal limits Physical Exam General: alert, well appearing, in no apparent distress, oriented to person, place and time HEENT: normocephalic, atraumatic Abdomen: Soft, nontender Extremities: no edema Neurologic:alert, oriented, normal speech, no focal findings or movement disorder noted Psychiatric: Affect is Appropriate. Assessment and Recommendations: 25 y.o. year old female at 23w6d weeks gestation. We discussed the results of screening for cystic fibrosis gene mutations. Issues discussed include the couple's prior risk, the limitations of carrier testing, the implications for an affected child, screening and the possibility of making a diagnosis by amniocentesis. The patient chose not to pursue diagnostic testing. I recommend consideration of follow-up ultrasound at 34 - 36 weeks to reevaluate growth and to screen for echogenic bowel. I appreciate the opportunity to be involved in this patients care, and am available if further questions should arise. Pedro RODRIGUEZ MD 12/16/2010 Cc: Martha Duncan CNM, with copy of ultrasound report documented in this encounter Plan of Treatment Not on file documented as of this encounter Visit Diagnoses Diagnosis Cystic fibrosis gene carrier state, incidental documented in this encounter Care Teams Professor Of Graphic Design Relationship Specialty Start Date End Date Stefani Banda APRN [facility] [address] [place] [address] PCP - General 12/09/10 01/11/19 documented as of this encounter
--- OUTSIDE RECORDS SUMMARY | 2024-01-14 15:01 | XMS_ITS | Encounter Summary ---
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); Famil hered dis antepart Social History Tobacco Use Types Packs/Day Years [...] Sign Reading Time Taken Comments Blood Pressure 102/50 11/20/2010 10:00 AM EDT Pulse - - Temperature - - Respiratory Rate - - Oxygen Saturation - - Inhaled Oxygen Concentration - - Weight 72.6 kg (160 lb) 11/20/2010 10:00 AM EDT Height 170.2 cm (5' 7) 11/20/2010 10:00 AM EDT Body Mass Index 25.06 11/20/2010 10:00 AM EDT documented in this encounter Progress Notes * Susan Khalil, MS - 12/16/2010 10:24 AM EDT Preeti was referred to the Diagnosis Program by Martha Duncan due to the risk of cystic fibrosis to their children. I met with Preeti for a 45 minute genetic counseling visit prior to her ultrasound and maternal- medicine consultation. She was accompanied to the visit by her partner, Sanchez Maravilla. history: Preeti is a 25 y.o. currently at 23w6d by ultrasound dating (MARA 04/08/11). Family history: Preeti's family history includes Rheum Arthritis in her mother. The remainder of the family history was unremarkable for any individuals with mental retardation, defects, recurrent loss, or known genetic conditions. Consanguinity denied.Preeti is of [place] decent and Sanchez is of [facility] dece. Sanchez's mother spoke of one of her cousin having 2 children with cystic fibrosis, Sanchez did not know them. 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 We reviewed the etiology, incidence, inheritance and clinical features of CF, and the limitations of predicting clinical severity based on genotype. The approximate risk to the for CF is 1/4 (25%). We discussed the option for the couple to meet with the CF clinic at [facility] for a thorough discussion of the range of symptoms and disease management. If it is determined that the fetus is affected they would probably pursue gathering further information, but decline at this point. They were given Karen Westbrook's (the CF nurse coordinator) phone number as a personal financial counselor if needed. They were also ok with us sharing their name with the CF clinic. We reviewed the benefits, risks, and limitations of the options for additional screening and testing, which includeamniocentesis, ultrasound and screening. Preeti declined amniocentesis. Thecouple shared that theywould not consider termination for CF. We also discussed the inclusion of CF on the [place], [place] and [facility] NewbornScre[facility] Panel, and the risk for CF carriers to screen positive by this analysis. We discussed the implications of the cystic fibrosis results for the couple???s families, and we encouraged them to share the CF results with their families. Plan: Following our visit, Preeti Campbell had a morphology ultrasound and maternal- medicine consultation with Dr. Dennys Rodriguez. Please refer to her note for further details and recommendations. documented in this encounter Plan of Treatment Not on file documented as of this encounter Visit Diagnoses Diagnosis Cystic fibrosis gene carrier- Primary Hereditary disease in family possibly affecting fetus, affecting management of mother, antepartum condition or complication documented in this encounter Care Teams Investigator Welfare Relationship Specialty Start Date End Date Stefani Banda APRN [facility] [address] [place] [address] PCP - General 12/09/10 01/11/19 documented as of this encounter
--- OUTSIDE RECORDS SUMMARY | 2024-01-14 15:01 | XMS_ITS | Encounter Summary ---
Author Organization [facility] [place] [address] Care Team Providers Care International First Officer Name Role Phone Kelley Martin APRN Primary Care Provider [phone] Encounter Details Date Type Department Care Team (Latest Contact Info) Description 03/06/2019 9:33 AM EST - 03/06/2019 11:59 PM EST Hospital [place] [phone] Martha Guerrero CNM [address] [place] [address] Cystic fibrosis gene carrier Discharge Disposition: Home Social History Tobacco Use [...] Diagnosis Comments US OB DETAILED MORPHOLOGY Routine 03/06/2019 11:18 AM EST Cystic fibrosis gene carrier documented in this encounter Results * US OB Detailed Morphology (03/06/2019 11:18 AM EST) Anatomical Region Laterality Modality Pelvis, Abdomen Ultrasound 03/06/2019 11:1 4 AM EST Impressions 03/06/2019 11:21 AM EST 2nd Trimester - Detailed Morphology - Summary Single intrauterine with a gestational age of 18w 3d based on Early Ultrasound ??(12/23/18) Composite age based on the current ultrasound alone is 18w 4d. Current growth parameters are consistent with prior dating indicating normal growth. Amniotic fluid volume is Normal ??Detailed anatomic evaluation was performed and no structural abnormalities are noted. ?Rukhsana Terrazas, Derrick Worker Electronically Signed Final Report ?? 03/06/2019 11:21 am Narrative 03/06/2019 11:21 AM EST OBSTETRICS REPORT ? (Signed Final 03/06/2019 11:21 am) PATIENT INFO: ID #: ? [id number] ?: ??[birth year] (33 yrs) Name: ? PREETI Joyce ?Visit Date: 03/06/2019 11:14 am ? JIA PERFORMED BY: Performed By: ? Smiley Wallace RDMS Attending: ?Mk GUTIERREZ, Rukhsana Gupta Referred By: ?MARTHA GUERRERO Location: ? [place] SERVICE(S) PROVIDED: ??UM - Detailed Morphology - [id number] ? [id number] INDICATIONS: ??18 weeks gestation of ?Z3A.18 ??pt & father are both CF carries VITAL SIGNS: Weight (lb): 184.0 Height: ?5'7 ?BMI: ?28.82 EVALUATION: Num Of Fetuses: ?1 Heart Rate(bpm): ?? 149 Cardiac Activity: ?Observed, normal rhythm Presentation: ?Breech Placenta: ?Posterior P. Cord Insertion: ? Within Normal Limits Amniotic Fluid RODNEY FV: ?Normal --------- BIOMETRY: --------- BPD: ?41.5 ??mm ? G.Age: ?? 18w 4d OFD: ?58.3 ??mm HC: ?160.7 ??mm ? G.Age: ?? 18w 6d AC: ?128.6 ??mm ? G.Age: ?? 18w 3d FL: ? 27.4 ??mm ? G.Age: ?? 18w 3d HUM: ?26.3 ??mm ? G.Age: ?? 18w 2d CER: ?18.3 ??mm ? G.Age: ?? 18w 1d NFT: ? 4.0 ??mm NB: ?6.1 ??mm LV: ?7.5 ??mm CM: ?4.2 ??mm CI: ?71.2 ??% ? 70 - 86 FL/HC: ? 17.1 ??% ? 15.8 - 18 HC/AC: ? 1.25 ?1. - 04.19 FL/BPD: ?66.0 ??% FL/AC: ? 21.3 ??% ? - Est. FW: ? 240 ?? gm ? 0 lb 8 oz OB HISTORY: : ?2 ? Term: ?? 1 Living: ? 1 GESTATIONAL AGE: LMP: ? 20w 0d ?Date: ??10/17/18 ? MARA: ?? 07/24/19 U/S Today: ? 18w 4d ?MARA: ?? 08/03/19 Best: ?18w 3d ?? Det. By: ??Early ?MARA: ?? 08/04/19 ? Ultrasound ? (12/23/18) TARGETED ANATOMY: Central Nervous System Calvarium/Cranial V.: ??Within Normal Limits Intracranial Aniya: ? Within Normal Limits Cavum: ? Within Normal Limits Parenchyma: ?Within Normal Limits Lateral Ventricles: ?Within Normal Limits Choroid Plexus: ?Within Normal Limits Cereb./Vermis: ? Within Normal Limits Cisterna Magna: ?Within Normal Limits Midline Falx: ?Within Normal Limits Spine Cervical: ?Visualized Thoracic: ?Visualized Lumbar: ?Visualized Sacral: ?Visualized Shape/Curvature: ? Visualized Head/Neck Face: ?Within Normal Limits Lips: ?Within Normal Limits Neck: ?Within Normal Limits Nuchal Fold: ? Within Normal Limits Nasal Bone: ?Present Profile: ? Visualized Orbits/Eyes: ? Visualized Mandible: ?Visualized Maxilla: ? Visualized Thorax Thoracic Contour: ?Within Normal Limits Lungs: ? Visualized 4 Chamber View: ?Within Normal Limits Cardiac Motion: ?Normal Rhythm Rt Outflow Tract: ?Visualized Lt Outflow Tract: ?Visualized Aortic Arch: ? Visualized Ductal Arch: ? Visualized SVC: ? Visualized Cardiac North Pitcher: ?Visualized Diaphragm: ? Visualized 3 Vessel View: ? Visualized IVC: ? Visualized Abdomen Ventral Wall: ?Visualized Cord Insertion: ?Visualized Situs: ? Normal Stomach: ? Visualized Liver: ? Visualized Lt Kidney: ? Visualized Rt Kidney: ? Visualized Bladder: ? Visualized Bowel: ? Visualized Extremities Lt Humerus: ?Within Nomal Limits Rt Humerus: ?Within Normal Limits Lt Forearm: ?Within Normal Limits Rt Forearm: ?Within Normal Limits Lt Hand: ? Within Normal Limits Rt Hand: ? Within Normal Limits Lt Femur: ?Within Normal Limits Rt Femur: ?Within Normal Limits Lt Lower Leg: ?Within Normal Limits Rt Lower Leg: ?Within Normal Limits Lt Foot: ? Visualized Rt Foot: ? Visualized Other Umbilical Cord: ?3 vessel cord Genitalia: ? Female CERVIX UTERUS ADNEXA: Left Ovary Size(cm) ? 3.8 ??x ?? 3.9 ?x ??2.2 ? Vol(ml): 16.8 Visualized Right Ovary Not visualized Procedure Note Rukhsana Terrazas MD - 03/06/2019 OBSTETRICS REPORT (Signed Final 03/06/2019 11:21 am) PATIENT INFO: ID #: [id number] : [birth year] (33 yrs) Name: PREETI Cook Visit Date: 03/06/2019 11:14 am JIA PERFORMED BY: Performed By: Smiley Wallace RDMS Attending: Rukhsana Terrazas MD Referred By: MARTHA GUERRERO Location: [place] SERVICE(S) PROVIDED: [facility] - Detailed Morphology - [id number] INDICATIONS: 18 weeks gestation of Z3A.18 pt & father are both CF carries VITAL SIGNS: Weight (lb): 184.0 Height: 5'7 BMI: 28.82 EVALUATION: Num Of Fetuses: 1 Heart Rate(bpm): 149 Cardiac Activity: Observed, normal rhythm Presentation: Breech Placenta: Posterior P. Cord Insertion: Within Normal Limits Amniotic Fluid RODNEY FV: Normal --------- BIOMETRY: --------- BPD: 41.5 mm G.Age: 18w 4d OFD: 58.3 mm HC: 160.7 mm G.Age: 18w 6d AC: 128.6 mm G.Age: 18w 3d FL: 27.4 mm G.Age: 18w 3d HUM: 26.3 mm G.Age: 18w 2d CER: 18.3 mm G.Age: 18w 1d NFT: 4.0 mm NB: 6.1 mm LV: 7.5 mm CM: 4.2 mm CI: 71.2 % 70 - 86 FL/HC: 17.1 % 15.8 - 18 HC/AC: 1.25 1.07 - 1.29 FL/BPD: 66.0 % FL/AC: 21.3 % 20 - 24 Est. FW: 240 gm 0 lb 8 oz OB HISTORY: : 2 Term: 1 Livin GESTATIONAL AGE: LMP: 20w 0d Date: 10/17/18 MARA: 07/24/19 U/S Today: 18w 4d MARA: 08/03/19 Best: 18w 3d Det. By: Early MARA: 08/04/19 Ultrasound (12/23/18) TARGETED ANATOMY: Central Nervous System Calvarium/Cranial V.: Within Normal Limits Intracranial Aniya: Within Normal Limits Cavum: Within Normal Limits Parenchyma: Within Normal Limits Lateral Ventricles: Within Normal Limits Choroid Plexus: Within Normal Limits Cereb./Vermis: Within Normal Limits Cisterna Magna: Within Normal Limits Midline Falx: Within Normal Limits Spine Cervical: Visualized Thoracic: Visualized Lumbar: Visualized Sacral: Visualized Shape/Curvature: Visualized Head/Neck Face: Within Normal Limits Lips: Within Normal Limits Neck: Within Normal Limits Nuchal Fold: Within Normal Limits Nasal Bone: Present Profile: Visualized Orbits/Eyes: Visualized Mandible: Visualized Maxilla: Visualized Thorax Thoracic Contour: Within Normal Limits Lungs: Visualized 4 Chamber View: Within Normal Limits Cardiac Motion: Normal Rhythm Rt Outflow Tract: Visualized Lt Outflow Tract: Visualized Aortic Arch: Visualized Ductal Arch: Visualized SVC: Visualized Cardiac North Pitcher: Visualized Diaphragm: Visualized 3 Vessel View: Visualized IVC: Visualized Abdomen Ventral Wall: Visualized Cord Insertion: Visualized Situs: Normal Stomach: Visualized Liver: Visualized Lt Kidney: Visualized Rt Kidney: Visualized Bladder: Visualized Bowel: Visualized Extremities Lt Humerus: Within Nomal Limits [...] Visualized Other Umbilical Cord: 3 vessel cord Genitalia: Female CERVIX UTERUS ADNEXA: Left Ovary Size(cm) 3.8 x 3.9 x 2.2 Vol(ml): 16.8 Visualized Right Ovary Not visualized IMPRESSION 2nd Trimester - Detailed Morphology - Summary Single intrauterine with a gestational age of 18w 3d based on Early Ultrasound (12/23/18) Composite age based on the current ultrasound alone is 18w 4d. Current growth parameters are consistent with prior dating indicating normal growth. Amniotic fluid volume is Normal Detailed anatomic evaluation was performed and no structural abnormalities are noted. Rukhsana Terrazas, Derrick Worker Electronically Signed Final Report 03/06/2019 11:21 am [facility] ORDER[facility] documented in this encounter Visit Diagnoses Diagnosis Cystic fibrosis gene carrier documented in this encounter Care Teams International First Officer Relationship Specialty Start Date End Date Kelley Martin, LAUNDRY TECH [address] [place] [address] PCP - General Family Medicine 01/12/19 06/24/22 documented as of this encounter
--- OUTSIDE RECORDS SUMMARY | 2024-01-14 15:01 | XMS_ITS | Encounter Summary ---
Author Organization [facility] [place] [address] Care Team Providers Care Decision Support Analyst Name Role Phone Kelley Martin APRN Primary Care Provider [phone] Reason for Visit * Reason Comments Medication Refill Encounter Details Date Type Department Care Team (Late st Contact Info) Description 09/27/2015 Refill [place] [address] Calvin Cesar MD [facility] [address] Other specified hypothyroidism Social History Tobacco Use [...] hypothyroidism documented in this encounter Care Teams Decision Support Analyst Relationship Specialty Start Date End Date Kelley Martin APRN [address] [place] [address] PCP - General Family Medicine 01/12/19 06/24/22 documented as of this encounter
--- OUTSIDE RECORDS SUMMARY | 2024-01-14 15:01 | XMS_ITS | Encounter Summary ---
Author Organization [facility] [place] [address] Care Team Providers Care Commercial Insurance Underwriter Name Role Phone Stefani Banda Briseyda OSEI Primary Care Provider [phone] Encounter Details Date Type Department Care Team (Late st Contact Info) Description 10/23/2016 Ancillary Procedure Radiology Library at [facility] [place] [id number] Kelley Martin APRN [address] [place], [place] [address] Social History Tobacco Use Types Packs/Day Years [...] Procedure Name Priority Date/Time Associated Diagnosis Comments FILM LIBRARY STORAGE ONLY CT ABDOMEN AND PELVIS Routine 10/23/2016 12:00 AM EDT documented in this encounter Results * Film Library- Storage Only CT Abdomen & Pelvis (10/23/2016 12:00 AM EDT) Narrative [facility] - 09/11/2019 11:23 AM EDT This exam is auto-finalizing. It's purpose is for storage only. Kelley Martin APRN [facility] FILM LIBRARY ORD ERABLES DH RAD [place], [place] documented in this encounter Visit Diagnoses Not on filedocumented in this encounter Care Teams Commercial Insurance Underwriter Relationship Specialty Start Date End Date Stefani Banda, FARNAZ [facility] [address] [place] [address] PCP - General 12/09/10 01/11/19 documented as of this encounter
--- OUTSIDE RECORDS SUMMARY | 2024-01-14 15:01 | XMS_ITS | Encounter Summary ---
[place] [address] Care Team Providers Care Material Clerk Name Role Phone Stefani Banda APRN Primary Care Provider [phone] Encounter Details Date Type Department Care Team (Late st Contact Info) Description 03/05/2016 Telephone [place] [address] Lloyd Tineo MD [facility] [place] [address] Social History Tobacco Use Types Packs/Day Years [...] encounter Miscellaneous Notes * Telephone Encounter - Lloyd Tineo MD - 03/05/2016 4:35 PM EST The PCP called and stated that the patient has a unilateral thyroid swelling. Pt c/o tenderness on palpitation and mild pain when swallowing. Denies difficulty breathing. Patient also stopped her OCPin 01/2016 trying to conceive. I recommend the following: - Check TSH and adjust the LT4 accordingly - Check thyroid US - Call my office with the results Lloyd Tineo Endocrine Fellow [phone] documented in this encounter Plan of Treatment Not on file documented as of this encounter Visit Diagnoses Not on filedocumented in this encounter Care Teams Material Clerk Relationship Specialty Start Date End Date Stefani Banda APRN [facility] [address] [place] [address] PCP - General 12/09/10 01/11/19 documented as of this encounter
--- OUTSIDE RECORDS SUMMARY | 2024-01-14 15:01 | XMS_ITS | Encounter Summary ---
[facility] [place] [address] Care Team Providers Care Block Breaker Operator Name Role Phone Kelley Martin APRN Primary Care Provider [phone] Reason for Visit * Reason Onset Date Comments Advice Only 08/10/2019 Encounter Details Date Type Department Care Team (Late st Contact Info) Description 08/10/2019 Telephone Obstetrics [place] [phone] [facility] [place] [address] Advice Only Social History Tobacco Use Types Packs/Day Years [...] Miscellaneous Notes * Telephone Encounter - Prabhjot Villa, [facility] - 08/10/2019 10:13 AM EDT Genetic Counseling Telephone Note Returned phone call from Dr. Soto, glass silverer at [facility]. Peytons baby has been born, and they would like to send genetic testing for cystic fibrosis (both parents are known carriers, baby at 25% risk). I forwarded my previous email to Martha Duncan to Dr. Márquez. This includes the link to [facility]'sfamilial mutation testing (test ID: [id number]), which may be done on a dried blood spot specimen. I alsoforwarded the ???Required Patient Information?? form with the parents' information filled in; the patient information section will need to be completed with the baby's information. documented in this encounter Plan of Treatment Not on file documented as of this encounter Visit Diagnoses Not on filedocumented in this encounter Care Teams Block Breaker Operator Relationship Specialty Start Date End Date Kelley Martin, JUNIOR [employer] SYSTEMS ADMINISTRATOR [address] [place] [address] PCP - General Family Medicine 01/12/19 06/24/22 documented as of this encounter
--- OUTSIDE RECORDS SUMMARY | 2024-01-14 15:01 | XMS_ITS | Encounter Summary ---
Author Organization [facility] [place] [address] Care Team Providers Care News Content Specialist Name Role Phone Stefani Banda APRN Primary Care Provider [phone] Encounter Details Date Type Department Care Team (Late st Contact Info) Description 12/04/2014 External [place] [address] Lloyd Tineo MD [facility] [place] [address] Social History Tobacco Use Types Packs/Day Years [...] Procedure Name Priority Date/Time Associated Diagnosis Comments EXTERNAL LAB CBC CMP THYROID RESULTS PANEL Routine 11/30/2014 documented in this encounter Results * (ABNORMAL) CBC / CMP / Thyroid External Results (11/30/2014) Thyroid Stimulating Hormone 2.54(Exter nal Lab) Free T4 0.99(Exter nal Lab) 11/30/2014 Lloyd Tineo MD EXTERNAL LAB ORDERAB LES documented in this encounter Visit Diagnoses Not on filedocumented in this encounter Care Teams News Content Specialist Relationship Specialty Start Date End Date Stefani Banda APRN [facility] [address] [place] [address] PCP - General 12/09/10 01/11/19 documented as of this encounter
--- OUTSIDE RECORDS SUMMARY | 2024-01-14 15:01 | XMS_ITS | Clinical Summary ---
Author Organization [facility] Address [facility] [place] [address] Care Team Providers Care President And Chief Executive Officer Name Role Phone Deb Haas APRN Primary Care Provider [phone] Allergies Active Allergy Reactions Criticality Noted Date Comments Penicillins 12/16/2010 Sulfa (Sulfonamide Antibiotics) 11/21 Medications Medication Sig Dispensed Refills Start Date End Date Status acetaminophen (TYLENOL) 80 mg chewable tablet Take 80 mg by mouth every 4 hours as needed. Reported on 05/01/2016 Active levothyroxine (Synthroid) 137 mcg tablet Take 137 mcg by mouth daily. Active SUMAtriptan (Imitrex) 25 mg tablet Take 25 mg by mouth as needed for Migraine. Initial dose: 25 mg, 50 mg, or 100 mg (take with fluids). May repeat dose after 2 hours. Max daily dose: 200 mg Active Active Problems Problem Noted Date Diagnosed Date Nicotine dependence in remission 03/06/2019 Other specified hypothyroidism 03/06/2019 state, incidental 12/16/2010 Overview (12/20/2011): Dx replacement utility run on deactivated IMO Dx [id number] Cystic fibrosis gene carrier Family History Medical History Relation Comments Rheumatoid Arthritis Mother Congenital Anomalies Niece left hand a nomaly Relation Status Comments Father Alive Maternal Half-Brother Alive Mother Alive Nephew Alive Niece Alive Paternal Half-Sister 1 Alive Paternal Half-Sister 2 Alive Social History Tobacco Use Types Packs/Day Years Used Date Smoking Tobacco: Former Cigarettes Q uit: 08/02/2014 Smokeless Tobacco: Never Alcohol Use Standard Drinks/Week Comments No 0 (1 standard drink = 0.6 oz pur e alcohol) Sex and Gender Information Value Date Recorded Sex Assigned at Not on file Gender Identity Not on file Sexual Orientation Not on file Last Filed Vital Signs Vital Sign Reading Time Taken Comments Blood Pressure 114/58 03/06/2019 9:48 AM EST Pulse 81 05/01/2016 10:48 AM EST Temperature - - Respiratory Rate - - Oxygen Saturation - - Inhaled Oxygen Concentration - - Weight 83.5 kg (184 lb 1.6 oz) 03/06/2019 9:48 A M EST Height 170.2 cm (5' 7) 05/01/2016 10:48 AM EST Body Mass Index 28.83 05/01/2016 10:48 AM EST Plan of Treatment Health Maintenance Due Date Last Done Comments HIV screen 2005 Hepatitis C Screening 2005 Hepatitis B vaccine (0-59 yrs) (1) 2006 Tetanus/Diphtheria/Pertussis Vaccines (1 - Tdap) 05/03 HPV test 2017 PAP Smear 2017 Covid-19 Vaccine (1 - 2022- season) 2023 Influenza (Flu) vaccine (1 o f 1 - Influenza standard series) 11/21/2023 Care Teams President And Chief Executive Officer Relationship Specialty Start Date End Date Deb Haas, ARCHIVES SPECIALIST [place] [place] [address] PCP - General Family Medicine 06/25/22
--- OUTSIDE RECORDS SUMMARY | 2024-01-14 15:01 | XMS_ITS | Encounter Summary ---
Author Organization [facility] [place] [address] Care Team Providers Care Match Up Worker Name Role Phone Stefani Banda APRN Primary Care Provider [phone] Encounter Details Date Type Department Care Team (Late st Contact Info) Description 09/26/2014 [place] [phone] Stefani Banda APRN [facility] [address] [place], [place] [address] Social History Tobacco Use Types Packs/Day Years [...] Associated Diagnosis Comments FILM LIBRARY STORAGE ONLY ULTRASOUND STUDY Routine 09/26/2014 2:11 PM EDT documented in this encounter Results * Film Library- Storage only Ultrasound Study (09/26/2014 2:11 PM EDT) Anatomical Region Laterality Modality Other 09/26/2014 2:11 PM EDT Narrative 09/27/2014 2:16 PM EDT This is a Non-reportable exam Procedure Note [place], UNSIGNED REPORT - 09/27/2014 This is a Non-reportable exam Stefani Banda APRN IM FILM LIBRARY O RDERABLES documented in this encounter Visit Diagnoses Not on filedocumented in this encounter Care Teams Match Up Worker Relationship Specialty Start Date End Date Stefani Banda APRN [facility] [address] [place] [address] PCP - General 12/09/10 01/11/19 documented as of this encounter
--- OUTSIDE RECORDS SUMMARY | 2024-01-14 15:01 | XMS_ITS | Encounter Summary ---
Author Organization [facility] Address [address] [place] [address] Care Team Providers Care Machine Heel Seat Fitter Name Role Phone Unknown, Provider Primary Care Provider + [phone] Encounter Details Date Type Department Care Team (Late st Contact Info) Description 05/06/2015 Results Only [facility] [phone] Josue Barlow MD [address] [place] [address] Social History Tobacco Use Types Packs/Day Years [...] Diagnosis Comments PAP TEST- RESULT ONLY Routine 05/06/2015 0:00 EST documented in this encounter Results * PAP TEST- RESULT ONLY (05/06/2015 0:00 EST) Pathology Report: CYTOPATHOLOGY REPORT Reports generated via electronic interface contain original data; however they are lacking the format of the original report. Caution should be taken when reading/interpreti ng unformatted reports. Name: ? PREETI CAMPBELL ? Accession #: ? [id number] : ? 1985 (Age: 30) ??F ?Collect Date: ? 05/06/2015 Location: ? [facility] ? Receive Date: ? 05/07/2015 Provider: ?JOSUE BARLOW MD Copy to: ? Specimen/Source: ?Pap Test, Cervix/Endocervix, ThinPrep Imaging System with manual evaluation Last Menstrual Period: ? Other: ? Additional clinical information: 2013 Pap neg, neg pap hx , no Gardisil vacc. ? SPECIMEN ADEQUACY ? Satisfactory for Evaluation - transformation zone component present GENERAL CATEGORIZATION ? Negative for Intraepithelial Lesion or Malignancy ? Document reviewed and electronically signed by: ? DERECK Velásquez(ASCP) ? Report Date: ??05/14/2015 12:36 End of Report [facility] 05/06/2015 05/07/2015 Josue Barlow MD PATHOLOGY ORDERABLES [facility] [address] [place] [address] documented in this encounter Visit Diagnoses Not on filedocumented in this encounter Care Teams Machine Heel Seat Fitter Relationship Specialty Start Date End Date Unknown, Provider, PCP - General 12/11/10 documented as of this encounter
--- OUTSIDE RECORDS SUMMARY | 2024-01-14 15:01 | XMS_ITS | Encounter Summary ---
Author Organization [facility] Address [facility] [place] [address] Care Team Providers Care Typesetter Perforator Operator Name Role Phone Kelley Martin APRN Primary Care Provider Reason for Visit * Reason Comments Ultrasound * Consultation (Routine) - Specialty Diagnoses / Procedures Referred By Contac t Referred To Contact Obstetrics and Gynecology Diagnoses Encounter for supervision of normal , unspecified, unspecified trimester pt and FOB CF carrier Martha Duncan CNM [address] [place] [address] [facility] [employer] [address] [place] [address] Referral ID Status Reason Start Date Expiration Date V isits Requested Visits Authorized [id number] Consult, Test & Treat Connection [facility] PCP Updated and/or Approved 01/12/2019 01/12/2020 6 6 Encounter Details Date Type Department Care Team (Latest Contact Info) Description 03/06/2019 12:00 PM EST Procedure visit Obstetrics [place] [address] Rukhsana Terrazas MD [facility] [address] [place] [address] Cystic fibrosis carrier; Cigarette nicotine dependence in remission Social History Tobacco Use Types Packs/Day Years [...] Pressure 114/58 03/06/2019 9:48 AM EST Pulse - - Temperature - - Respiratory Rate - - Oxygen Saturation - - Inhaled Oxygen Concentration - - Weight 83.5 kg (184 lb 1.6 oz) 03/06/2019 9:48 A M EST Height - - Body Mass Index 28.83 05/01/2016 10:48 AM EST documented in this encounter Progress Notes * Rukhsana Terrazas MD - 03/06/2019 12:00 PM EST Maternal Medicine Consult Note Preeti Campbell is a 33 y.o. with an MARA of 08/04/19 who is at 18w3d gestation by early ultrasound. She is seen in consultation at the request of Martha Duncan CNM for evaluation of carrier status for cystic fibrosis. She was seen today for maternal- medicine consultation, genetic counseling and ultrasound evaluation. The patient reports that this has been uncomplicated to date. She had cell free DNA testing this low risk for trisomy 21, 18 and 13. SMA testing was low risk. 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 They declined testingthe prior and have an unaffected child. Record Review No additional issues Past Medical History: Diagnosis Date ??? Cystic fibrosis gene carrier ??? Hypothyroidism ??? Migraines History reviewed. No pertinent surgical history. OB History Para Term AB Living 2 1 1 0 0 1 SAB TAB Ectopic Multiple Live Births 0 0 0 0 1 # Outcome Date GA Lbr Harry/2nd Weight Sex Delivery Anes PTL Lv 2 Current 1 Term 04/16/11 42w0d 3.629 kg (8 lb) F Vag-Spont JEROME A family history was obtained. The father of the baby has second cousins with cystic fibrosis. There is no other history of structural abnormalities, inheritable disease, learning disability,intellectual disability, epilepsy, or repetitive loss. The ethnic backgrounds do not suggest a significantly increased genetic risk. 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 vit/iron fum/folic ac ( 1+1 ORAL) Take by mouth. ??? levothyroxine (SYNTHROID) 125 mcg Tablet Take 125 mcg by mouth daily. ??? acetaminophen (TYLENOL) 80 mg chewable tablet Take 80 mg by mouth every 4 hours as needed. Reported on 05/01/2016 No current facility-administered medications for this visit. Allergies Allergen Reactions ??? Penicillins ??? Sulfa (Sulfonamide Antibiotics) Review of Systems Constitutional: generally well Eyes: negative Ears Nose Throat:negative Respiratory: no cough, shortness of breath, or wheezing Cardiac: negative Gastrointestinal: Normal bowel movements, denies hematochezia, melena or pain. Genitourinary: Negative for dysuria Musculoskeletal: negative Skin: negative Psychiatric: Negative for anxiety, depression Endocrine:negative Contractions: none Leaking: none Bleeding: none Ultrasound Growth appropriate for gestational age EGA 18 4/7 weeks Amniotic fluid volume normal Placenta posterior Presentation breech Morphology: No structural abnormality or marker for aneuploidy. The bowel is not echogenic Physical Exam Most Recent Vitals: 03/06/19 0948 BP: 114/58 General: alert, well appearing, in no apparent distress HEENT: normocephalic, atraumatic Extremities: normal Neurologic:alert, oriented, normal speech Abdomen: abdomen is soft without significant tenderness Psychiatric: affect is appropriate. Uterine Size: consistent with dates Assessment and Recommendations: 33 y.o. at 18w3d weeks gestation. The is at 25% risk of being affected by cystic fibrosis. 50% of their children will carrythe cystic fibrosis gene mutation. There is no evidence today to suggest cystic fibrosis although ultrasound is a poor screening tool. I offered amniocentesis for definitive testing which she declined. Her rn transition is aware of the cystic fibrosis risk. The combination of the low risk cell free DNA test and today's ultrasound make aneuploidy very unlikely. I applauded her success at stopping smoking and encouraged her doing everything she could not to relapse after delivery. I appreciate the opportunity to be involved in this patient's care and am available if further questions should arise. 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
--- OUTSIDE RECORDS SUMMARY | 2024-01-14 15:01 | XMS_ITS | Encounter Summary ---
Author [facility] [place] [address] Care Team Providers Care Extrusion Former Name Role Phone Stefani Banda APRN Primary Care Provider [phone] Encounter Details Date Type Department Care Team (Late st Contact Info) Description 11/06/2014 Orders [place] [address] Lloyd Tineo MD [facility] [place] [address] Paramjit's thyroiditis Social History Tobacco Use Types [...] thyroiditis documented in this encounter Care Teams Extrusion Former Relationship Specialty Start Date End Date Stefani Banda APRN [facility] [address] [place], [place] [id number] PCP - General 12/09/10 01/11/19 documented as of this encounter
--- OUTSIDE RECORDS SUMMARY | 2024-01-14 15:01 | XMS_ITS | Clinical Summary ---
Author Organization [facility] Address [address] [place] [address] Care Team Providers Care Appraiser Auditor Name Role Phone Unknown, Provider Primary Care Provider + [phone] Social History Tobacco Use Types Packs/Day Years Used Date Smoking Tobacco: Never Assessed Sex and Gender Information Value Date Recorded Sex Assigned at Not on file Gender Identity Not on file Sexual Orientation Not on file Plan of Treatment Health Maintenance Due Date Last Done Comments Hepatitis C Screen 1985 Hepatitis B Vaccine (1 of 3 - 19+ 3-dose series) 05/03 COVID-19 Vaccine ( season) 2022 Care Teams Appraiser Auditor Relationship Specialty Start Date End Date Unknown, Provider, PCP - General 12/11/10
--- OUTSIDE RECORDS SUMMARY | 2024-01-14 15:01 | XMS_ITS | Encounter Summary ---
Author Organization [facility] [place] [address] Care Team Providers Care Dough Cutting Machine Operator Name Role Phone Stefani Banda MANAGER EDITORIAL Primary Care Provider [phone] Reason for Visit * Reason Comments Thyroid Nodule Encounter Details Date Type Department Care Team (Late st Contact Info) Description 10/02/2014 8:30 AM EDT Office Visit [place] [id number] Patricia Cesar MD [facility] [place] [address] Other specified hypothyroidism; Hadley's thyroiditis Discharge Disposition: Home Social History Tobacco [...] Sign Reading Time Taken Comments Blood Pressure 124/79 10/02/2014 7:55 AM EDT Pulse 71 10/02/2014 7:55 AM EDT Temperature - - Respiratory Rate - - Oxygen Saturation - - Inhaled Oxygen Concentration - - Weight 85.1 kg (187 lb 9.6 oz) 10/02/2014 7:55 A M EDT Height 170.2 cm (5' 7) 10/02/2014 7:55 AM EDT Body Mass Index 29.38 10/02/2014 7:55 AM EDT documented in this encounter Progress Notes * Patricia Cesar MD - 10/02/2014 5:11 PM EDT I saw this patient with Dr Tineo . I reviewed the de souza portions of the history and physical exam, andreviewed pertinent lab data. I answered all patient questions. I was involved in all medical decision making and agree with this plan. In brief, this young woman noted a lump on the left side of her neck a few cm under the jawline. During the evaluation, an abnormal thyroid gland was noted. I reviewed the ultrasound which showed a very heterogenous gland with pseudonodules but no well defined nodules, most notable for a very thickisthmus. This is consistent with hadley's thyroiditis. Her TSH is elevated above 10 and her freeT4 is at the bottom of the normal range. Her T3 is in th elower half of normal - it is typical thatwith TSH stimulation, relatively more T3 is produced from T . It is most likely that this represents a gland sturggling to produce thyroid hormone and one consequence of persistent TSH excess is enlar gement. To prevent an obvious goiter and to address non specific symptoms that might be related to hypothyroidism such as fatigue , weight gain and constipation, we recommended starting thyroid hormone with the goal of producing a TSH of 0.5 to 2.0 uU/mL. * Lloyd Tineo MD - 10/02/2014 3:02 PM EDT New Patient Endocrinology Evaluation Referring Provider: Vincent Smith MD Reason for Evaluation: Thyroid nodule HPI This is a 29 y/o female who presents to the clinic today for evaluation of thyroid nodule. Past medical history is significant for cystic fibrosis trait. Patient noticed a lump on the left side of her neck 2 months ago. It was nontender and easily palpatable. she went to the ED, and was told that was a thyroid nodule. She went to see her PCP, who ordered an ultrasound of thyroid, which showed heterogeneous nodular appearance of both thyroid lobes,which is consistent with multinodular goiter. The TFT was checked by the primary care recently. TSHwas 10.49 and free T4 was 0.88 in August 2014. Patient complains about constipation, significant coldintolerance, fatigue, hair thinning, dry skin and a weight gain of 4 pounds in one month. She denies swelling, change in her voice or vision, change in her menses. She has no significant family history of thyroid disease or autoimmune disease. Denies radiation exposure in the neck area. Patient is concerned about the lump in her neck. Past Medical History Past Medical History Diagnosis Date ??? Cystic fibrosis gene carrier Past Surgical History No past surgical history on file. Current Medications MONO-LINYAH 0.25-35 mg-mcg Tablet; acetaminophen (TYLENOL) 80 mg chewable tablet Social History History Social History ??? Marital Status: Single Spouse Name: Sanchez Maravilla Number of Children: 0 ??? Years of Education: N/A Occupational History ??? Not on file. Social History Main Topics ??? Smoking status: Former Smoker -- 0.50 packs/day Types: Cigarettes Quit date: 08/02/2014 ??? Smokeless tobacco: Never Used ??? Alcohol Use: No ??? Drug Use: No ??? Sexual Activity: Partners: Male Other Topics Concern ??? Not on file Social History Narrative Family History Family History Problem Relation Age of Onset ??? Rheumatoid Arthritis Mother Review of Systems 12 point review of system was negative except for stated above in history of present illness. Physical Examination BP 124/79 Pulse 71 Ht 170.2 cm (5' 7) Wt 85.095 kg (187 lb 9.6 oz) BMI 29.38 kg/m2 Appearance: Alert awake oriented ??3, 19 acute distress wt Change: Recent weight gain, mild HEENT: Pupils equal round reactive to light Neck: 1 cm lump in left upper neck, mobile, rubbery, not connected to thyroid. Thyroid exam normal,no thyroid nodule appreciated. Ext: no pitting edema, reflexes normal. No hand tremors. Labs: August 24, 2014 TSH 10.49 Free T4 0.88 Thyroid ultrasound, by [facility], dated September 26, 2014: There is markedly heterogeneous nodular appearance of both thyroid lobes. Findings are consistent with multinodular goiter. The right thyroid lobe measures 18 x 15 x 47 mm and left thyroid lobe measures 16 x 17 x 51 mm with thyroid isthmus thickness measured at 7mm. Conclusion: Findings consistent with multinodular goiter. Assessment This is a 29 years old female with no significant past medical history presented to the clinic today for evaluation of a lump in her neck which was incidentally found by herself. She subsequently went through TFT and thyroid ultrasound in the local hospital, was found to have a normal free T4 at 0.88 and an elevated TSH at 10.49, as well as a multinodular goiter in the ultrasound. A thyroid ultrasound was performed in the office by myself today, which showed heterogeneous nodular appearance of the thyroid. There was no obvious thyroid nodule identified. The appearance is consistent with Hadley thyroiditis. I also took a look at the lump in the left upper neck. The lump isnot connected with thyroid gland. It's hypoechoic, with no blood vessel inside, consistent with a lipoma. Patient has a lot of symptoms indicating hypothyroidism, although her lab work is in subclinical hypothyroidism range. The thyroid ultrasound did not show any thyroid nodule but is consistent with Hadley's thyroiditis. With her clinical symptoms, labs and ultrasound findings, checking the anti- thyroid antibody TPO is not going to change the recommendation. Patient might benefit from thyroid ho rmone supplement at this point. Will start weight-based dosing, with 1.5 mcg/kg. Recommendations 1. Start Synthroid 112 ??g every morning. 2. Check TSH in 2 weeks before next visit. 3. No need to check TPO for now. 4. Return to the clinic for follow-up in 2 months. Plan of care has been discussed with attending physician, Dr Arsenio MD, Department of Endocrinology Lloyd Tineo MD Endocrine Fellow Pager [phone] documented in this encounter Miscellaneous Notes * Addendum Note - Patricia Cesar MD - 10/02/2014 5:23 PM EDTAddended by: PATRICIA CESAR on: 10/02/2014 05:23 PM Modules accepted: Orders, Level of Service documented in this encounter Plan of Treatment Not on file documented as of this encounter Visit Diagnoses Diagnosis Other specified hypothyroidism Hadley's thyroiditis Chronic lymphocytic thyroiditis documented in this encounter Care Teams Dough Cutting Machine Operator Relationship Specialty Start Date End Date Stefani Banda MANAGER EDITORIAL [facility] [address] [place] [address] PCP - General 12/09/10 01/11/19 documented as of this encounter
== END 2024-01-14 15:00 | disposition home or self-care (01) ==
LOC: NCHCN 14:59
PROVIDERS: PCP Nurse Practitioner Family; Visit Provider Nurse Practitioner Family
DX: Z11.51 Encounter for screening for human papillomavirus (HPV) (principal); Z01.419 Encounter for gynecological examination (general) (routine) without abnormal findings
CPT/HCPCS: 88142; 87624

== ENCOUNTER 2024-02-10 07:41 | Emergency (ER) | payer OTHER, SELFPAY ==
[2024-02-10 07:44] VITALS: BP 153/81; PULSE 81; RESP 16; TEMP 36.6; O2SAT 96
[2024-02-10 07:48] VITALS: BP 153/81; PULSE 81; RESP 16; TEMP 36.6; O2SAT 96
--- OUTSIDE RECORDS SUMMARY | 2024-02-10 07:49 | XMS_ITS | Encounter Summary ---
Author Organization [facility] [place] [address] Care Team Providers Care [employer] Dean Name Role Phone Stefani Banda APRN Primary Care Provider [phone] Encounter Details Date Type Department Care Team (Late st Contact Info) Description 09/26/2014 [place] [id number] Stefani Banda APRN [facility] [address] [place], [place] [address] Social History Tobacco Use Types Packs/Day Years [...] on filedocumented in this encounter Care Teams [employer] Dean Relationship Specialty Start Date End Date Stefani Banda APRN [facility] [address] [place] [address] PCP - General 12/09/10 01/11/19 documented as of this encounter
--- OUTSIDE RECORDS SUMMARY | 2024-02-10 07:49 | XMS_ITS | Encounter Summary ---
Author Organization [facility] [place] [address] Care Team Providers Care Shelter Monitor Name Role Phone Kelley Martin APRN Primary Care Provider [phone] Reason for Visit * Reason Comments Medication Refill Encounter Details Date Type Department Care Team (Late st Contact Info) Description 09/27/2015 [place] [address] Calvin Cesar MD [facility] [place] [address] Other specified hypothyroidism Social History Tobacco Use [...] hypothyroidism documented in this encounter Care Teams Shelter Monitor Relationship Specialty Start Date End Date Kelley Martin APRN [address] [place] [address] PCP - General Family Medicine 01/12/19 06/24/22 documented as of this encounter
--- OUTSIDE RECORDS SUMMARY | 2024-02-10 07:49 | XMS_ITS | Encounter Summary ---
Author Organization [facility] Address [facility] [place] [address] Care Team Providers Care Dry Chain Operator Name Role Phone Stefani Banda LAB AIDE Primary Care Provider [phone] Reason for Visit * Reason Comments Positive Genetic Carrier Screen Ultrasound Encounter Details Date Type Department Care Team (Late st Contact Info) Description 12/16/2010 10:30 AM EDT Office Visit [place] [id number] Pedro Rodriguez MD [facility] OBSTETRICS [place] [address] Cystic fibrosis gene carrier; Social History Tobacco [...] Dispense Refill ? ? vitamin 27 & [id number] 60 mg (Iron)-1 mg tablet Take 1 [...] incidental documented in this encounter Care Teams Dry Chain Operator Relationship Specialty Start Date End Date Stefani Banda APRN [facility] [address] [place] [address] PCP - General 12/09/10 01/11/19 documented as of this encounter
--- OUTSIDE RECORDS SUMMARY | 2024-02-10 07:49 | XMS_ITS | Encounter Summary ---
Author Organization [facility] [place] [address] Care Team Providers Care Fire Safety Manager Name Role Phone Kelley Martin APRN Primary Care Provider [phone] Reason for Visit * Reason Onset Date Comments Advice Only 08/10/2019 Encounter Details Date Type Department Care Team (Late st Contact Info) Description 08/10/2019 Telephone Obstetrics [place] [phone] [facility] [place] [address] Advice Only Social History Tobacco Use Types [...] Notes * Telephone Encounter - Prabhjot Villa, [facility] - 08/10/2019 10:13 AM EDT Genetic Counseling Telephone Note Returned phone call from Dr. Soto, digital manager at [facility]. Peytons baby has been born, and [...] on filedocumented in this encounter Care Teams Fire Safety Manager Relationship Specialty Start Date End Date Kelley Martin, COMMUNICATIONS ENGINEER [address] [place] [address] PCP - General Family Medicine 01/12/19 06/24/22 documented as of this encounter
--- OUTSIDE RECORDS SUMMARY | 2024-02-10 07:49 | XMS_ITS | Encounter Summary ---
Author Organization [facility] [address] [place] [address] Care Team Providers Care Supervisor Cigarette Making Department Name Role Phone Stefani Banda Briseyda OSEI Primary Care Provider [phone] Reason for Visit * Reason Comments Positive Genetic Carrier Screen cystic f ibrosis dleta F508 Encounter Details Date Type Department Care Team (Late st Contact Info) Description 12/16/2010 9:00 AM EDT Office Visit [address] [address] Susan Khalil [facility] OBSTETRICS & [place] [address] Cystic fibrosis gene carrier (Primary Dx); Famil [...] known genetic conditions. Consanguinity denied.Preeti is of [place] decent and Sanchez is of [facility] dece. Sanchez's mother spoke of one of [...] to meet with the CF clinic at [facility] for a thorough discussion of the range of symptoms and disease management. If it is determined that the fetus is affected they would probably pursue gathering further information, but decline at this point. They were given Karen Westbrook's (the CF nurse coordinator) phone number as a menswear salesperson if needed. They were also ok with us sharing their name with the CF clinic. We reviewed the benefits, risks, and limitations of the options for additional screening and testing, which includeamniocentesis, ultrasound and screening. Preeti declined amniocentesis. Thecouple shared that theywould not consider termination for CF. We also discussed the inclusion of CF on the [place], [place] [facility], and the risk for CF [...] complication documented in this encounter Care Teams Supervisor Cigarette Making Department Relationship Specialty Start Date End Date Stefani Banda APRN [facility] [address] [place] [address] PCP - General 12/09/10 01/11/19 documented as of this encounter
--- OUTSIDE RECORDS SUMMARY | 2024-02-10 07:49 | XMS_ITS | Clinical Summary ---
Author Organization [facility] Address [facility] [place] [address] Care Team Providers Care Staff Radiologist Name Role Phone Deb Haas APRN Primary Care Provider [phone] Allergies Active Allergy Reactions Criticality Noted Date [...] PAP Smear 2017 Covid-19 Vaccine (1 - 2023- season) 2023 Influenza (Flu) vaccine (1 o f 1 - Influenza standard series) 11/21/2023 Care Teams Staff Radiologist Relationship Specialty Start Date End Date Deb Haas, PRINCIPAL INVESTIGATOR [place] [address] PCP - General Family Medicine 06/25/22
--- OUTSIDE RECORDS SUMMARY | 2024-02-10 07:49 | XMS_ITS | Encounter Summary ---
Author Organization On License Of [facility] Address [facility] [place] [address] Care Team Providers Care Respite Coordinator Name Role Phone Deb Haas APRN Primary Care Provider [phone] Reason for Visit * Consultation (Routine) - Closed Specialty Diagnoses / Procedures Referred By Contac t Referred To Contact Hematology and Oncology Diagnoses Factor VIII deficiency Deb Haas APRN [address] [place] [address] [facility] Hem Onc [address] [place] [address] Referral ID Status Reason Start Date Expiration Date V isits Requested Visits Authorized [id number] Closed Consult, Test & Treat PCP Updated and/or Approved 06/25/2022 06/25/2023 12 12 Encounter Details Date Type Department Care Team (Latest Contact Info) Description 10/13/2022 10:00 AM EDT TH Visit (TeleHealth) [place] [address] Guillermina Martinez MD [facility] DR HEMATOLOGY [place] [address] Yamileth Duggan, supervisor fish processing history of stroke; Family history of factor [...] 12/16/2010 FAMILY HISTORY As above 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 She should have a routine check of [...] VTE as well as arterial disease e.g. stroke/ID Preeti Campbell had the opportunity to ask [...] diseases documented in this encounter Care Teams Respite Coordinator Relationship Specialty Start Date End Date [place] [address] PCP - General Family Medicine 06/25/22 documented as of this encounter
--- OUTSIDE RECORDS SUMMARY | 2024-02-10 07:49 | XMS_ITS | Encounter Summary ---
Author Organization Formerly [facility] [place] [address] Care Team Providers Care Digital Content Manager Name Role Phone Stefani Banda PROGRAM AIDE GROUP WORK Primary Care Provider [phone] Reason for Visit * Reason Comments Thyroid Nodule Encounter Details Date Type Department Care Team (Late st Contact Info) Description 10/02/2014 8:30 AM EDT Office Visit [place] [address] Patricia Cesar MD [facility] [place] [address] Other specified hypothyroidism; Hadley's thyroiditis Discharge Disposition: [...] ??? Marital Status: Single Spouse Name: Sanchez Maravilal Number of Children: 0 ??? Years of [...] 10.49 Free T4 0.88 Thyroid ultrasound, by [facility], dated September 26, 2014: There is [...] Endocrinology Lloyd Tineo MD Endocrine Fellow Pager [phone] documented in this encounter Miscellaneous Notes * Addendum Note - Patricia Cesar MD - 10/02/2014 5:23 PM EDTAddended by: PATRICIA CESAR on: 10/02/2014 05:23 PM Modules accepted: Orders, Level of Service documented in this encounter Plan of Treatment Not on file documented as of this encounter Visit Diagnoses Diagnosis Other specified hypothyroidism Hadley's thyroiditis Chronic lymphocytic thyroiditis documented in this encounter Care Teams Digital Content Manager Relationship Specialty Start Date End Date Stefani Banda PROGRAM AIDE GROUP WORK [facility] [address] [place] [address] PCP - General 12/09/10 01/11/19 documented as of this encounter
--- OUTSIDE RECORDS SUMMARY | 2024-02-10 07:49 | XMS_ITS | Encounter Summary ---
Author Organization [facility] Address [address] [place] [address] Care Team Providers Care Center Machine Operator Name Role Phone Unavailable Primary Care Provider Unavailabl e Encounter Details Date Type Department Care Team (Late st Contact Info) Description 09/02/2010 Results Only [facility] - [facility] ([facility]) [address] [place], [place] [address] Martha Duncan [address] [place], [place] [id number] Social History Tobacco Use Types Packs/Day Years Used Date Smoking Tobacco: Never Assessed Comments Unknown Sex and Gender Information Value Date Recorded Sex Assigned at Not on file Legal Sex Female 17:48 EST Gender Identity Not on file Sexual Orientation [...] reading/interpreti ng unformatted reports. ? Name: ? JIA PREETI L ? Accession #: ? [id number] ? : ? 1985 (Age: 25) ??F ?Collect Date: ? 09/02/2010 ? Location: ? [facility] ? Receive Date: ? 09/03/2010 ? Provider: ANEA LELONG CNM ? Copy to: ELYSSA BERRIAN MD ? Final Report ? SPECIMEN ADEQUACY ? Satisfactory for Evaluation ? - transformation zone component present ? GENERAL CATEGORIZATION ? Negative for Intraepithelial Lesion or Malignancy ? Last Menstural Period: 4/5/11 ? Menstural/Pregnanc y Status: ? Other: Additional clinical information: 1st pap smear ? Specimen/Source: ??Pap Test, Cervix/Endocervix, ThinPrep Imaging System with ? manual evaluation ? Document reviewed and electronically signed by: ? Estefania Goodland, CT(ASCP) ? Report ??Date: 09/09/2010 14:50 ? [...] of Report ? KAR PETERSON 09/02/2010 09/03/2010 us Martha Duncan CNM PATHOLOGY ORDERABLES Final Resul t KAR PETERSON [address] [place] [address] documented in this encounter Visit Diagnoses Not on filedocumented in this encounter
--- OUTSIDE RECORDS SUMMARY | 2024-02-10 07:49 | XMS_ITS | Encounter Summary ---
Author Organization [facility] Address [address] [place] [address] Care Team Providers Care Machine Stapler Name Role Phone Unknown, Provider Primary Care Provider Unava ilable Encounter Details Date Type Department Care Team (Late st Contact Info) Description 08/09/2019 Lab Requisition [facility] Pathology & Laboratory Medicine - [facility] [address] [place], [place] [address] Outr Resulting Lab, Provider Social History Tobacco [...] Unknown 08/09/2019 3:25 EDT 08/09/2019 15:17 EDT us Provider Outr Resulting Lab MICROBIOLOGY - GENER AL ORDERABLES Final Result [facility] [address] [place] [address] * COVID-19 TESTING (08/09/2019 3:25 EDT) COVID-19 rt-PCR Result Negative Negative 08/09/2019 19:39 EDT [facility] Comment: This test has not [...] history, and epidemiological information. Performed on the Earlier Media Fusion instrument Performing Lab [place] [facility] Lab 08/09/2019 19:39 EDT [facility] Swab ENTIRE NASOPHARYNX / Unknown 08/09/2019 3:25 EDT 08/09/2019 15:17 EDT us Provider Outr Resulting Lab MICROBIOLOGY - GENER AL ORDERABLES Final Result [facility] [address] [place] [address] documented in this encounter Visit Diagnoses Not on filedocumented in this encounter Care Teams Machine Stapler Relationship Specialty Start Date End Date Unknown, Provider, PCP - General 12/11/10 documented as of this encounter
--- OUTSIDE RECORDS SUMMARY | 2024-02-10 07:49 | XMS_ITS | Encounter Summary ---
Author [facility] [place] [address] Care Team Providers Care Gym Supervisor Name Role Phone Stefani Banda APRN Primary Care Provider [phone] Encounter Details Date Type Department Care Team (Late st Contact Info) Description 11/06/2014 Orders [place] [address] Lloyd iTneo MD [facility] [place] [address] Paramjit's thyroiditis Social History Tobacco Use Types [...] thyroiditis documented in this encounter Care Teams Gym Supervisor Relationship Specialty Start Date End Date Stefani Banda APRN [facility] [address] [place], [place] [id number] PCP - General 12/09/10 01/11/19 documented as of this encounter
--- OUTSIDE RECORDS SUMMARY | 2024-02-10 07:49 | XMS_ITS | Encounter Summary ---
Author Organization [facility] Address [facility] [place] [address] Care Team Providers Care Inventory Technician Name Role Phone Stefani Banda APRN Primary Care Provider [phone]- [phone] Encounter Details Date Type Department Care Team (Latest Contact Info) Description 12/16/2010 9:23 AM EDT - 12/16/2010 11:59 PM EDT Hospital En[place] [address] CLINIC, Pedro Ramos MD [facility] OBSTETR[place] [address] Discharge Disposition: Home Social History Tobacco Use [...] needed. Reported on 05/01/2016 vitamin 27 & [id number]-AF 60 mg (Iron)-1 mg tablet Take 1 [...] Final 12/16/2010 10:40 am) Patient Info ID: ?[id number] ?: ??[birth year] (25 yrs) Name: ?PREETI Cook ?Visit Date: 12/16/2010 10:01 am ?JIA Performed By Performed By: ?? LILY Vargas ??Rachna Attending: ?Michael GUTIERREZ E ??Malena Referred By: ?CESAR WADE [facility] Accession#: ? [id number] Procedures [facility] - Targeted Morphology - Genetics - ? [id number] Indications Patient and FOB CF carriers Evaluation [...] Tract: ?Visualized L Outflow Tract: ?Visualized Cardiac [place]: ? Visualized Diaphragm: ?Visualized Abdomen Ventral Wall: [...] Final 12/16/2010 10:40 am) Patient Info ID: [id number] : [birth year] (25 yrs) Name: PREETI Cook Visit Date: 12/16/2010 10:01 am [facility] Performed By Performed By: LILY Vargas Attending: Pedro Rodriguez MD Referred By: CESAR WADE [facility] Procedures [facility] - Targeted Morphology - Genetics - [id number] Indications Patient and FOB CF carriers Evaluation [...] Tract: Visualized L Outflow Tract: Visualized Cardiac [place]: Visualized Diaphragm: Visualized Abdomen Ventral Wall: Visualized [...] on filedocumented in this encounter Care Teams Inventory Technician Relationship Specialty Start Date End Date Stefani Banda APRN [facility] [address] [place] [address] PCP - General 12/09/10 01/11/19 documented as of this encounter
--- OUTSIDE RECORDS SUMMARY | 2024-02-10 07:49 | XMS_ITS | Encounter Summary ---
Author Organization [facility] [place] [address] Care Team Providers Care Water Service Supervisor Name Role Phone Kelley Martin APRN Primary Care Provider [phone] Reason for Visit * Reason Onset Date Comments Medical Care Coordination 06/05/2019 Encounter Details Date Type Department Care Team (Late st Contact Info) Description 06/05/2019 Telephone Obstetrics [place] [address] [facility] [place] [address] Medical Care Coordination Social History Tobacco Use [...] Notes * Telephone Encounter - Prabhjot Villa [facility] - 06/05/2019 10:26 AM EDT Genetic Counseling [...] parents are known carriers. I contacted Preeti's tar boiler, Martha Duncan, with this information. She is able to help facilitate cystic fibrosis testing. I sent her an email with information about [facility] familial mutation testing (test ID: [id number]). Whole [...] on filedocumented in this encounter Care Teams Water Service Supervisor Relationship Specialty Start Date End Date Kelley Martin APRN [address] [place] [address] PCP - General Family Medicine 01/12/19 06/24/22 documented as of this encounter
--- OUTSIDE RECORDS SUMMARY | 2024-02-10 07:49 | XMS_ITS | Encounter Summary ---
Author Organization [facility] [place] [address] Care Team Providers Care Correctional Program Officer Name Role Phone Stefani Banda APRN Primary Care Provider [phone] Reason for Visit * Reason Comments Hypothyroidism Encounter Details Date Type Department Care Team (Late st Contact Info) Description 05/01/2016 10:30 AM EST Office [place] [address] Lloyd Tineo MD [facility] [place] [address] Paramjit's thyroiditis Social History Tobacco Use Types [...] Obtain her TFT in Jan 2016 from [facility] in [facility] - Her pre-/first trimester TSH goal [...] thyroiditis documented in this encounter Care Teams Correctional Program Officer Relationship Specialty Start Date End Date Stefani Banda APRN [facility] [address] [place] [address] PCP - General 12/09/10 01/11/19 documented as of this encounter
--- OUTSIDE RECORDS SUMMARY | 2024-02-10 07:49 | XMS_ITS | Encounter Summary ---
[place] [address] Care Team Providers Care Mixing Engineer Name Role Phone Deb Haas APRN Primary Care Provider [phone] Reason for Referral * Consultation (Routine) - Closed Specialty Diagnoses / Procedures Referred By Contkierra t Referred To Contact Hematology and Oncology Diagnoses Factor VIII deficiency Deb Haas APRN [address] [place] [address] [facility] Hem Onc [address] [place] [address] Referral ID Status Reason Start Date Expiration Date V isits Requested Visits Authorized [id number] Closed Consult, Test & Treat PCP Updated and/or Approved 06/25/2022 06/25/2023 12 12 Encounter Details Date Type Department Care Team (Latest Contact Info) Description 06/25/2022 Transcribe Orders eDH Incoming Referrals [phone] Deb Haas APRN [address] [place] [address] Factor VIII deficiency Social History [...] disorder documented in this encounter Care Teams Mixing Engineer Relationship Specialty Start Date End Date Deb Haas, MANAGER QA [address] [place] [address] PCP - General Family Medicine 06/25/22 documented as of this encounter
--- OUTSIDE RECORDS SUMMARY | 2024-02-10 07:49 | XMS_ITS | Encounter Summary ---
[place] [address] Care Team Providers Care Pipe Recovery Specialist Name Role Phone Stefani Banda FARNAZ Primary Care Provider [phone] Reason for Visit * Reason Onset Date Comments Prior Authorization 12/30/2015 Encounter Details Date Type Department Care Team (Late st Contact Info) Description 12/30/2015 Telephone [place] [address] Tom Valladares Prior Authorization Social History Tobacco [...] daily Rationale for request: HYPOTHYROIDISM Health plan: [place] Authorizing event marketing representative name: TOM Faxed to health plan on: 12/30/15 Health plan decision: APPROVED Quantity approved: Authorization number: [id number] Start date: 12/30/15 End date: 12/29/16 Patient notified? YES Pharmacy notified? YES documented in this encounter Plan of Treatment Not on file documented as of this encounter Visit Diagnoses Not on filedocumented in this encounter Care Teams Pipe Recovery Specialist Relationship Specialty Start Date End Date Stefani Banda APRN [facility] [address] [place] [address] PCP - General 12/09/10 01/11/19 documented as of this encounter
--- OUTSIDE RECORDS SUMMARY | 2024-02-10 07:49 | XMS_ITS | Encounter Summary ---
Author Organization [facility] [place] [address] Care Team Providers Care Eco Industrial Development Consultant Name Role Phone Stefani Banda DIRECTOR RADIO NEWS Primary Care Provider [phone] Reason for Visit * Reason Comments Hypothyroidism Encounter Details Date Type Department Care Team (Late st Contact Info) Description 12/06/2014 11:00 AM EDT Office [place] [address] Lloyd Tineo MD [facility] [place] [address] Acquired hypothyroidism; Paramjit's thyroiditis Discharge Disposition: Home [...] thyroiditis documented in this encounter Care Teams Eco Industrial Development Consultant Relationship Specialty Start Date End Date Stefani Banda APRN [facility] [address] [place] [address] PCP - General 12/09/10 01/11/19 documented as of this encounter
--- OUTSIDE RECORDS SUMMARY | 2024-02-10 07:49 | XMS_ITS | Encounter Summary ---
[place] [address] Care Team Providers Care Property Insurance Claims Examiner Name Role Phone Stefani Banda APRN Primary Care Provider [phone] Encounter Details Date Type Department Care Team (Late st Contact Info) Description 03/05/2016 Telephone [place] [address] Lloyd Tineo MD [facility] [place] [address] Social History Tobacco Use Types Packs/Day Years [...] with the results Lloyd Tineo Endocrine Fellow [phone] documented in this encounter Plan of Treatment Not on file documented as of this encounter Visit Diagnoses Not on filedocumented in this encounter Care Teams Property Insurance Claims Examiner Relationship Specialty Start Date End Date Stefani Banda APRN [facility] [address] [place] [address] PCP - General 12/09/10 01/11/19 documented as of this encounter
--- OUTSIDE RECORDS SUMMARY | 2024-02-10 07:49 | XMS_ITS | Encounter Summary ---
Author Organization [facility] [place] [address] Care Team Providers Care Strip Catcher Name Role Phone Kelley Martin APRN Primary Care Provider [phone] Encounter Details Date Type Department Care Team (Latest Contact Info) Description 03/06/2019 9:33 AM EST - 03/06/2019 11:59 PM EST Hospital [place] [address] Martha Guerrero CNM [address] [place] [address] Cystic fibrosis gene carrier Discharge Disposition: Home [...] no structural abnormalities are noted. ?Rukhsana Terrazas, Lens Polisher Electronically Signed Final Report ?? 03/06/2019 11:21 am Narrative 03/06/2019 11:21 AM EST OBSTETRICS REPORT ? (Signed Final 03/06/2019 11:21 am) PATIENT INFO: ID #: ? [id number] ?: ??[birth year] (33 yrs) Name: ? PREETI Joyce ?Visit Date: 03/06/2019 11:14 am ? JIA PERFORMED BY: Performed By: ? Smiley Wallace RDMS Attending: ?Mk GUTIERREZ, Rukhsana Gupta Referred By: ?MARTHA GUERRERO Location: ? [place] SERVICE(S) PROVIDED: ??UM - Detailed Morphology - [id number] ? [id number] INDICATIONS: ??18 weeks gestation of ?Z3A.18 ??pt [...] Arch: ? Visualized SVC: ? Visualized Cardiac [place]: ?Visualized Diaphragm: ? Visualized 3 Vessel View: [...] 03/06/2019 11:21 am) PATIENT INFO: ID #: [id number] : [birth year] (33 yrs) Name: PREETI Cook Visit Date: 03/06/2019 11:14 am JIA PERFORMED BY: Performed By: Smiley Wallace RDMS Attending: Rukhsana Terrazas MD Referred By: MARTHA GUERRERO Location: [place] SERVICE(S) PROVIDED: [facility] - Detailed Morphology - [id number] INDICATIONS: 18 weeks gestation of Z3A.18 pt [...] Visualized Ductal Arch: Visualized SVC: Visualized Cardiac [place]: Visualized Diaphragm: Visualized 3 Vessel View: Visualized [...] no structural abnormalities are noted. Rukhsana Terrazas, Lens Polisher Electronically Signed Final Report 03/06/2019 11:21 am Martha Guerrero CNM [facility] OB ORDERABLES documented in this encounter Visit Diagnoses Diagnosis Cystic fibrosis gene carrier documented in this encounter Care Teams Strip Catcher Relationship Specialty Start Date End Date Kelley Martin, YOUTH LIAISON OFFICER [address] [place] [address] PCP - General Family Medicine 01/12/19 06/24/22 documented as of this encounter
--- OUTSIDE RECORDS SUMMARY | 2024-02-10 07:49 | XMS_ITS | Encounter Summary ---
Author Organization [facility] [place] [place] [address] Care Team Providers Care Filler Picker Name Role Phone Stefani Banda Briseyda OSEI Primary Care Provider [phone] Encounter Details Date Type Department Care Team (Late st Contact Info) Description 10/23/2016 Ancillary Procedure Radiology Library at [facility] [place] [phone] Kelley Martin APRN [address] [place], [place] [address] Social History Tobacco Use Types Packs/Day Years [...] & Pelvis (10/23/2016 12:00 AM EDT) Narrative [facility] - 09/11/2019 11:23 AM EDT This exam is auto-finalizing. It's purpose is for storage only. Kelley Martin APRN [facility] FILM LIBRARY ORD ERABLES DH RAD [place], [place] documented in this encounter Visit Diagnoses Not on filedocumented in this encounter Care Teams Filler Picker Relationship Specialty Start Date End Date Stefani Banda, FARNAZ [facility] [address] [place] [address] PCP - General 12/09/10 01/11/19 documented as of this encounter
--- OUTSIDE RECORDS SUMMARY | 2024-02-10 07:49 | XMS_ITS | Referral Summary ---
Author Organization [facility] Address [address] [place] [address] Care Team Providers Care Road Roller Operator Hot Mix Name Role Phone Unknown, Provider Primary Care Provider Unava ilable Encounters Date Type Department Care Team Description 01/17/2024 Lab Requisition [facility] Pathology & Laboratory Medicine - [facility] [address] [place] [address] Deb Haas FNP Encounter for screening for human papillomavirus (HPV); Encounter for screening for malignant neoplasm of cervix; Encounter for general adult medical examination without abnormal findings from Last 3 Months Social History Tobacco Use Types Packs/Day Years Used Date Smoking Tobacco: Never Assessed Comments Unknown Sex and Gender Information Value Date Recorded Sex Assigned at Not on file Legal Sex Female 17:48 EST Gender Identity Not on file Sexual Orientation Not on file Plan of Treatment Not on file Procedures Procedure Name Priority Date/Time Associated Diagnosis Comments PAP TEST Today 01/14/2024 12:15 EDT Encounter for screening for human papillomavirus (HPV) Encounter for screening for malignant neoplasm of cervix Encounter for general adult medical examination without abnormal findings HPV DNA DETECTION WITH GENOTYPING, PCR Today 01/14/2024 12:15 EDT Encounter for screening for human papillomavirus (HPV) Encounter for screening for malignant neoplasm of cervix Encounter for general adult medical examination without abnormal findings from Last 3 Months Results * PAP TEST (01/14/2024 12:15 EDT) Specimens A. Cervix and/or Endocervix , ThinPrep Imaging System with Manual Evaluation 01/26/2024 15:16 EST [facility] Specimen Adequacy Satisfactory for Evaluation - transformation zone component present 01/26/2024 15:16 [facility] General Categorization Negative for intraepithelial lesion or malignancy 01/26/2024 15:16 [facility] Attestation . 01/26/2024 15:16 [facility] at 1516 Clinical History See below 01/26/20 15:16 [facility] Performing Lab [facility] 01/26/2024 15:16 [facility] Scanned Images 01/26/2024 15:16 [facility] HPV High Risk type 16, PCR Negative 01/26/2024 15:16 [facility] HPV High Risk type 18, PCR Negative 01/26/2024 15:16 [facility] HPV Other High Risk Types, PCR Negative The following Other High Risk HPV types were not detected: 31,33, 35, 39, 45, 51, 52, 56, 58, 59, 66 and 68. 01/26/2024 15:16 [facility] Pap Test CERVIX UTERI STRUCTURE / Unknown 01/14/2024 12:15 EDT 01/17/2024 12:29 EDT Deb Haas RED CROSS WORKER PATHOLOGY ORDERABLES Final Re sult [facility] [address] [place], [place] [id number] * HPV DNA DETECTION WITH GENOTYPING, PCR (01/14/2024 12:15 EDT) HPV High Risk type 16, PCR Negative Negative 01/26/2024 15:16 [facility] HPV High Risk type 18, PCR Negative Negative 01/26/2024 15:16 [facility] HPV other High Risk types, PCR Negative Negative 01/26/2024 15:16 [facility] Comment: The following Other High Risk HPV types were not detected: ??31,33, 35, 39, 45, 51, 52, 56, 58, 59, 66 and 68. Pap Test CERVIX UTERI STRUCTURE / Unknown 01/14/2024 12:15 EDT 01/25/2024 13:31 EST Deb Haas RED CROSS WORKER MICROBIOLOGY - GENERAL ORDERA BLES Final Result [facility] [address] [place] [address] from Last 3 Months Insurance [employer] Care Teams Road Roller Operator Hot Mix Relationship Specialty Start Date End Date Unknown, Provider, PCP - General 12/11/10
--- OUTSIDE RECORDS SUMMARY | 2024-02-10 07:49 | XMS_ITS | Encounter Summary ---
[place] [address] Care Team Providers Care Back Order Clerk Name Role Phone Stefani Banda LITIGATION PARTNER Primary Care Provider [phone]- [phone] Reason for Visit * Reason Onset Date Comments Prior Authorization 10/03/2014 Encounter Details Date Type Department Care Team (Late st Contact Info) Description 10/03/2014 Telephone [place]ocr[place] [phone] Tom Valladares Prior Authorization Social History Tobacco [...] DAILY. Rationale for request: hypothyroidism Health plan: [place] MEDICAID Authorizing outside industrial sales representative name: TOM Faxed to health plan on: 10/03/14 Health plan decision: APPROVED Quantity approved: Authorization number: [id number] Start date: 10/03/14 End date: 10/04/15 Patient notified? NO Pharmacy notified? YES documented in this encounter Plan of Treatment Not on file documented as of this encounter Visit Diagnoses Not on filedocumented in this encounter Care Teams Back Order Clerk Relationship Specialty Start Date End Date Stefani Banda APRN [facility] [address] [place] [address] PCP - General 12/09/10 01/11/19 documented as of this encounter
--- OUTSIDE RECORDS SUMMARY | 2024-02-10 07:49 | XMS_ITS | Encounter Summary ---
Author Organization [facility] Address [address] [place] [address] Care Team Providers Care Bareback Rider Name Role Phone Unknown, Provider Primary Care Provider Unava ilable Encounter Details Date Type Department Care Team (Late st Contact Info) Description 09/07/2019 Lab Requisition [facility] Pathology & Laboratory Medicine - [address] [address] Outr Resulting Lab, Provider Social History Tobacco [...] Ab >1,300(H) <=60 U/mL 2019 8:33 EDT [facility] Blood VENOUS BLOOD / Unknown 09/07/2019 12:45 EDT 09/07/2019 21:09 EDT us Provider Outr Resulting Lab CHEMISTRY & BLOOD GA S ORDERABLES Final Result [facility] [address] [place] [address] documented in this encounter Visit Diagnoses Not on filedocumented in this encounter Care Teams Bareback Rider Relationship Specialty Start Date End Date Unknown, Provider, PCP - General 12/11/10 documented as of this encounter
--- OUTSIDE RECORDS SUMMARY | 2024-02-10 07:49 | XMS_ITS | Encounter Summary ---
Author Organization [facility] [place] [place] [address] Care Team Providers Care Elevator Repairer Helper Name Role Phone Stefani Banda APRN Primary Care Provider [phone]- [phone] Reason for Visit * Reason Comments Medication Refill Encounter Details Date Type Department Care Team (Late st Contact Info) Description 09/22/2015 [place] [address] Calvin Cesar MD [facility] [place] [address] Other specified hypothyroidism Social History Tobacco Use [...] hypothyroidism documented in this encounter Care Teams Elevator Repairer Helper Relationship Specialty Start Date End Date Stefani Banda APRN [facility] [address] [place], [place] [phone] PCP - General 12/09/10 01/11/19 documented as of this encounter
--- OUTSIDE RECORDS SUMMARY | 2024-02-10 07:49 | XMS_ITS | Encounter Summary ---
Author Organization [facility] Address [address] [place] [address] Care Team Providers Care Orthotist Or Prosthetist Name Role Phone Unknown, Provider Primary Care Provider Unava ilable Encounter Details Date Type Department Care Team (Late st Contact Info) Description 11/16/2012 Results Only [facility] - [facility] [place] [address] [place] [id number] Zahra Mclaughlin, KAVON Social History Tobacco Use Types Packs/Day Years [...] ? PREETI CAMPBELL ? Accession #: ? [id number] : ? 1985 (Age: 27) ??F ?Collect Date: ? 11/16/2012 Location: ? [facility] ? Receive Date: ? 11/17/2012 Provider: ?ZAHRA MCLAUGHLIN COUNSELING CASE MANAGER Copy to: ? Specimen/Source: ?Pap Test, Cervix/Endocervix, ThinPrep Imaging System with manual evaluation Last Menstrual Period: ? 11/09/12 Hormonal/Contracep tive Status: ? Oral contraceptives ? SPECIMEN ADEQUACY ? Satisfactory for Evaluation - transformation zone component present GENERAL CATEGORIZATION ? Negative for Intraepithelial Lesion or Malignancy ? Document reviewed and electronically signed by: ? Nicole Dudley, CT(ASCP) ? Report Date: ??11/23/2012 13:33 End of Report [facility] 11/16/2012 11/17/2012 us Zahra Mclaughlin NP PATHOLOGY ORDERABLES Final Re sult [facility] [address] [place] [address] documented in this encounter Visit Diagnoses Not on filedocumented in this encounter Care Teams Orthotist Or Prosthetist Relationship Specialty Start Date End Date Unknown, Provider, PCP - General 12/11/10 documented as of this encounter
--- OUTSIDE RECORDS SUMMARY | 2024-02-10 07:49 | XMS_ITS | Encounter Summary ---
Author Organization Counts Include [facility] Address [facility] [place] [address] Care Team Providers Care Java Developer Analyst Name Role Phone Kelley Martin APRN Primary Care Provider [phone] Encounter Details Date Type Department Care Team (Latest Contact Info) Description 01/29/2020 4:48 PM EST - 01/29/2020 11:59 PM EST [place] [phone] Discharge Disposition: Home Social History Tobacco Use [...] EST) SARS-CoV-[address] Detect[address] Not Detected [facility] Comment: This result should be [...] diagnosis of COVID-19 is performed using the [employer] m SARS-CoV-2 Assay as authorized by the FDA Emergency Use Authorization (EUA). This EUA assay is intended for In-vitro Diagnostic (IVD) use with respiratory specimens such as nasopharyngeal swabs collected from individuals during the acute phase of infection. This assay is performed based on the instructions for use provided by [employer] and additional guidance provided by CDC and FDA. Testing is performed in the [facility] Laboratory within the Department of Pathology and Laboratory Medicine at [facility], certified under the Clinical [...] fact sheets at the following FDA website: https://www.fda.gov/medical-devices/jsdkvsygvab-mzemhrh-7646-rftbm-56-tblkbkbxw- use-a pcdvqrstjaizj-omzgson-zhnoicq/xofvs-uklpcpzspct-yabt SARS-CoV-[address] [facility] Specimen from nose (specimen) Other / Unknown 01/29/2020 2:56 PM EST 01/31/2020 1:09 AM EST Narrative Resulting Agency Comment Spec In Lab Roman Weathers APRN MOLECULAR ORDERABLES Performing Organization Address City/State/[facility] Co de Phone Number [facility] [place] [address] documented in this encounter Visit Diagnoses Not on filedocumented in this encounter Care Teams Java Developer Analyst Relationship Specialty Start Date End Date Kelley Martin APRN [address] [place] [address] PCP - General Family Medicine 01/12/19 06/24/22 documented as of this encounter
--- OUTSIDE RECORDS SUMMARY | 2024-02-10 07:49 | XMS_ITS | Encounter Summary ---
Author Organization [facility] Address [address] [place] [address] Care Team Providers Care Double End Chucking Machine Operator Name Role Phone Unknown, Provider Primary Care Provider Unava ilable Encounter Details Date Type Department Care Team (Late st Contact Info) Description 08/30/2017 Results Only [facility]- [facility] [phone] Lupe Shipley, [facility] [address] [address] Social History Tobacco Use Types Packs/Day Years [...] ? PREETI CAMPBELL ? Accession #: ? [id number] ? : ? 1985 (Age: 32) ??F ?Collect Date: ? 08/30/2017 ? Location: ? [facility] ? Receive Date: ? 08/31/2017 ? Provider: LUPE SHIPLEY STEEL DIE PRINTER Copy to: VALERIE Jose SORIA STEEL DIE PRINTER ? Final Report SPECIMEN ADEQUACY ? Satisfactory [...] types 16,18,31,33,35, 39,45,51,52,56,58, 59,66, and 68 by fashion director mediated amplification. Comments Document reviewed and electronically signed by: ? System Interface ? Report date: 09/07/2017 By the signature above, the attending physician certifies that he/she has personally conducted a gross and/or microscopic examination of the described specimens and rendered or confirmed the above diagnosis. End of Report [facility] 08/30/2017 08/31/2017 us Lupe Shipley STEEL DIE PRINTER PATHOLOGY ORDERABLES Final R esult [facility] [address] [place] [address] documented in this encounter Visit Diagnoses Not on filedocumented in this encounter Care Teams Double End Chucking Machine Operator Relationship Specialty Start Date End Date Unknown, Provider, PCP - General 12/11/10 documented as of this encounter
--- OUTSIDE RECORDS SUMMARY | 2024-02-10 07:49 | XMS_ITS | Clinical Summary ---
Author Organization [facility] Address [address] [place] [address] Care Team Providers Care Major Sales Associate Name Role Phone Unknown, Provider Primary Care Provider Unava ilable Encounters Date Type Department Care Team Description 01/17/2024 Lab Requisition [facility] Pathology & Laboratory Medicine - [facility] [address] [place] [address] Deb Haas FNP Encounter for screening for [...] 3-dose series) 05/03 COVID-19 Vaccine ( season) 2023 Procedures Procedure Name Priority Date/Time Associated Diagnosis [...] Imaging System with Manual Evaluation 01/26/2024 15:16 [facility] Specimen Adequacy Satisfactory for Evaluation - transformation zone component present 01/26/2024 15:16 [facility] General Categorization Negative for intraepithelial lesion or malignancy 01/26/2024 15:16 [facility] Attestation . 01/26/2024 15:16 [facility] at 1516 Clinical History See below 01/26/20 15:16 [facility] Performing Lab [facility] 01/26/2024 15:16 [facility] Scanned Images 01/26/2024 15:16 [facility] HPV High Risk type 16, PCR Negative 01/26/2024 15:16 [facility] HPV High Risk type 18, PCR Negative 01/26/2024 15:16 [facility] HPV Other High Risk Types, PCR Negative The following Other High Risk HPV types were not detected: 31,33, 35, 39, 45, 51, 52, 56, 58, 59, 66 and 68. 01/26/2024 15:16 [facility] Pap Test CERVIX UTERI STRUCTURE / Unknown 01/14/2024 12:15 EDT 01/17/2024 12:29 EDT Deb Haas BRAIDING OPERATOR PATHOLOGY ORDERABLES Final Re sult [facility] [address] [place] [address] * HPV DNA DETECTION WITH GENOTYPING, PCR (01/14/2024 12:15 EDT) HPV High Risk type 16, PCR Negative Negative 01/26/2024 15:16 [facility] HPV High Risk type 18, PCR Negative Negative 01/26/2024 15:16 [facility] HPV other High Risk types, PCR Negative Negative 01/26/2024 15:16 EST [facility] Comment: The following Other High Risk HPV types were not detected: ??31,33, 35, 39, 45, 51, 52, 56, 58, 59, 66 and 68. Pap Test CERVIX UTERI STRUCTURE / Unknown 01/14/2024 12:15 EDT 01/25/2024 13:31 EST Deb Haas BRAIDING OPERATOR MICROBIOLOGY - GENERAL ORDERA BLES Final Result [facility] [address] [place] [address] from Last 3 Months Insurance [employer] Care Teams Major Sales Associate Relationship Specialty Start Date End Date Unknown, Provider, PCP - General 12/11/10
--- OUTSIDE RECORDS SUMMARY | 2024-02-10 07:49 | XMS_ITS | Encounter Summary ---
Author Organization [facility] Address [address] [place] [address] Care Team Providers Care Reinforcement Maker Name Role Phone Unknown, Provider Primary Care Provider Unava ilable Encounter Details Date Type Department Care Team (Late st Contact Info) Description 05/06/2015 Results Only [facility] [phone] Josue Barlow MD [address] [place] [address] Social History Tobacco Use Types Packs/Day Years [...] ? PREETI CAMPBELL ? Accession #: ? [id number] : ? 1985 (Age: 30) ??F ?Collect [...] reviewed and electronically signed by: ? Estefania Samayoa CT(ASCP) ? Report Date: ??05/14/2015 12:36 End of Report [facility] 05/06/2015 05/07/2015 us Josue Barlow MD PATHOLOGY ORDERABLES Final Resu lt [facility] [address] [place] [address] documented in this encounter Visit Diagnoses Not on filedocumented in this encounter Care Teams Reinforcement Maker Relationship Specialty Start Date End Date Unknown, Provider, PCP - General 12/11/10 documented as of this encounter
--- OUTSIDE RECORDS SUMMARY | 2024-02-10 07:49 | XMS_ITS | Encounter Summary ---
Author Organization [facility] [place] [address] Care Team Providers Care Technical Customer Support Specialist Name Role Phone Stefani Banda APRN Primary Care Provider [phone] Encounter Details Date Type Department Care Team (Late st Contact Info) Description 12/04/2014 External [place] [address] Lloyd Tineo MD [facility] [place] [address] Social History Tobacco Use Types Packs/Day Years [...] on filedocumented in this encounter Care Teams Technical Customer Support Specialist Relationship Specialty Start Date End Date Stefani Banda APRN [facility] [address] [place] [address] PCP - General 12/09/10 01/11/19 documented as of this encounter
--- OUTSIDE RECORDS SUMMARY | 2024-02-10 07:49 | XMS_ITS | Encounter Summary ---
Author Organization [facility] Address [facility] [place] [place] [address] Care Team Providers Care Apprentice Architect Name Role Phone Kelley Martin APRN Primary Care Provider [phone] Reason for Visit * Reason Comments Ultrasound * Consultation (Routine) - Specialty Diagnoses / Procedures Referred By Contac t Referred To Contact Obstetrics and Gynecology Diagnoses Encounter for supervision of normal , unspecified, unspecified trimester pt and FOB CF carrier Martha Duncan CNM [address] [place] [address] [facility] [place] Contact Specialist [address] [place] [address] Referral ID Status Reason Start Date Expiration Date V isits Requested Visits Authorized [id number] Consult, Test [facility] Treat [facility] PCP Updated and/or Approved 01/12/2019 01/12/2020 6 6 Encounter Details Date Type Department Care Team (Latest Contact Info) Description 03/06/2019 12:00 PM EST Procedure visit Obstetrics [place] [address] Rukhsana Terrazas MD [facility] [address] OBSTETRICS [place] [address] Cystic fibrosis carrier; Cigarette nicotine [...] genetic risk. 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 Her parliamentary archivist is aware of the cystic fibrosis risk. 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
--- OUTSIDE RECORDS SUMMARY | 2024-02-10 07:49 | XMS_ITS | Encounter Summary ---
Author Organization [facility] Address [address] [place] [address] Care Team Providers Care Manager Neonatal Name Role Phone Unknown, Provider Primary Care Provider Unava ilable Encounter Details Date Type Department Care Team (Latest Contact Info) Description 01/17/2024 Lab Requisition [facility] Pathology & Laboratory Medicine - [facility] [address] [place] [address] Deb Haas FNP [address] [place] [address] Encounter for screening for human papillomavirus (HPV); Encounter for screening for malignant neoplasm of cervix; Encounter for general adult medical examination without abnormal findings Social History Tobacco Use Types Packs/Day Years [...] general adult medical examination without abnormal findings documented in this encounter Results * HPV DNA DETECTION WITH GENOTYPING, PCR (01/14/2024 12:15 EDT) HPV High Risk type 16, PCR Negative Negative 01/26/2024 15:16 [facility] HPV High Risk type 18, PCR Negative Negative 01/26/2024 15:16 [facility] HPV other High Risk types, PCR Negative Negative 01/26/2024 15:16 [facility] Comment: The following Other High Risk HPV types were not detected: ??31,33, 35, 39, 45, 51, 52, 56, 58, 59, 66 and 68. Pap Test CERVIX UTERI STRUCTURE / Unknown 01/14/2024 12:15 EDT 01/25/2024 13:31 EST us Deb Haas MOTEL CLERK MICROBIOLOGY - GENERAL ORDERA BLES Final Result [facility] [address] [place] [address] * PAP TEST (01/14/2024 12:15 EDT) Specimens A. Cervix and/or Endocervix , ThinPrep Imaging System with Manual Evaluation 01/26/2024 15:16 [facility] Specimen Adequacy Satisfactory for Evaluation - transformation zone component present 01/26/2024 15:16 [facility] General Categorization Negative for intraepithelial lesion or malignancy 01/26/2024 15:16 [facility] Attestation . 01/26/2024 15:16 [facility] at 1516 Clinical History See below 01/26/20 24 15:16 [facility] Performing Lab [facility] 01/26/2024 15:16 [facility] Scanned Images 01/26/2024 15:16 [facility] HPV High Risk type 16, PCR Negative 01/26/2024 15:16 [facility] HPV High Risk type 18, PCR Negative 01/26/2024 15:16 [facility] HPV Other High Risk Types, PCR Negative The following Other High Risk HPV types were not detected: 31,33, 35, 39, 45, 51, 52, 56, 58, 59, 66 and 68. 01/26/2024 15:16 EST [facility] Pap Test CERVIX UTERI STRUCTURE / Unknown 01/14/2024 12:15 EDT 01/17/2024 12:29 EDT Deb Haas MOTEL CLERK PATHOLOGY ORDERABLES Final Re sult [facility] [address] [place], [place] [address] documented in this encounter Visit Diagnoses Diagnosis Encounter for screening for human papillomavirus (HPV) Special screening examination for human papillomavirus (HPV) Encounter for screening for malignant neoplasm of cervix Screening for malignant neoplasm of the cervix Encounter for general adult medical examination without abnormal findings Unspecified general medical examination documented in this encounter Care Teams Manager Neonatal Relationship Specialty Start Date End Date Unknown, Provider, PCP - General 12/11/10 documented as of this encounter
--- OUTSIDE RECORDS SUMMARY | 2024-02-10 07:49 | XMS_ITS | Encounter Summary ---
Author Organization [facility] Address [facility] [place] [place] [address] Care Team Providers Care Hook Tender Name Role Phone Kelley Martin APRN Primary Care Provider [phone] Reason for Visit * Reason Comments Positive Genetic Carrier Screen patient and partner are both carriers for cystic fibrosis * Consultation (Routine) - Specialty Diagnoses / Procedures Referred By Samantha ricks Referred To Contact Obstetrics and Gynecology Diagnoses Encounter for supervision of normal , unspecified, unspecified trimester pt and FOB CF carrier Martha Duncan CNM [address] [place] [address] [facility] [employer] [address] [place] [address] Referral ID Status Reason Start Date Expiration Date V isits Requested Visits Authorized [id number] Consult, Test & Treat Connection Center PCP Updated and/or Approved 01/12/2019 01/12/2020 6 6 Encounter Details Date Type Department Care Team (Late st Contact Info) Description 03/06/2019 10:00 AM EST Office Visit Obstetrics [place] [address] Prabhjot Villa, [facility] [place] [address] Hereditary familial disease affecting management [...] encounter Progress Notes * Prabhjot Villa, [facility] - 03/06/2019 10:00 AM EST Genetic Counseling Note Preeti Campbell is a 33 y.o. female currently at 18w3d gestation. I met with Preeti for a 30 minute genetic counseling visit. She was accompanied to the visit by her partner, Sanchez Maravilla. Referring Provider: Martha Duncan CNM [address] [place] [address] Chief Complaint Patient presents with ??? Positive [...] Preeti is ofCaucasian ancestry. Sanchez is of Turkish and Turkish Portuguese ancestry. Consanguinity is denied. OB History Para [...] 12/23/2018). Screening Results Test Result ? ? Arnold cell-free screen Low probability (<1/10,000) for trisomy 21, trisomy 18, & trisomy 13 ??? Cystic fibrosis carrier screen Positive (one copy of the [id number] mutation) ??? Spinal muscular atrophy carrier screen Negative (two copies of SMN1) ??? Thalassemia screen Within normal limits (MCV 91.6 fL) Assessment 1. Fetus at risk for cystic fibrosis: Preeti and Sanchez are both heterozygous for the common [id number] mutation of the CFTR gene. The fetus has a 25% chance of being homozygous for [id number], which would cause classic cystic fibrosis. We [...] a 50% chance of being heterozygous for [id number]. 2. Turkish Portuguese ancestry: Per ACOG guidelines, I offered carrier screening for Agustin-Sachs diseasebased on Sanchez's [place] Portuguese ancestry. The carrier frequency is about 1 in 70 among individualsof Turkish Portuguese ancestry and about 1 in 300 in [...] counseling documented in this encounter Care Teams Hook Tender Relationship Specialty Start Date End Date Kelley Martin, FARNAZ [address] [place] [address] PCP - General Family Medicine 01/12/19 06/24/22 documented as of this encounter
--- OUTSIDE RECORDS SUMMARY | 2024-02-10 07:49 | XMS_ITS | Encounter Summary ---
Author Organization [facility] Address [address] [place] [address] Care Team Providers Care Customs Guard Name Role Phone Unknown, Provider Primary Care Provider Unava ilable Encounter Details Date Type Department Care Team (Late st Contact Info) Description 08/10/2023 Lab Requisition [facility] Pathology & Laboratory Medicine - [facility] [address] [place] [address] Reji Oneil MD [address] [place] [phone] Calculus of gallbladder without cholecystitis without obstruction [...] explore management options, if applicable. 08/12/2023 11:07 EDT [facility] Final Diagnosis A. GALLBLADDER, CHOLECYSTECTOMY: - Chronic cholecystitis. - Focal cholesterolosis. - Cholelithiasis. 08/12/2023 11:07 EDT [facility] Attestation There was significant resident/fellow involvement in the diagnostic evaluation of this case. By the signature below, the attending physician certifies that they have personally conducted a gross and/or microscopic examination of the described specimens and rendered or confirmed the above diagnosis. 08/12/2023 11:07 T [facility] at 1107 Clinical History Cholelithiasis/ch olecystitis 08/12/2023 11:07 EDT [facility] Gross Description A. Received [...] 1.4 x 1.2 x 1.2 cm.. Two cash applications representative sections and the en face cystic duct margin are submitted in A1. SHERLEY MORALES [facility] 08/10/2023 13:46 08/12/2023 11:07 EDT [facility] Resident/Alberto w: Vincent Redmond MB [facility] 08/12/2023 11:07 EDT [facility] Performing Lab [facility] 08/12/2023 11:07 EDT [facility] Scanned Images 08/12/2023 11:07 T [facility] Tissue GALLBLADDER STRUCTURE / Unknown 08/09/2023 10:48 EDT 08/10/2023 9:17 EDT us Reji Oneil MD PATHOLOGY ORDERABLES F inal Result [facility] [address] [place] [phone] documented in this encounter Visit Diagnoses Diagnosis Calculus of gallbladder without cholecystitis without obstruction Calculus of gallbladder without mention of cholecystitis or obstruction documented in this encounter Care Teams Customs Guard Relationship Specialty Start Date End Date Unknown, Provider, PCP - General 12/11/10 documented as of this encounter
--- NOTE | 2024-02-10 08:00 | DI.CT_ITS ---
Exam(s) CT ABDOMEN PELVIS W EXAM: CT ABDOMEN PELVIS W CLINICAL HISTORY: right upper abd pain, RLQ tender. TECHNIQUE: Imaging Protocol: Axial computed tomography images with coronal and sagittal reformatted images were created and reviewed CONTRAST MATERIAL: Intravenous: Omnipaque-350 100cc Oral: None COMPARISON: CT CT ABDOMEN PELVIS W from 12/07/2022 FINDINGS: VISUALIZED LUNG BASES: No nodules nor pleural effusions evident. ABDOMEN: There is no ascites. LIVER: There are no focal hepatic lesions. No dilated intrahepatic ducts. GALLBLADDER/BILIARY: The gallbladder surgically absent. CBD diameter is 8 mm which is probably relat ed to post cholecystectomy status. There is no dilatation of intrahepatic ducts. No calculi seen in the CBD. PANCREAS: No evidence of pancreatic mass nor dilatation of the pancreatic duct. SPLEEN: Spleen is not enlarged. No obvious intrasplenic lesions. Splenic and portal veins are paten t. ADRENALS: There are no significant adrenal masses. KIDNEYS:No cysts evident. No solid renal masses. No calculi nor hydronephrosis.. ABDOMINAL AORTA: There is some atherosclerotic disease in the lower abdominal aorta proximal bilatera l common iliac arteries. No evidence of aneurysm. No tight stenosis evident. LYMPH NODES:There is no retroperitoneal nor paraaortic adenopathy. ABDOMINAL WALL: There is a small fat only containing umbilical hernia. No inguinal hernias. GI: There is no evidence of bowel obstruction, free air, nor abscess. PELVIS: GI: No evidence of appendicitis.No evidence of sigmoid diverticulitis. LYMPH NODES: There is no intrapelvic nor inguinal adenopathy. REPRODUCTIVE: Uterus unremarkable. There is a 2.5 x 2.2 cm cyst in left ovary. No surrounding fluid . No adnexal findings on the right side. URINARY BLADDER: Mostly collapsed. No obvious findings. OSSEOUS: No fractures and no significant osseous lesions. Sacroiliac joints unremarkable. IMPRESSION: 1. No evidence of acute appendicitis in this patient apparently is right-sided pain. 2. The gallbladder surgically absent. The CBD measures 8 mm which is probably related to post cholec ystectomy status. There is no dilatation of intrahepatic ducts. No abnormal fluid collections in th e gallbladder fossa region nor elsewhere in the abdomen and pelvis. 3. There is a cyst in the left ovary measuring 2.5 x 2.2 cm, probably dominant follicular. There is no surrounding fluid Called by myself to ER physician. RADIATION DOSE DELIVERED: 510.97mGy.cm Total DLP DATA REPOSITORY: All CT scans at this facility are submitted to the National Radiology Data Registry (NRDR) Dose Index Registry (DIR) with the [employer] (ACR). RADIATION OPTIMIZATION: All CT scans at this facility use at least one of these dose optimization te chniques: automated exposure control; mA and/or kV adjustment per patient size (includes targeted exa ms where dose is matched to clinical indication); or iterative reconstruction.
--- NOTE | 2024-02-10 08:13 | ED.GENADUL_ITS ---
Discharge Plan Disposition Patient Disposition: Home Condition: Stable Discharge Details Clinical Impression: Abdominal pain, Rectal bleeding Primary Care Provider: Deb Haas ED Provider: Eric Coreas Home Meds and New Rx's Prescriptions: Continued sumatriptan succinate 50 mg tablet 50 mg PO ONCE buspirone 5 mg tablet 5 mg PO BID omeprazole 40 mg capsule,delayed release(DR/EC) 40 mg PO DAILY levothyroxine 125 mcg capsule 137 mcg PO DAILY Discharge Instructions Instructions: Abdominal Pain, Adult ED, GI bleed Additional Instructions: Please contact your primary care physician to arrange follow-up. Your blood pressure was elevated today at 153/81. Please be sure to discuss this with your doctor. Please follow-up with general surgery to schedule colonoscopy. Return to the ER immediately for any worsening or new concerning symptoms including worsening pain or bleeding. Referrals: [facility] [Provider Group] Deb Haas [Primary Care Provider] - Discharge Data Discharge Date/Time-TO BE ENTERED AT DEPARTURE: 02/10/24 09:23 HPI General Mode of arrival: ambulatory . Date/Time Provider Initiated Documentation: 02/10/24 07:55 . Limitations to Documentation: no limitations . Information obtained by: patient . HPI Narrative: 38-year-old female with history of cholecystectomy in July, presents with chief complaint of abdominal pain. Patient notes pain started about a week and a half ago and has been intermittent since onset. Pain described as a ache. Pain localized to right upper abdomen. No associated vomiting. She does note bright red blood with brown formed stool this morning. She has had bloody stool in the past associated with anal fissure. Last menstrual period was normal about a week ago. Related Data Home Medications ?Medication ?Instructions ?Recorded ?Confirmed levothyroxine 125 mcg capsule 137 mcg PO DAILY 01/19/20 02/10/24 sumatriptan succinate 50 mg tablet 50 mg PO ONCE 07/20/22 02/10/24 buspirone 5 mg tablet 5 mg PO BID 08/05/23 02/10/24 omeprazole 40 mg capsule,delayed 40 mg PO DAILY 02/10/24 02/10/24 release Allergies Allergy/AdvReac Type Severity Reaction Status Date / Time Penicillins Allergy Mild Uncertain Verified 02/10/24 07:49 - very young age with previous reaction Sulfa (Sulfonamide Allergy Mild Uncertain Verified 02/10/24 07:49 Antibiotics) of reaction - very young age w/previous reaction General Stated Complaint: Abd Prob EKTA: 3 Review of Systems All systems reviewed & are unremarkable except as noted in HPI and below Constitutional Constitutional: Denies fever(s) Gastrointestinal Gastrointestinal: Reports as per HPI Exam Const General: cooperative and no acute distress HENMT Mouth: moist mucous membranes Eyes Conjunctivae: normal conjunctivae Sclera: normal sclerae Resp Auscultation: clear to auscultation bilaterally, no rales, no rhonchi and no wheezes Cardio Rate: regular rate and not tachycardic Rhythm: regular rhythm GI Palpation: soft, no hepatosplenomegaly, not firm, no guarding, no masses, not rigid and tender in the RLQ; Park's sign negative, with no rebound tenderness and Rovsing's sign negative Auscultation: normal bowel sounds Skin General skin exam: no rashes or lesions noted Neuro General: patient alert, patient awake and tone normal Extrem General: no edema Course Vital Signs Vital signs: Vital Signs Temperature 36.6 C 02/10/24 07:44 Pulse 81 02/10/24 07:44 Respiratory Rate 16 02/10/24 07:44 Blood Pressure 153/81 H 02/10/24 07:44 Pulse Oximetry 96 02/10/24 07:44 Temperature 36.6 C 02/10/24 07:48 Temperature Source Oral 02/10/24 07:48 Pulse 81 02/10/24 07:48 Respiratory Rate 16 02/10/24 07:48 Respiratory Effort Normal 02/10/24 07:47 Blood Pressure 153/81 H 02/10/24 07:48 Pulse Oximetry 96 02/10/24 07:48 Oxygen Delivery Method Room Air 02/10/24 07:48 Oxygen Flow Rate 0 02/10/24 07:48 Pain Level 6 02/10/24 07:48 Medical Decision Making 805 --38-year-old female with history of cholecystectomy, right ovarian cyst, congenital factor VII deficiency, here with intermittent right upper abdominal pain over the past 1.5 weeks, now with bright red blood with bowel movement this morning, tender to palpation right lower quadrant. Patient is hemodynamically stable. I am concerned for acute colitis versus consider acute appendicitis. Consider ovarian cyst. Presentation is not consistent with ovarian torsion. Plan to obtain CT of the abdomen pelvis to assess for acute surgical pathology. 915 --CT abdomen pelvis was interpreted by radiology:1. No evidence of acute appendicitis in this patient apparently is right-sided pain. 2. The gallbladder surgically absent. The CBD measures 8 mm which is probably related to post cholecystectomy status. There is no dilatation of intrahepatic ducts. No abnormal fluid collections in the gallbladder fossa region nor elsewhere in the abdomen and pelvis. 3. There is a cyst in the left ovary measuring 2.5 x 2.2 cm, probably dominant follicular. There is no surrounding fluid Labs reviewed and nondiagnostic. Normal LFTs. Normal lipase. Normal hemoglobin. Normal platelets. Patient reassessed and external rectal exam was performed with nurse psych arnp Armand present. No active bleeding. All results were discussed with the patient. Plan for discharge with close outpatient follow-up for colonoscopy. -- Appointment was arranged with Dr. Chavez on February 21 in clinic. I contacted the patient and let her know about the appointment. I did speak with the patient about congenital factor VII deficiency and she notes in fact that she does not have this deficiency. Lab Data Lab results reviewed: Yes I reviewed the patient's lab results. Labs: Laboratory Tests Range/Units 02/10/24 02/10/24 08:15 08:25 WBC (4.4-10.8) 10^3/uL 5.26 RBC (3.93-5.22) 10^6/uL 4.45 Hgb (11.2-15.7) g/dL 13.8 Hct (36.0-46.0) % 41.1 MCV (80-95) fL 92 MCH (27.0-33.0) pg 31.0 MCHC (32.0-36.0) % 33.6 RDW (11.7-14.6) % 11.9 Plt Count (130-400) 10^3/uL 258 MPV (8.0-11.0) fL 9.9 Immature Gran % % 0.4 Neutrophils % % 55.6 Lymphocytes % % 31.6 Monocytes % % 9.5 Eosinophils % % 2.5 Basophils % % 0.4 Nucleated RBC % (0.0-0.3) % 0.0 Absolute Neutrophils (1.2-6.7) 10^3/uL 2.93 Absolute Lymphocytes (1.2-3.4) 10^3/uL 1.66 Absolute Monocytes (0.1-0.8) 10^3/uL 0.50 Absolute Eosinophils (0.0-0.7) 10^3/uL 0.13 Absolute Basophils (0.0-0.2) 10^3/uL 0.02 Sodium (136-145) mmol/L 141 Potassium (3.5-5.1) mmol/L 4.0 Chloride (98-107) mmol/L 107 Carbon Dioxide (21.0-32.0) mmol/L 26.3 Anion Gap (3-11) mmol/L 7.7 BUN (7-18) mg/dL 9 Creatinine (0.55-1.02) mg/dL 0.9 Est GFR (CKD-EPI 2020) (mL/min/1.73m2) 84.97 Glucose (74-106) mg/dL 99 Calcium (8.5-10.1) mg/dL 9.2 Magnesium (1.8-2.4) mg/dL 2.0 Total Bilirubin (0.2-1.0) mg/dL 0.59 AST (15-37) U/L 24 ALT (14-59) U/L 47 Alkaline Phosphatase (46-116) U/L 52 Total Protein (6.4-8.2) g/dL 7.5 Albumin (3.4-5.0) g/dL 3.7 Lipase (16-77) U/L 32 Urine Color (Yellow) Yellow Urine Clarity (Clear) Clear Urine pH (5-8) 7.0 Ur Specific [place] (1.005-1.025) 1.020 Urine Protein (Neg-Trace) mg/dL Negative Urine Ketones (Negative) mg/dL Negative Urine Blood (Negative) Negative Urine Nitrite (Negative) Negative Urine Bilirubin (Negative) Negative Urine Urobilinogen (Up to 0.2) mg/dL 0.2 Ur Leukocyte Esterase (Negative) Small H Urine RBC (0-2) HPF Negative Urine WBC (0-5) HPF 3-5 Ur Epithelial Cells (Negative) HPF Moderate Urine Crystals (Negative) HPF Negative Urine Bacteria (Negative) HPF Few Urine Casts (Negative) LPF Negative Urine Mucus (Negative) Trace Ur Culture Indicated? No Urine Glucose (Negative) mg/dL Negative Quality:SDOH Health Related Social Needs: No Data to Display PFSH All Active Problems (Updated 02/10/24 @ 09:10 by Eric Coreas MD) Rectal bleeding (Acute) Abdominal pain (Acute) PONV (postoperative nausea and vomiting) (Acute) Lorazepam used with good effect. Nausea (Acute) Postprandial RUQ pain (Acute) Left elbow pain (Acute) Left wrist pain (Acute) Cubital tunnel syndrome on left (Acute) Acute anal fissure (Acute) Ovarian cyst (Acute) Left ovarian cyst Back pain (Acute) History of migraine (Acute) Hypothyroid (Acute 07/30/16) Hashimotos Multinodular non-toxic goiter (Acute 05/06/15) Tobacco use disorder (Acute 02/28/14) Medical History History of blood transfusion Pt states she has never had a blood tranfusion Palpitations Pt. states caused by hypothyroidism TMJ tenderness Low back pain Anxiety Multinodular goiter Enlarged thyroid Congenital factor VIII disorder Pt. states she had this worked up and she does not have this. 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) Partner also a carrier Migraine Surgical History Carpal tunnel syndrome, left S/P ECTR: 09/29/2023 S/P laparoscopic cholecystectomy (~07/2023) H/O wisdom tooth extraction Family History Other Diabetes Hyperlipidemia Osteoporosis Personal history of malignant neoplasm Social History Smoking/Tobacco Use Status: Former Tobacco Use Quit Date: 02/04/19 Pack-years: 8 Tobacco: How many years used: 16 Quit status: considering quitting Smoking risk assessment performed?: Yes Alcohol Intake: never Drug use: Never Substance use type: does not use Housing: house Number of Children: 1 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 Date GA/Weeks # Preg Succ Route Wgt Sex Labor Lgth Anesth esia Location [facility] 04/16/11 42 No vaginal 3628.739 g Female 6 hrs local Ane a other 08/09/19 40 No vaginal 3770.487 g Female piper Faulkner CNM Delivery Date: 04/16/11 Last Updated by: Tracie Santos CNM episiotomy, stripped membranes due to post dates.
[2024-02-10 08:31] LABS: Abs Immature Grans 0.02 10^3/uL (0.0-0.06); Absolute Basophil Count 0.02 10^3/uL (0.0-0.2); Absolute Eosinophil Count 0.13 10^3/uL (0.0-0.7); Absolute Lymphocyte Count 1.66 10^3/uL (1.2-3.4); Absolute Neutrophil Count 2.93 10^3/uL (1.2-6.7); Basophils % 0.4 %; Eosinophils % 2.5 %; HCT 41.1 % (36.0-46.0); HGB 13.8 g/dL (11.2-15.7); Immature Grans % 0.4 %; Lymphocytes % 31.6 %; MCHC 33.6 % (32.0-36.0); MCV 92 fL (80-95); MPV 9.9 fL (8.0-11.0); Monocytes % 9.5 %; Neutrophils % 55.6 %; Platelet Count 258 10^3/uL (130-400); RBC 4.45 10^6/uL (3.93-5.22); RDW 11.9 % (11.7-14.6); RDW-SD 40.5 fL; WBC 5.26 10^3/uL (4.4-10.8)
[2024-02-10] MEDS: Normal Saline - Diluent 50 ML VIAL IJ (08:33)
[2024-02-10 08:34] LABS: Bilirubin Negative (Negative); Blood Negative (Negative); Clarity Clear (Clear); Glucose Negative (Negative); Ketones Negative (Negative); Leukocyte Esterase Small (Negative); Nitrite Negative (Negative); Urobilinogen 0.2 mg/dL (Up to 0.2)
[2024-02-10] MEDS: Omnipaque 350 MG/ML 100 ML BTL IJ (08:34)
[2024-02-10 08:40] LABS: Epithelial Cells Moderate HPF (Negative); RBC Negative HPF (0-2)
[2024-02-10 08:41] LABS: Bacteria Few HPF (Negative); C & S Indicated? No; Casts Negative LPF (Negative); Crystals Negative HPF (Negative); Mucus Trace (Negative)
[2024-02-10 08:50] LABS: ALT 47 U/L (14-59); AST 24 U/L (15-37); Albumin 3.7 g/dL (3.4-5.0); Alkaline Phosphatase 52 U/L (46-116); Anion Gap 7.7 mmol/L (3-11); BUN 9 mg/dL (7-18); Bilirubin, Total 0.59 mg/dL (0.2-1.0); CO2 26.3 mmol/L (21.0-32.0); CREATININE 0.9 mg/dL (0.55-1.02); Calcium 9.2 mg/dL (8.5-10.1); Chloride 107 mmol/L (98-107); Estimated GFR 84.97 (mL/min/1.73m2); Glucose 99 mg/dL (74-106); Lipase 32 U/L (16-77); Sodium 141 mmol/L (136-145); Total Protein 7.5 g/dL (6.4-8.2)
== END 2024-02-10 09:23 | disposition home or self-care (01) ==
PROVIDERS: Emergency Provider Student in an Organized Health Care Education/Training Program; PCP Nurse Practitioner Family
DX: R10.31 Right lower quadrant pain; K62.5 Hemorrhage of anus and rectum; R11.0 Nausea; Z90.49 Acquired absence of other specified parts of digestive tract; Z87.891 Personal history of nicotine dependence
CPT/HCPCS: 36415; 80053; 83690; 99285; 74177; 81003; 81015; 83735; 85025; 99284; J3490

== ENCOUNTER 2024-02-25 15:24 | Outpatient (REF) | payer OTHER, SELFPAY ==
[2024-02-25 23:28] LABS: Campylobacter PCR Negative (Negative); Salmonella PCR Negative (Negative); Shiga Toxin PCR Negative (Negative); Shigella/Enteroinvasive Ecoli Negative (Negative)
[2024-02-29 13:11] LABS: Helicobacter pylori Ag, Feces Negative (Negative)
== END 2024-02-25 15:25 | disposition home or self-care (01) ==
LOC: LBN 15:24
PROVIDERS: PCP Nurse Practitioner Family; Visit Provider Surgery
DX: K62.5 Hemorrhage of anus and rectum (principal); R10.9 Unspecified abdominal pain
CPT/HCPCS: 87338; 87493; 87505

== ENCOUNTER 2024-03-31 10:25 | Day surgery (SDC) | payer OTHER, SELFPAY ==
--- NOTE | 2024-03-30 15:09 | PDOC.DSDIS_ITS ---
Date of service: 03/31/24 Discharge Plan Disposition Patient Disposition: Home Condition: Good Discharge Details Reason For Visit: EGD and colonoscopy Attending Provider: Iam Chavez Primary Care Provider: Deb Haas Home Meds and New Rx's Prescriptions: Continued sucralfate 1 gram tablet 1 g PO BID Qty: 60 3RF Rx Instructions: Take 1 tablet in the morning, 1 tablet in evening sumatriptan succinate 50 mg tablet 50 mg PO ONCE buspirone 5 mg tablet 5 mg PO BID omeprazole 40 mg capsule,delayed release(DR/EC) 40 mg PO DAILY acetaminophen [Acetaminophen Pain Relief] 500 mg tablet 500 mg PO ONCE Patient Comments: 1000 mg levothyroxine 125 mcg capsule 137 mcg PO DAILY Discharge Instructions Additional Instructions: Preeti was great seeing you today, I hope you are comfortable throughout the procedure. Everything went very smoothly. Your prep was excellent. With rega rds to your upper GI, the only abnormality is just a little bit of irregularity at the GE junction that seems consistent with a little bit of gastroesophageal reflux disease. Everything else appears normal in appearance and structure. As you mentioned before hand, I did do biopsies of the duodenum to rule out celiac disease, biopsies of the stomach to rule out Helicobacter pylori, and a few biop sies along the esophagus to rule out any forms of microscopic esophagitis. The colonoscopy also went very smoothly. I was able to cannulate several centimeters into the terminal ileum. I do not see any signs of terminal ileitis or Crohn's disease. I did do some biopsies here for pathology to review. I also did random biopsies all along the length of your colon, which also appears normal. Finally, there is no signs of any Crohn's disease or ulcerative colitis in the distal portion of the large intestine. All of the biopsies will take a week or 2 to get back, but once I have that information I will be in touch with any other recommendations. 1. If tolerated, consume a soft, low fiber diet for 1-2 days. [address] Do not drive, drink alcohol, operate machinery, make critical decisions, or d o activities that require coordination or balance for 24 hours. 3. Because air was put into your colon during the procedure, expelling air from your rectum (passing gas or farting) is normal. 4. You may not have a bowel movement for 1-3 days because of the colonoscopy prep. This is normal. 5. You may experience a sore throat for 24 to 48 hours. You may use throat lozenges or gargle with warm salt water to relieve the discomfort. 6. Because air was put into your stomach during the procedure, you may experience some belching. 7. Go directly to the emergency room if you notice any of the following: Develop chills (warm to touch), or if you have a thermometer and your temperature is above 101 Difficulty breathing or difficultly swallowing Persistent vomiting Severe abdominal pain, other than gas cramps Severe chest pain Black, tarry stools Any bleeding ? exceeding one tablespoon 8. Call your physician if the site where your intravenous was started becomes red, swollen, painful, and warm to touch. 9. Your physician has reviewed your pre-procedure medications. Please continue to take those medications as previously ordered. You will be given specific information/education regarding any changes to your medications before leaving. Activity:: Activity as Tolerated Diet:: As Tolerated Discharge Orders Discharge Orders: Discharge Order (Routine); Ordered 03/30/24 Ordered By: Iam Chavez DS: Diagnosis Discharge Diagnosis (1) Nausea: Status: Acute Asessment and Plan: Normal-appearing EGD and colonoscopy; follow-up on biopsies
--- NOTE | 2024-03-30 15:11 | W.PREOPHP ---
Assessment and Plan Assessment and plan (1) Nausea: Status: Acute Assessment and plan: Preeti had another opurtunity to ask any questions about EGD and colonsocopy. We can proceed as planned. History of Present Illness History of Present Illness Chief Complaint: nausea and abdomial pain Narrative: Preeti is 38 years old, and she is referred from the emergency department with right-sided abdominal pain and some bloody diarrhea. Symptoms first occurred about 3 to 4 weeks ago. She describes it as similar in character to when she was diagnosed with biliary colic. The discomfort waxes and wanes, and tends to vary between sharp and dull achy colick. It does not seem to be associated with food. Symptoms are distinct from gastroesophageal reflux disease which she was diagnosed within the past. She also reports more frequent flatulence, and some occasional bloodstained loose bowel movements. She denies any sick contacts. She was seen in the emergency department on 10 February, and underwent basic labs and CT imaging. Aside from small leuk esterase in her urine, labs were otherwise totally normal. CT scan shows mild dilation of the common bile duct to 8 mm with no evidence of intrahepatic dilation. There is note of a left-sided ovarian cyst. Past medical history includes GERD as mentioned above which seems improved with omeprazole. Family history includes a mother with lung cancer Past surgical history is laparoscopic cholecystectomy. Since her last visit, she had a upper respiratory tract infection, but otherwise has made a full recovery. PFSH All Active Problems PONV (postoperative nausea and vomiting) (Acute) Lorazepam used with good effect. Nausea (Acute) Postprandial RUQ pain (Acute) Left elbow pain (Acute) Left wrist pain (Acute) Cubital tunnel syndrome on left (Acute) Acute anal fissure (Acute) Ovarian cyst (Acute) Left ovarian cyst Back pain (Acute) History of migraine (Acute) Hypothyroid (Acute 07/30/16) Hashimotos Multinodular non-toxic goiter (Acute 05/06/15) Tobacco use disorder (Acute 02/28/14) Medical History History of blood transfusion Pt states she has never had a blood tranfusion Palpitations Pt. states caused by hypothyroidism TMJ tenderness Low back pain Anxiety Multinodular goiter Enlarged thyroid Congenital factor VIII disorder Pt. states she had this worked up and she does not have this. 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) Partner also a carrier Migraine Surgical History Carpal tunnel syndrome, left S/P ECTR: 09/29/2023 S/P laparoscopic cholecystectomy (~07/2023) H/O wisdom tooth extraction Family History Other Diabetes Hyperlipidemia Osteoporosis Personal history of malignant neoplasm Social History Smoking/Tobacco Use Status: Former Tobacco Use Quit Date: 02/04/19 Pack-years: 8 Tobacco: How many years used: 16 Quit status: considering quitting Smoking risk assessment performed?: Yes Alcohol Intake: never Drug use: Never Substance use type: does not use Housing: house Number of Children: 1 current occupation: [employer] Do you feel safe at home: Yes Do you feel safe in your relationship?: Yes Additional Social history: UTAP Female Reproductive History Menstrual control method: none History History 2 Para 2 Hx # Term Pregnancies 2 Multiple births 0 Hx # Pregnancies 0 Ectopic pregnancies 0 AB induced 0 Hx Number of Living Children 2 AB spontaneous 0 Past Pregnancies Del. Date GA/Weeks # Preg Succ Route Wgt Sex Labor Lgth Anesthesia Location Prov Complic 04/16/11 42 No vaginal 8 lb Female 6 hrs local [place] other 08/09/19 40 No vaginal 8 lb 5 oz Female piper Faulkner CNM Delivery Date: 04/16/11 Last Updated by: Tracie Santos CNM episiotomy, stripped membranes due to post dates. Meds Allergies and Home Medications Allergies Allergy/AdvReac Type Severity Reaction Status Date / Time Penicillins Allergy Mild Uncertain Verified 03/31/24 10:52 - very young age with previous reaction Sulfa (Sulfonamide Allergy Mild Uncertain Verified 03/31/24 10:52 Antibiotics) of reaction - very young age w/previous reaction Home Medications ?Medication ?Instructions ?Recorded ?Confirmed ?Type levothyroxine 125 mcg capsule 137 mcg PO DAILY 01/19/20 03/31/24 History sumatriptan succinate 50 mg tablet 50 mg PO ONCE 07/20/22 03/31/24 History buspirone 5 mg tablet 5 mg PO BID 08/05/23 03/31/24 History omeprazole 40 mg capsule,delayed 40 mg PO DAILY 02/10/24 03/31/24 History release sucralfate 1 gram tablet 1 g PO BID #60 tabs 02/22/24 03/31/24 Rx acetaminophen 500 mg tablet 500 mg PO ONCE 03/31/24 03/31/24 History (Acetaminophen Pain Relief) Exam Const General: cooperative, healthy appearing and not in acute distress Neck Neck: normal visual inspection, no lymphadenopathy and supple Resp Effort & Inspection: normal respiratory effort Auscultation: clear to auscultation bilaterally Cardio Jugular venous pressure: no JVD Rate: regular rate Rhythm: regular rhythm Heart Sounds: S1 normal and S2 normal GI Inspection: normal to inspection Palpation: soft, no guarding, no hernias and nontender Percussion: normal to percussion Auscultation: normal bowel sounds Neuro General: patient alert, patient awake and patient oriented x3 Psych Appearance: grossly normal
--- NOTE | 2024-03-30 15:12 | ENDO_ITS ---
Date of service: 03/31/24 Time of Service: 12:53 Endoscopy Report DATE OF PROCEDURE: 03/31/24 PRE-OP DIAGNOSIS: abdominal pain and nausea POST-OP DIAGNOSIS: other (Normal-appearing EGD and colonoscopy) PROCEDURE: EGD with biopsies and colonoscopy with biopsies SURGEON: Iam Chavez ANESTHESIA TYPE: General:No Airway ESTIMATED BLOOD LOSS: 10 PATHOLOGY: other (Random biopsies of duodenum to rule out celiac disease; random biopsies of gastric antrum and body rule out H. pylori; biopsies of GE junction, biopsies of esophagus to rule out esophagitis; biopsies of terminal ileum, random biopsies of colon) COMPLICATIONS: None DISPOSITION: same day INDICATIONS: She is 38 years old, and she is referred from the emergency department with right-sided abdominal pain and some bloody diarrhea. Symptoms first occurred about 3 to 4 weeks ago. She describes it as similar in character to when she was diagnosed with biliary colic. The discomfort waxes and wanes, and tends to vary between sharp and dull achy colick. It does not seem to be associated with food. Symptoms are distinct from gastroesophageal reflux disease which she was diagnosed within the past. She also reports more frequent flatulence, and some occasional bloodstained loose bowel movements. She denies any sick contacts. She was seen in the emergency department on 10 February, and underwent basic labs and CT imaging. Aside from small leuk esterase in her urine, labs were otherwise totally normal. CT scan shows mild dilation of the common bile duct to 8 mm with no evidence of intrahepatic dilation. There is note of a left- sided ovarian cyst.. PREP: Miralax/Dulcolax PROCEDURE START TIME: 12:10 PROCEDURE END TIME: 12:40 COLONOSCOPY RETRACTION TIME: 12 FINDINGS: Normal-appearing EGD with very mild irregularity of the Z-line around 36 cm from the incisors; normal-appearing colon and terminal ileum PROCEDURE DESCRIPTION: After the initiation of anesthesia, and with the assistance of a bite block, I advanced a standard gastroscope through the mouth past the hypopharynx and into the esophagus.? Under the direct vision of the scope, I advanced down the esophagus towards the stomach.? The upper, mid, and lower esophagus were all normal-appearing. There was very mild irregularity of the Z-line around 36 cm from the incisors. Otherwise the GE junction appeared normal. Once I entered the stomach, I performed a brief inspection, followed by retroflexion towards the gastric cardia.? This appeared normal. I advanced down around the incisura angularis and across the pylorus into the duodenum. The duodenal mucosa was normal and healthy appearing. Cold forceps biopsies were performed to rule out celiac disease. The camera was then brought back up into the stomach. Nondirected biopsies of the gastric antrum and body were also performed to rule out H. pylori. I brought the camera back up to the Z-line, and because of the irregularity here, I did do cold forceps biopsy, although clinical features by narrowband imaging do not appear consistent with Olmedo's esophagus. Finally, as I brought the camera along the length of the esophagus, I did perform some nondirected biopsies of this as well to rule out esophagitis. Next we rolled Preeti into the left lateral decubitus position. Great care was taken to make sure that she was padded and supported appropriately. I began by performing an external anorectal exam.? Perineum and skin were normal, as was the anal verge.? There was no evidence of external hemorrhoids.? Next, I performed a digital rectal exam.? I did not appreciate any abnormal findings.? Next, I advanced a colonoscope into the rectal vault.? I performed retroflexion.? This appeared normal using insufflation, I then advanced the colonoscope beyond the rectal folds and into the sigmoid colon before advancing towards the cecum.? The quality of the prep was excellent.? The scope was noted to be in the cecum by identification of the ileocecal valve and appendiceal orifice.? I cannulated the terminal ileum for several centimeters. There is no evidence of any ulceration or inflammation. Cold forceps biopsies were performed here to rule out Crohn's disease. I then began withdrawing the colonoscope using repeated irrigation as necessary for full evaluation of the colonic mucosa. ?The mucosa of the colon was also normal and healthy appearing, without any evidence of inflammation anywhere along its length. I did do some nondirected cold forceps biopsies along the colon to rule out microscopic colitis. Once the scope was withdrawn to the level of the rectum, great care was taken to examine portions of the rectal folds.? I saw no signs of Crohn's disease here, nor did I see any features that were consistent with ulcerative colitis. Finally, the scope was withdrawn and the patient was brought to the same-day surgery recovery unit as the anesthetic wore off. ?The findings and instructions were shared with the patient prior to discharge.
[2024-03-31 10:57] VITALS: BP 124/86; PULSE 100; RESP 20; TEMP 36.3; O2SAT 98
[2024-03-31] MEDS: Lactated Ringers 1,000 ML 80 ML IV (11:15)
--- NOTE | 2024-03-31 11:53 | ANES.PREOP_ITS ---
General Info Date of Service Date Performed: 03/31/24 Height: 5 ft 7 in Weight: 91.6 kg Body Mass Index (BMI): 31.6 Surgical Procedure: Operation Date: 03/31/24 11:20 Proposed Procedure Side Surgeon p Colonoscopy/Gastroscopy Samantha Collado, Meds Allergies and Home Medications Allergies Allergy/AdvReac Type Severity Reaction Status Date / Time Penicillins Allergy Mild Uncertain Verified 03/31/24 10:52 - very young age with previous reaction Sulfa (Sulfonamide Allergy Mild Uncertain Verified 03/31/24 10:52 Antibiotics) of reaction - very young age w/previous reaction Home Medication ?Medication ?Instructions ?Recorded levothyroxine 125 mcg capsule 137 mcg PO DAILY 01/19/20 sumatriptan succinate 50 mg tablet 50 mg PO ONCE 07/20/22 buspirone 5 mg tablet 5 mg PO BID 08/05/23 omeprazole 40 mg capsule,delayed 40 mg PO DAILY 02/10/24 release sucralfate 1 gram tablet 1 g PO BID #60 tabs 02/22/24 acetaminophen 500 mg tablet 500 mg PO ONCE 03/31/24 (Acetaminophen Pain Relief) Current Visit Medications: Current Medications Generic Name Dose Route Start Last Admin Trade Name Freq PRN Reason Stop Dose Admin Ringer's Solution 1,000 mls @ 80 mls/hr 03/31/24 10:00 03/31/24 11:15 IV 04/30/24 09:59 80 mls/hr INFUSION SANTY Administration IV Miscellaneous Supplies 1 each 03/31/24 06:00 Iv Access IV 03/31/24 23:59 DIRECTED SANTY Ondansetron HCl 4 mg 03/30/24 15:13 Ondansetron 4 Mg/2 Ml Vial IVP 04/29/24 15:12 Q4H PRN PRN Nausea / Vomiting Sodium Chloride 0 ml 03/31/24 06:00 Normal Saline Flush 10 Ml Syr IV 03/31/24 23:59 PRN PRN Sodium Chloride 0 ml 03/31/24 06:00 Normal Saline 10 Ml Vial IJ 03/31/24 23:59 DIRECTED PRN Sterile Water 0 ml 03/31/24 06:00 Water,Injection,Sterile 10 Ml Vial IJ 03/31/24 23:59 DIRECTED PRN PFSH Active Problems Active Problems: Problem Status Onset Code PONV (postoperative nausea and vomiting) Acute R11.2, Z98.890 Nausea Acute R11.0 Postprandial RUQ pain Acute R10.11 Left elbow pain Acute M25.522 Left wrist pain Acute M25.532 Cubital tunnel syndrome on left Acute G56.22 Acute anal fissure Acute K60.0 Ovarian cyst Acute N83.209 Back pain Acute M54.9 History of migraine Acute Z86.69 Hypothyroid Acute 07/30/16 E03.9 Multinodular non-toxic goiter Acute 05/06/15 E04.2 Tobacco use disorder Acute 02/28/14 F17.200 Medical History Medical History History of blood transfusion Pt states she has never had a blood tranfusion Palpitations Pt. states caused by hypothyroidism TMJ tenderness Low back pain Anxiety Multinodular goiter Enlarged thyroid Congenital factor VIII disorder Pt. states she had this worked up and she does not have this. 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 Date GA/Weeks # Preg Succ Route Wgt Sex Labor Lgth Anesth esia Location Prov Complic 04/16/11 42 No vaginal 3628.739 g Female 6 hrs local [facility] other 08/09/19 40 No vaginal 3770.487 g Female piper Faulkner CNM Delivery Date: 04/16/11 Last Updated by: Tracie Santos CNM episiotomy, stripped membranes due to post dates. Vital Signs and Lab Results Vital Signs Most Recent Vital Signs in EMR: Most Recent Vital Signs Temp Pulse Resp BP Pulse Ox 36.3 C L 100 H 20 124/86 98 03/31/24 10:57 03/31/24 10:57 03/31/24 10:57 03/31/24 10:57 03/31/24 10:57 Lab Results Blood Type / Crossmatch: No Data to Display Complete Blood Count: No Data to Display Complete Metabolic Panel: No Data to Display Liver Function Panel: No Data to Display Coagulation Panel: No Data to Display Cardiac Panel: No Data to Display Arterial Blood Gas: No Data to Display Venous Blood Gas: No Data to Display Pancreas Panel: No Data to Display Thyroid Panel: No Data to Display Infectious Disease: 2 No Data to Display Blood Cultures: No Data to Display Toxicology Panel: No Data to Display Panel: No Data to Display Anesthesia Assessment and Plan Anesthesia History Personal History: PONV Family History: No Family History of Anesthesia Complications Exercise Tolerance Exercise Tolerance: Metabolic Equivalents>4 Cardiac & Pulmonary Exam Cardiac Exam: Normal S1/S2 Heart Sounds Pulmonary Exam: Clear Bilateral Breath Sounds Implantable Cardiac Device Does patient have a Pacemaker or an ICD?: No Airway Exam Known Difficult Airway: No Mallampati Class: 1 Mouth Opening: Normal (> 3cm) Thyromental Distance: Greater than 3 cm Neck Range of Motion: Full ROM Neck Circumference: Normal Teeth Condition: Normal Dentition ASA Classification ASA Score: ASA 2 Emergency Case?: No NPO Status NPO Status: NPO Clears >2 hours, Solids >8 hours Status Status: Negative HCG Anesthesia Plan Resuscitation Status: Full Code Anesthesia Technique: General Anesthesia Airway Planned: Natural Airway Monitors Used: Standard Monitors Preoperative Comments:: 38 yo female for EGD/colo. Sig PMHx: GERD (omeprazole), hypothyroid (levothyroxine), smoker, anxiety, migraine. former smoker. Previous Anes: PONV - ectr, prop, natural airway, no issues. - lap dean, mac 3 grade 2a, no issues.
[2024-03-31 11:58] VITALS: BMI 31.6
--- NOTE | 2024-03-31 12:11 | BOWEL_PTH ---
PATIENT: Preeti Campbell LOC: [facility] U#:[id number] AGE/SX: 38/F ROOM: RE03/31/[address]: Iam Chavez MD : [id number] BED: DIS: 03/31/2024 SPEC #: [id number] RECD: 03/31/24 13:38 STATUS: LACY REQ #: [id number] NOÉ: 03/31/24 12:[address]: Iam Chavez DEPT: Surgical Specimen RECD BY: Karen Daniel ENTERED: 03/31/24 13:40 SP TYPE: Bowel OTHR DR: Deb Haas Tissues: 1 - BIOPSY BOWEL 2 - STOMACH BIOPSY 3 - STOMACH BIOPSY 4 - ESOPHAGUS BIOPSY 5 - ESOPHAGUS BIOPSY 6 - BIOPSY BOWEL 7 - BIOPSY BOWEL Procedures: GROSS AND MICRO LEVEL 4 Comments: [id number]
[2024-03-31 12:47] VITALS: BP 115/74; PULSE 92; RESP 20; TEMP 36.4; O2SAT 97
--- NOTE | 2024-03-31 12:52 | W.ANESPOSTOP ---
Postoperative Evaluation Date, Time and Location Date Performed: 03/31/24 Time Performed: 12:52 Patient Location: Day Surgery Unit Vital Signs Most Recent Imported Vital Signs: Most Recent Vital Signs Temp Pulse Resp BP Pulse Ox 36.3 C L 100 H 20 124/86 98 03/31/24 10:57 03/31/24 10:57 03/31/24 10:57 03/31/24 10:57 03/31/24 10:57 Pain Score Most Recent Pain Score: Most Recent Pain Score Pain Level 5 03/31/24 10:57 Assessment Mental Status: Awake (Alert & Oriented to Patient Baseline) Airway and Respiratory Function: Patent airway with normal (patient baseline) respiratory exam Cardiovascular Function: Hemodynamically Stable Hydration Status: Adequately Hydrated Nausea & Vomiting: No Nausea or Vomiting Pain: Pt. Denies Any Pain Peripheral Nerve Block: Patient did not receive a nerve block
[2024-03-31 13:22] VITALS: BP 121/82; PULSE 68; RESP 16; TEMP 36.2; O2SAT 100
== END 2024-03-31 13:27 | disposition home or self-care (01) ==
PROVIDERS: PCP Nurse Practitioner Family; Visit Provider Surgery
PROC: (CPT 45380; principal; 2024-03-31 11:15)
DX: R11.0 Nausea (principal); R10.9 Unspecified abdominal pain; K22.89 Other specified disease of esophagus; K31.89 Other diseases of stomach and duodenum
CPT/HCPCS: 45380; 43239; 88305; J2405; J2704

== ENCOUNTER 2024-08-04 13:40 | Outpatient (CLI) | payer OTHER, SELFPAY ==
[2024-08-04 15:12] LABS: FREE T4 0.93 ng/dL (0.76-1.46); TSH 2.99 uIU/mL (0.36-3.74)
== END 2024-08-04 13:41 | disposition home or self-care (01) ==
LOC: LBO 13:44
PROVIDERS: PCP Nurse Practitioner Family; Visit Provider Student in an Organized Health Care Education/Training Program
DX: E03.9 Hypothyroidism, unspecified (principal)
CPT/HCPCS: 36415; 84439; 84443